=== PATIENT | male | born 1965 | race Caucasian/White ===

== ENCOUNTER 2023-01-26 15:09 | Emergency (ER) | payer OTHER ==
[~2023-01-26] VITALS: Ht 185.4 cm; Wt 129.3 kg
[~2023-01-26 15:09] MED LIST: ADDERALL 20 MG20 MG PO; AMPHETAMINE SAL20 MG PO; ASCORBIC ACID500 M3 PO; ASPIR-LOW81 MG PO; B COMPLEX1 EACH PO; CARAFATE1 GM PO; CARAFATE1 GM/10 ML PO; CHILDREN'S160 MG/56 PO; DILAUDID4 MG PO; DULOXETINE HCL20 MG PO; FAMOTIDINE40 MG PO; FERGON240 MG PO; FLUVIRIN 245 MCG/010 IM; FUROSEMIDE20 MG PO; FUROSEMIDE40 MG PO; GABAPENTIN300 MG PO; GOLYTELY SOLU4000 ML PO; GUANFACINE HCL2 MG PO; HYDROCODONE-ACE15 M2 PO; IRON325 M1 PO; LASIX20 MG PO; LIDOCAINE HCL100 ML MT; LISINOPRIL10 MG PO; LORTAB 7.5-5001 EACH PO; MAPAP325 MG PO; METOPROLOL TART25 MG PO; MIRAPEX0.5 MG PO; MULTIVITAMINS1 EAC7 PO; NORCO 5-325 TA1 EACH PO; NORCO 7.5-3251 EACH PO; ONDANSETRON ODT4 MG SL; OXYCODONE HCL10 MG PO; OXYCODONE-ACET1 EAC1 PO; PANTOPRAZOLE SO40 MG PO; PEPCID20 MG PO; PERCOCET 5-3251 EACH PO; POTASSIUM CHLO20 ME1 PO; PRAMIPEXOLE DI0.5 MG PO; PRILOSEC20 MG PO; PROMETHAZINE HC25 M1 PO; PROTONIX40 MG PO; SUCRALFATE1 GM PO; VITAMIN D-40010 MCG PO; ZOFRAN ODT4 MG SL
--- OUTSIDE RECORDS SUMMARY | 2023-01-26 15:12 | XMS ---
PreManage Notification: SARABJIT ESPITIA Security Resident Manager Events No recent Security Events currently on file CRITERIA MET - 6 ED Visits in 6 Months - [facility] - [facility] - 2 Visits in 30 Days CARE PROVIDERS -[place]- Dentist: Consulting Database Administrator [facility] PHONE: [phone] MANUELA SOMMERS [facility] Medicine 06/04/2016-Current PHONE: Unknown Katlyn Reddy Nurse Practitioner: [facility] PHONE: Unknown Deyanira Gudino Community Health Worker 09/20/2022-Current PHONE: [phone] Erica has no Care Guidelines for this patient. Arlene VISIT COUNT (12 MO.) [address] [address] SALLY Montiel TOTAL 18 NOTE: Visits indicate total known visits. ED/UCC VISIT TRACKING (12 MO.) 01/26/2023 15:10 [facility] [place] TYPE: Emergency COMPLAINT: - HEART PALPATATIONS 01/05/2023 13:35 [facility] TYPE: Emergency DIAGNOSES: - Heart failure, unspecified - VOMITING 01/02/2023 08:38 [facility] TYPE: Emergency DIAGNOSES: - Acute cystitis without hematuria - Heart failure, unspecified - HEART PROBLEM 12/30/2022 14:25 [facility] [place] TYPE: Emergency DIAGNOSES: - Cardiomyopathy due to drug and external agent - Localized edema - Other stimulant abuse, uncomplicated - Patient's noncompliance with other medical treatment and regimen due to unspecified reason - RIGHT EAR PROBLEM BILATERAL LEG BLISTERS 12/15/2022 11:11 [facility] [place] TYPE: Emergency DIAGNOSES: - Fluid overload, unspecified - Patient's other noncompliance with medication regimen - CHF SWELLING 11/08/2022 09:45 [facility] [place] TYPE: Emergency DIAGNOSES: - Heart failure, unspecified - Syncope and collapse - LEG PAIN/SWELLING 11/06/2022 08:48 [facility] [place] TYPE: Emergency DIAGNOSES: - Localized edema - Leg swelling 10/10/2022 22:35 [facility] [place] TYPE: Emergency DIAGNOSES: - Acute on chronic systolic (congestive) heart failure - Cardiogenic shock - Hypomagnesemia - Other stimulant abuse, uncomplicated - CP 09/27/2022 12:10 [facility] TYPE: Emergency DIAGNOSES: - Shortness of breath - Unspecified atrial fibrillation - Palpitations 09/11/2022 12:53 [facility] [place] TYPE: Emergency DIAGNOSES: - Other psychoactive substance abuse, uncomplicated - Unspecified atrial fibrillation - SOB 09/05/2022 17:48 [facility] [place] TYPE: Emergency DIAGNOSES: - Unspecified atrial fibrillation - CHEST PAIN 08/09/2022 18:12 [facility] [place] TYPE: Emergency DIAGNOSES: - AFIB 08/06/2022 18:30 [facility] [place] TYPE: Emergency DIAGNOSES: - Nausea with vomiting, unspecified - VOMITING SOB 07/31/2022 07:50 [facility] [place] TYPE: Emergency DIAGNOSES: - Unspecified atrial fibrillation - arm pain difficulty breathing 06/04/2022 08:45 [facility] [place] TYPE: Emergency DIAGNOSES: - Adverse effect of unspecified drugs, medicaments and biological substances, initial encounter - POST OP PROBLEM VOMITING 05/05/2022 15:43 [facility] [place] TYPE: Emergency DIAGNOSES: - Shortness of breath - Syncope and collapse - SHORTNESS OF BREATH 05/04/2022 01:43 [facility] [place] TYPE: Emergency DIAGNOSES: - Epigastric pain - ABD PAIN VOMITING 03/13/2022 17:48 [facility] [place] TYPE: Emergency DIAGNOSES: - Dyspnea, unspecified - Suicidal ideations - DIZZY GI ISSUES INPATIENT VISIT TRACKING (12 MO.) 10/11/2022 09:12 [facility] TYPE: Cardiology DIAGNOSES: - Acute kidney failure with tubular necrosis - Acute kidney failure, unspecified - Acute on chronic systolic (congestive) heart failure - Cardiogenic shock - COVID-19 - Longstanding persistent atrial fibrillation - Other stimulant abuse, uncomplicated - Pneumonia due to coronavirus disease 2018 - Unspecified systolic (congestive) heart failure - Cardiogenic shock 09/11/2022 12:53 [facility] [place] TYPE: Medical Surgical DIAGNOSES: - Hypoxemia - Other psychoactive substance abuse, uncomplicated - Unspecified atrial fibrillation 08/09/2022 18:12 [facility] [place] TYPE: Medical Surgical DIAGNOSES: - Unspecified atrial fibrillation 07/31/2022 07:50 [facility] DIAGNOSES: - Unspecified atrial fibrillation [email or web address]
[2023-01-26] MEDS ORDERED: BUDESONIDE-FO10.2 G1 IH (17:24)
[2023-01-26] MEDS ORDERED: WELLBUTRIN XL150 MG PO (17:25)
[2023-01-26] MEDS ORDERED: DILTIAZEM HCL120 MG PO (17:25)
[2023-01-26] MEDS ORDERED: ELIQUIS5 MG PO (17:26)
[2023-01-26] MEDS ORDERED: JARDIANCE10 MG PO (17:26)
[2023-01-26] MEDS ORDERED: FUROSEMIDE20 MG PO (17:27)
[2023-01-26] MEDS ORDERED: HYDROCODON-ACE1 EA11 PO (17:28)
[2023-01-26] MEDS ORDERED: LOSARTAN POTASS25 MG PO (17:28)
[2023-01-26] MEDS ORDERED: LISINOPRIL-HCT1 EACH PO (17:28)
[2023-01-26] MEDS ORDERED: SPIRONOLACTONE25 MG PO (17:29)
[2023-01-26] MEDS ORDERED: OMEPRAZOLE40 MG PO (17:29)
[2023-01-26] MEDS ORDERED: METOPROLOL SUC100 MG PO (17:29)
[2023-01-26] MEDS ORDERED: TORSEMIDE10 MG PO (17:30)
[2023-01-26] MEDS ORDERED: SENNA8.6 MG PO (17:30)
[2023-01-26] MEDS ORDERED: MAGNESIUM OXID400 M1 PO (18:45)
[2023-01-26 19:11] VITALS: BP 125/99
--- NOTE | 2023-01-26 21:35 | EKG ---
[facility] [address] [place] [address] Signed Atrial fibrillation with slow ventricular response Rightward axis Incomplete right bundle branch block Prolonged QT Abnormal ECG No previous ECGs available Confirmed by LIZ ORTEGA MD ([id number]) on 01/26/2023 9:35:33 PM Electronically Signed By: LIZ ORTEGA MD 01/26/23 2135 PATIENT NAME: NUPURSARABJIT BAUDILIO Electrocardiogram DATE OF : 61 PHYSICIAN: LIZ ORTEGA MD REPORT #: [id number] REPORT IS CONFIDENTIAL AND NOT TO BE RELEASED WITHOUT AUTHORIZATION
== END 2023-01-26 19:11 | disposition home or self-care (01) ==
LOC: ED 15:09
DX: I50.9 Heart failure, unspecified (principal); J44.9 Chronic obstructive pulmonary disease, unspecified; I48.91 Unspecified atrial fibrillation; E11.9 Type 2 diabetes mellitus without complications; Z88.8 Allergy status to other drugs, medicaments and biological substances; Z79.899 Other long term (current) drug therapy
CPT/HCPCS: 36415; 71045; 80053; 83735; 83880; 84484; 85025; 96374; 99285-25; J1940

== ENCOUNTER 2023-01-30 12:06 | Inpatient (IN) | payer OTHER ==
[2023-01-30] VITALS (13 sets, daily range): BP systolic 86–109; BP diastolic 61–94
[~2023-01-30] VITALS: Ht 185.4 cm; Wt 120.7 kg
[~2023-01-30 12:06] MED LIST changes: +BUDESONIDE-FO10.2 G1 IH; +DILTIAZEM HCL120 MG PO; +ELIQUIS5 MG PO; +HYDROCODON-ACE1 EA11 PO; +JARDIANCE10 MG PO; +LISINOPRIL-HCT1 EACH PO; +LOSARTAN POTASS25 MG PO; +MAGNESIUM OXID400 M1 PO; +METOPROLOL SUC100 MG PO; +OMEPRAZOLE40 MG PO; +SENNA8.6 MG PO; +SPIRONOLACTONE25 MG PO; +TORSEMIDE10 MG PO; +WELLBUTRIN XL150 MG PO
--- OUTSIDE RECORDS SUMMARY | 2023-01-30 12:11 | XMS ---
PreManage Notification: SARABJIT ESPITIA Security Budget Assistant Events No recent Security Events currently on file CRITERIA MET - 6 ED Visits in 6 Months - [facility] - [facility] - 2 Visits in 30 Days CARE PROVIDERS -[place]- Dentist: Windows Application Packager [facility] PHONE: [phone] MANUELA SOMMERS [facility] Medicine 06/04/2016-Current PHONE: Unknown Katlyn Reddy Nurse Practitioner: [facility] PHONE: Unknown Deyanira Gudino Community Health Worker 09/20/2022-Current PHONE: [phone] Erica has no Care Guidelines for this patient. Arlene VISIT COUNT (12 MO.) [address] [address] SALLY Montiel TOTAL 19 NOTE: Visits indicate total known visits. ED/UCC VISIT TRACKING (12 MO.) 01/30/2023 12:08 [facility] [place] TYPE: Emergency COMPLAINT: - SYNCOPE EPISODES, DIZZY, NAUSEA, LOW B/P 01/26/2023 15:10 [facility] TYPE: Emergency COMPLAINT: - HEART PALPATATIONS 01/05/2023 13:35 [facility] [place] TYPE: Emergency DIAGNOSES: - Heart failure, unspecified - VOMITING 01/02/2023 08:38 [facility] [place] TYPE: Emergency DIAGNOSES: - Acute cystitis without hematuria - Heart failure, unspecified - HEART PROBLEM 12/30/2022 14:25 [facility] [place] TYPE: Emergency DIAGNOSES: - Cardiomyopathy due to drug and external agent - Localized edema - Other stimulant abuse, uncomplicated - Patient's noncompliance with other medical treatment and regimen due to unspecified reason - RIGHT EAR PROBLEM BILATERAL LEG BLISTERS 12/15/2022 11:11 [facility] [place] TYPE: Emergency DIAGNOSES: - Fluid overload, unspecified - Patient's other noncompliance with medication regimen - CHF SWELLING 11/08/2022 09:45 [facility] [place] TYPE: Emergency DIAGNOSES: - Heart failure, unspecified - Syncope and collapse - LEG PAIN/SWELLING 11/06/2022 08:48 [facility] [place] TYPE: Emergency DIAGNOSES: - Localized edema - Leg swelling 10/10/2022 22:35 [facility] [place] TYPE: Emergency DIAGNOSES: - Acute on chronic systolic (congestive) heart failure - Cardiogenic shock - Hypomagnesemia - Other stimulant abuse, uncomplicated - CP 09/27/2022 12:[address] [facility] TYPE: Emergency DIAGNOSES: - Shortness of breath - Unspecified atrial fibrillation - Palpitations 09/11/2022 12:53 [facility] [place] TYPE: Emergency DIAGNOSES: - Other psychoactive substance abuse, uncomplicated - Unspecified atrial fibrillation - SOB 09/05/2022 17:48 [facility] [place] TYPE: Emergency DIAGNOSES: - Unspecified atrial fibrillation - CHEST PAIN 08/09/2022 18:12 [facility] [place] TYPE: Emergency DIAGNOSES: - AFIB 08/06/2022 18:30 [facility]: [facility] DIAGNOSES: - Nausea with vomiting, unspecified - VOMITING SOB 07/31/2022 07:50 [facility] [place] TYPE: Emergency DIAGNOSES: - Unspecified atrial fibrillation - arm pain difficulty breathing 06/04/2022 08:45 [facility] [place] TYPE: Emergency DIAGNOSES: - Adverse effect of unspecified drugs, medicaments and biological substances, initial encounter - POST OP PROBLEM VOMITING 05/05/2022 15:43 [facility] TYPE: Emergency DIAGNOSES: - Shortness of breath - Syncope and collapse - SHORTNESS OF BREATH 05/04/2022 01:43 [facility] [employer] [place] TYPE: Emergency DIAGNOSES: - Epigastric pain - ABD PAIN VOMITING 03/13/2022 17:48 [facility] [employer] [place] TYPE: Emergency DIAGNOSES: - Dyspnea, unspecified - Suicidal ideations - DIZZY GI ISSUES INPATIENT VISIT TRACKING (12 MO.) 10/11/2022 09:12 [facility] TYPE: Cardiology DIAGNOSES: - Acute kidney failure with tubular necrosis - Acute kidney failure, unspecified - Acute on chronic systolic (congestive) heart failure - Cardiogenic shock - COVID-19 - Longstanding persistent atrial fibrillation - Other stimulant abuse, uncomplicated - Pneumonia due to coronavirus disease 2018 - Unspecified systolic (congestive) heart failure - Cardiogenic shock 09/11/2022 12:53 [facility] [employer] [place] TYPE: Medical Surgical DIAGNOSES: - Hypoxemia - Other psychoactive substance abuse, uncomplicated - Unspecified atrial fibrillation 08/09/2022 18:12 [facility] OR TYPE: Medical Surgical DIAGNOSES: - Unspecified atrial fibrillation 07/31/2022 07:50 [facility] [place] TYPE: Medical Surgical DIAGNOSES: - Unspecified atrial fibrillation [email or web address]
[2023-01-30] MEDS ORDERED: FERROUS SULFAT325 M2 PO (17:07)
[2023-01-30] MEDS ORDERED: VENTOLIN HFA18 GM INH (17:12)
[2023-01-30] MEDS ORDERED: PREGABALIN75 MG PO (17:13)
--- NOTE | 2023-01-30 17:54 | NUR ---
PATIENT ADMITTED TO CCU FOR HYPOTENSION, ADMITTED ON A DOBUTAMINE GTT AT 14 MCG/KG/MIN. PT IS IN A SLOW AFIB, HR 50-60s. INITIAL BPs SYSTOLIC 85-90s. TITRATE OFF DOBUTAMINE TO KEEP MAP >65, AND START PT ON NOREPI. PT'S SWAPNA IN ROOM UPON ADMISSION WHO IS VERY HARD OF HEARING. PT STATES THEY ARE LIVING AT THE [facility], AND THEIR CASHIER AND SALESPERSON IS SWAPNA. IVF STARTED AT 500 ML/HR FOR A TOTAL OF 1500 ML, THEN WILL BE 75 ML/HR. PT GIVEN DINNER AND CAREGIVER TRAY BROUGHT INTO HIS , WHO IS NOW LEAVING FOR THE NIGHT. PT C/O NAUSEA WELL HUNGER. LUNG SOUNDS ARE CLEAR. PT IS ON ROOM AIR. EDEMA PRESENT IN LOWER EXT BUT IS 1+. PT REPORTS HE WAS HOSPITALIZED AT [place] RECENTLY AFTER BEING LIFE FLIGHTED FROM [facility]. WILL OBTAIN RECORDS FROM THEM IF POSSIBLE. CALL LIGHT IN REACH AND PT ORIENTED TO ROOM.
--- NOTE | 2023-01-30 18:57 | NUR ---
LEVOPHED TURNED OFF AT THIS TIME. LAST BP 103/75 (85). CONTINUE TO MONITOR.
--- NOTE | 2023-01-30 20:45 | NUR ---
PT ASSESSED AND FOUND TO BE LAYING IN HOSPITAL BED WATCHING TV. PT IS ALERT AND ORIENTED X 4 WITH A GSC OF 15. PT DOES NOT APPEAR TO BE IN ANY DISTRESS. RESPIRATIONS ARE NON-LABORED, LS CLEAR THROUGHOUT AND PT IS ON RA. ALAM PERAMETERS SET. PT DENIES CP/ DISOCMOFRT OR ANY DIZZINESS. PT STATES HE IS EXPERIENCING SOB, HOWEVER, THIS BEEN AN ONGOING ISSUE AND HIS SYMPTOMS ARE NO WORSE THAN USUAL. PT ABLE TO MOVE ALL FOUR EXTREMITIES, CMS INTACT IN UPPERS, AND LOWER EXTREMITIES WITH NOTED NUMBNESS AND TINGLING SENSATION. THIS IS OF A NORMAL FINDING PT REPORTS. PT WITH C/O BILATERAL LOWER EXTREMITY PAIN. PRN PAIN MED ADMINISTERED AND PT RE-ADJUSTED TO POSITION OF COMFORT IN BED. PT WITH NO FURTHER COMPLAINTS OR CONCERNS AT THIS TIME.
[2023-01-31] VITALS (12 sets, daily range): BP systolic 96–132; BP diastolic 69–101
--- NOTE | 2023-01-31 07:01 | NUR ---
PT REMAINS AWAKE, ALERT AND ORIENTED X 4 WITH A GCS OF 15. PT CONTINUES TO FOLLOW COMMANDS, AND MOVES ALL FOUR EXTREMITIES WITH PURPOSE. PT HAS BEEIN IN A-FIB, NORMOTENSIVE AND A-FEBFRILE THROUGHOUT THE SHIFT. PT'S LS ARE CLEAR, RESPIRATIONS ARE NON-LABORED AND PT CONTINUES TO SPEAK IN FULL SENTANCES. PT WITH ADEQUATE UO. LAST BM NOTED ON 01/30. LABS NA OF 142, K OF 4.1, CREATNINE IMPROVED FROM 3.17 TO 2.54.
--- NOTE | 2023-01-31 07:57 | NUR ---
INTO PATIENT'S ROOM FOR ASSESSMENT, VITALS AND BREAKFSAT. PT RESTING, WATCHING SOMETHIGN ON HIS CELL PHONE AND APPEARS COMFORTABLE, BREATHING EASY. PT REMAINS ON ROOM AIR AND SP02 IS 95%. HR IN THE 60-70s, AFIB. PT HAS REMAINED OFF NOREPI SINCE 1900 LAST EVENING AND BLOOD PRESSURES HAVE BEEN STABLE, AVERAGING 110-120s SYSTOLIC. URINE OUTPUT HAS BEEN GOOD OVERNIGHT. PT ENDORSES THAT HE DOES HAVE SOME SOB, BUT STATES "IT'S ABOUT AVERAGE TO NORMAL AMOUNTS OF SHORTNESS OF BREATH FOR ME." STANDING WEIGHT TO BE OBTAINED. SWELLING IN LEGS REMAINS. FINE CRACKLES AUSCULTATED IN RIGHT LOWER BASE, OTHERWISE CLEAR LUNGS. PLAN OF CARE DISCUSSED. AM MEDS GIVEN. CALL LIGHT WITHIN REACH.
--- NOTE | 2023-01-31 10:22 | NUR ---
PATIENT UP TO BATHROOM. PT STATES, "BREAKFAST WAS TERRIBLE." PT ASKING WHEN MD WILL BE IN TO SEE HIM. NO FURTHER NEEDS.
--- NOTE | 2023-01-31 10:33 | NUR ---
DR. DO IN TO SEE PATIENT AND PLAN OF CARE BEING DISCUSSED. PT BROUGHT IN HIS HOME MEDICATIONS AND WILL LET PHARMACY KNOW FOR MED RECONCILLIATION. CONTINUE TO MONITOR.
--- NOTE | 2023-01-31 13:43 | NUR ---
PATIENT RETURNS FROM MRI AND PUT BACK ON CLINIC OFFICE MANAGER. PT STATES HE IS SHORT OF BREATH AFTER LAYING FLAT FROM MRI. SP02 IS 97% ON ROOM AIR. PT'S IN ROOM AND ASLEEP ON THE COUCH. WILL CONTINUE TO MONITOR.
--- NOTE | 2023-01-31 14:23 | NUR ---
PATIENT UP TO BR WITH URINAL. SLEEPING ON COUCH.
[2023-01-31] MEDS ORDERED: WELLBUTRIN XL300 MG PO (16:58)
[2023-01-31] MEDS ORDERED: METOPROLOL SUCC50 MG PO (16:59)
[2023-01-31] MEDS ORDERED: HYDROCODON-ACE1 EA10 PO (17:00)
--- NOTE | 2023-01-31 17:01 | NUR ---
MED REC COMPLETE
--- NOTE | 2023-01-31 17:24 | NUR ---
Spoke with Dilip. He has returned. He recently was moving from [place] to [place] with his . [facility] are [facility] at the [facility]. He states this is difficult at they have to be out [id number] until 6 pm. He is working with [employer] in their [employer] program. He drives and has a car. He does not use any DME. He states his is disabled and he provides care for her. He has a pcp in [facility]. He would like to switch to a pcp here in [place]. I scheduled him with [facility] last stay, he states he did not make the visit. He has free transport from [facility]. I gave him PPCphone number to call and schedule an appt to establish care. Pt denies needs and is working with different agencies. No needs at this time.
[2023-02-01] VITALS (8 sets, daily range): BP systolic 97–138; BP diastolic 63–138
--- NOTE | 2023-02-01 06:41 | NUR ---
PT REMAINS ALERT AND ORIENTED X 4 WITH A GCS OF 15. PT FOLLOWS COMMANDS APPROPIRATELY AND MOVES ALL FOUR EXTREMITIES WITH PURPOSE. PT HAS BEEN IN A-FIB, NORMOTENSIVE AND A-FEBRILE. PT IS CURRENTLY ON PO ANTI-COAG.. PT WITH ADQUATE UO. LAST BM NOTED ON 01/30. PT CONTINUES TO EXPERIENCE PAIN IN BILATERAL LOWER EXTREMITIES. PT STATES HE HAS RESLTESS LEG SYNDROME AND THINKS THIS MAY BE THE CAUSE OF HIS PAIN. LABS: BMP REVEALS NA OF 142, K 3.9, AND IMPROVED CREAT 1.79. HEMOGLOBIN A1C OF 6.2
--- NOTE | 2023-02-01 07:30 | NUR ---
REPORT RECIEVED FROM SOLVENT PROCESS EXTRACTOR OPERATOR RN. PATIENT RESTING IN BED ON RA AT THIS TIME. HEART MONITOR IN PLACE. PATIENT DENIES ANY NEEDS AT THIS TIME. CALL LIGHT IN REACH. BED IN LOWEST POSITION.
--- NOTE | 2023-02-01 09:30 | NUR ---
THIS RN AND STUDENT ESCOBEDO IN TO CARE FOR PATIENT. PATIENTS ASSESSMENT DONE. PATIENTS BREATH SOUNDS CLEAR IN UPPERS AND COARSE IN LOWER LOBES. PATIENT ON RA. PATIENT PREPORTS MINIMAL SOB AT THIS TIME AND STATES "I FEEL LIKE MY NORMAL SELF, I ALWAYS HAVE SOME SOB". PATIENT BOWEL TONES ACTIVE. PATIENT FINISHED HIS BREAKFAST WITH NO ISSUES. PATIENT HAS 1+ EDEMA IN BLE. PATIENT BOWEL TONES ACTIVE. PATIENT DENIES ANY OTHER NEEDS AT THIS TIME. MEDICATIONS GIVEN. CALL LIGHT IN REACH.
[2023-02-01] MEDS ORDERED: FERROUS SULFAT325 M2 PO (10:05)
[2023-02-01] MEDS ORDERED: ELIQUIS5 MG PO (10:06)
[2023-02-01] MEDS ORDERED: LOSARTAN POTASS25 MG PO (10:07)
[2023-02-01] MEDS ORDERED: METOPROLOL SUCC25 MG PO (10:07)
[2023-02-01] MEDS ORDERED: TORSEMIDE10 MG PO (10:08)
[2023-02-01] MEDS ORDERED: MAGNESIUM OXID400 M1 PO (10:08)
[2023-02-01] MEDS ORDERED: WELLBUTRIN XL300 MG PO (10:08)
[2023-02-01] MEDS ORDERED: SENNA8.6 MG PO (10:09)
[2023-02-01] MEDS ORDERED: OMEPRAZOLE40 MG PO (10:09)
[2023-02-01] MEDS ORDERED: ASCORBIC ACID500 M3 PO (10:10)
[2023-02-01] MEDS ORDERED: VITAMIN D-40010 MCG PO (10:10)
--- NOTE | 2023-02-01 11:00 | NUR ---
DO IN TO SEE PATIENT AND REVIEWED PLAN OF CARE. PLAN FOR PATIENT TO DISCHARGE PATIENT AND PATIENT IS AGREEABLE TO THIS PLAN.
--- NOTE | 2023-02-01 11:45 | NUR ---
PHARMACY IN TO REVIEW DISCHARGE INSTRUCTIONS FOR HIS MEDICATIONS. LUNCH AT THE BEDSIDE AND STUDENT RN ESCOBEDO IN TO FOLLOW WITH CARE.
--- NOTE | 2023-02-01 12:30 | NUR ---
THIS RN AND STUDENT RN ESCOBEDO IN TO REVIEW DISCHARGE WITH PATIENT AND HIS SIGNIFICANT OTHER. PHARMACY IN ALREADY TO REVIEW DISCHARGE MEDICATIONS AND PHARMACIST WROTE ALL PATIENTS MEDICATIONS ON A FORUM TO HELP PATIENT COMPLIANCE. IV'S DCD BY STUDENT RN. VITALS DONE. PATIENT DRESSED WITH NO ISSUES. THIS RN AND STUDENT RN WHEELED PATIENT TO THE FRONT WITH HIS SIGNIFICANT OTHER AND ASSISTED PATIENT TO HIS CAR. APT WAS MADE PRIOR TO PATIENTS DISCHARGE FOR 10AM MondayJanuary. APT CARD GIVEN TO PATIENT.
== END 2023-02-01 12:45 | disposition home or self-care (01) | DRG 683 ==
LOC: ED 12:06 → CCU 16:44
PROVIDERS: ADMIT Internal Medicine; ATTEND Internal Medicine
DX: N17.9 Acute kidney failure, unspecified (principal); E87.20 Acidosis, unspecified; I50.22 Chronic systolic (congestive) heart failure; I13.0 Hypertensive heart and chronic kidney disease with heart failure and stage 1 through stage 4 chronic kidney disease, or unspecified chronic kidney disease; I48.20 Chronic atrial fibrillation, unspecified; N18.31 Chronic kidney disease, stage 3a; J44.9 Chronic obstructive pulmonary disease, unspecified; I95.9 Hypotension, unspecified; G62.9 Polyneuropathy, unspecified; R73.03 Prediabetes; G89.4 Chronic pain syndrome; F15.10 Other stimulant abuse, uncomplicated; K27.9 Peptic ulcer, site unspecified, unspecified as acute or chronic, without hemorrhage or perforation; Z86.711 Personal history of pulmonary embolism; Z98.84 Bariatric surgery status; Z88.8 Allergy status to other drugs, medicaments and biological substances
CPT/HCPCS: 36415; 70450; 70551; 71045; 80048; 80053; 82570; 83036; 83880; 84300; 84550; 85025; 96361; 96374; 96375; 96376; 99285-25; A9270; J1250; J7040; J7121

== ENCOUNTER 2023-03-28 12:33 | Emergency (ER) | payer OTHER ==
[~2023-03-28] VITALS: Ht 185.4 cm; Wt 115.2 kg
--- OUTSIDE RECORDS SUMMARY | ~2023-03-28 | XMS | Continuity of Care Document ---
Demographics + + + | Address | [address] [facility] [address] | | | [place] [address] | + + + | Preferred Language | Unknown | + + + | Marital Status | | + + + | Mormon Affiliation | Unknown | + + + | Race | White | + + + | Ethnic Group | Not or | + + + Author + + + | Author | [facility] | + + + | Organization | [facility] | + + + | Address | [address] | | | [place] [address] | + + + | Phone | | + + + Care Team Providers + + + + | Care Water Tanker Driver Name | Role | Phone | + + + + Unavailable | Unavailable | + + + + Unavailable | Unavailable | + + + + Unavailable | Unavailable | + + + + Unavailable | Unavailable | + + + + Allergies and Intolerances + + + + + | date | description | facility | type | + + + + + | (no date) | Valium | [facility] | (unknown) | | | | [facility] | | + + + + + | (no date) | Valium 2 MG Oral | [facility] | (unknown) | | | Tablet | [facility] | | + + + + + | (no date) | Diazepam | [facility] | | + + + + + | (no date) | diazepam | [facility] | | + + + + + | (no date) | Diazepam | [facility] ([facility] | | + + + + + | (no date) | diazepam | [facility] | (unknown) | + + + + + | (no date) | Diazepam | [facility] ([facility] | | [facility] | | + + + + + Encounters No information. Functional Status No information. Immunizations + + + + | date | description | facility | + + + + | 2023-01-26 00:00 | No vaccine administered | [facility] | + + + + Medications + + + + | date | description | facility | + + + + | 2023-01-26 00:00 | LIDOCAINE 2% VISCOUS | [facility] | + + + + | 2023-02-01 00:00 | LIDOCAINE 2% VISCOUS | [facility] | + + + + | 2023-02-17 00:00 | LIDOCAINE 2% VISCOUS | [facility] | + + + + | 2023-03-12 00:00 | LIDOCAINE 2% VISCOUS | [facility] | + + + + | 2023-01-26 00:00 | lidocaine hydrochloride 20 | [facility] | | | MG/ML Mucous Membrane | | | | Topical Rody | | + + + + | 2016-02-09 00:00 | FAMOTIDINE | [facility] | + + + + | 2016-02-09 00:00 | FAMOTIDINE | [facility] | + + + + | 2016-08-11 00:00 | FAMOTIDINE | [facility] | + + + + | 2016-08-11 00:00 | FAMOTIDINE | [facility] | + + + + | 2016-02-09 00:00 | famotidine 20 MG Oral | [facility] | | | Tablet [Pepcid] | | + + + + | 2016-08-11 00:00 | famotidine 20 MG Oral | [facility] | | | Tablet [Pepcid] | | + + + + | 2014-10-10 00:00 | OXYCODONE | [facility] | | | HCL/ACETAMINOPHEN | | + + + + | 2014-10-10 00:00 | OXYCODONE | [facility] | | | HCL/ACETAMINOPHEN | | + + + + | 2014-11-02 00:00 | OXYCODONE | [facility] | | | HCL/ACETAMINOPHEN | | + + + + | 2014-11-02 00:00 | OXYCODONE | [facility] | | | HCL/ACETAMINOPHEN | | + + + + | 2016-04-22 00:00 | OXYCODONE | [facility] | | | HCL/ACETAMINOPHEN | | + + + + | 2016-04-22 00:00 | OXYCODONE | [facility] | | | HCL/ACETAMINOPHEN | | + + + + | 2023-01-26 00:00 | OXYCODONE | [facility] | | | HCL/ACETAMINOPHEN | | + + + + | 2023-02-01 00:00 | OXYCODONE | [facility] | | | HCL/ACETAMINOPHEN | | + + + + | 2023-02-17 00:00 | OXYCODONE | [facility] | | | HCL/ACETAMINOPHEN | | + + + + | 2023-03-12 00:00 | OXYCODONE | [facility] | | | HCL/ACETAMINOPHEN | | + + + + | 2014-10-10 00:00 | acetaminophen 325 MG / | [facility] | | | oxycodone hydrochloride 5 | | | | MG Oral Tab | | + + + + | 2014-11-02 00:00 | acetaminophen 325 MG / | [facility] | | | oxycodone hydrochloride 5 | | | | MG Oral Tab | | + + + + | 2016-04-22 00:00 | acetaminophen 325 MG / | [facility] | | | oxycodone hydrochloride 5 | | | | MG Oral Tab | | + + + + | 2023-01-26 00:00 | acetaminophen 325 MG / | [facility] | | | oxycodone hydrochloride 5 | | | | MG Oral Tab | | + + + + | 2023-01-18 00:00 | Iron 325 (65 Fe) MG Oral | [facility] | | | Tablet | | + + + + | 2019-05-21 00:00 | Iron 325 (65 Fe)MG Oral | [facility] | | | Tablet | | + + + + | 2019-11-25 00:00 | ProAir HFA 108 (90 Base) | [facility] | | | MCG/ACT Inhalation Aerosol | | | | Solution | | + + + + | 2020-03-09 00:00 | ProAir HFA 108 (90 Base) | [facility] | | | MCG/ACT Inhalation Aerosol | | | | Solution | | + + + + | 2023-01-05 00:00 | Budesonide-Formoterol | [facility] | | | Fumarate 160-4.5 MCG/ACT | | | | Inhalation Aerosol | | + + + + | 2014-09-05 00:00 | Lisinopril 20 MG OR TABS | [facility] | | | | | + + + + | 2023-01-05 00:00 | 60 ACTUAT budesonide 0.16 | [facility] | | | MG/ACTUAT / formoterol | | | | fumarate 0.0045 MG/ACTUAT | | | | Metered Dose Inhaler | | + + + + | 2022-06-15 00:00 | 60 ACTUAT budesonide 0.16 | [facility] | | | MG/ACTUAT / formoterol | | | | fumarate 0.0045 MG/ACTUAT | | | | Metered Dose Inhaler | | | | [Symbicort] | | + + + + | 2022-08-17 00:00 | 60 ACTUAT budesonide 0.16 | [facility] | | | MG/ACTUAT / formoterol | | | | fumarate 0.0045 MG/ACTUAT | | | | Metered Dose Inhaler | | | | [Symbicort] | | + + + + | 2022-06-15 00:00 | Symbicort 160-4.5 MCG/ACT | [facility] | | | Inhalation Aerosol | | + + + + | 2022-08-17 00:00 | Symbicort 160-4.5 MCG/ACT | [facility] | | | Inhalation Aerosol | | + + + + | 2014-06-09 00:00 | ASPIRIN | [facility] | + + + + | 2014-06-09 00:00 | ASPIRIN | [facility] | + + + + | 2014-06-09 00:00 | aspirin 81 MG Delayed | [facility] | | | Release Oral Tablet | | | | [Aspir-Low] | | + + + + | 2014-09-05 00:00 | acetaminophen 300 MG / | [facility] | | | hydrocodone bitartrate 5 MG | | | | Oral Tablet [Vicodin] | | + + + + | 2023-01-26 00:00 | Budesonide/Formoterol | [facility] | | | Fumarate | | + + + + | 2023-02-01 00:00 | Budesonide/Formoterol | [facility] | | | Fumarate | | + + + + | 2023-02-17 00:00 | Budesonide/Formoterol | [facility] | | | Fumarate | | + + + + | 2023-03-12 00:00 | Budesonide/Formoterol | [facility] | | | Fumarate | | + + + + | 2023-01-26 00:00 | budesonide 0.16 MG/ACTUAT | [facility] | | | / formoterol fumarate | | | | 0.0045 MG/AC | | + + + + | 2023-01-26 00:00 | APIXABAN | [facility] | + + + + | 2023-02-01 00:00 | APIXABAN | [facility] | + + + + | 2023-02-17 00:00 | APIXABAN | [facility] | + + + + | 2023-03-12 00:00 | APIXABAN | [facility] | + + + + | 2023-01-18 00:00 | apixaban 5 MG Oral Tablet | [facility] | | | [Eliquis] | | + + + + | 2023-01-24 00:00 | apixaban 5 MG Oral Tablet | [facility] | | | [Eliquis] | | + + + + | 2023-01-26 00:00 | apixaban 5 MG Oral Tablet | [facility] | | | [Eliquis] | | + + + + | 2014-09-05 00:00 | Multiple Vitamins OR TABS | [facility] | | | | | + + + + | 2019-05-21 00:00 | Centrum Silver Ultra Mens | [facility] | | | Oral Tablet | | + + + + | 2023-01-26 00:00 | EMPAGLIFLOZIN | [facility] | + + + + | 2023-02-01 00:00 | EMPAGLIFLOZIN | [facility] | + + + + | 2023-02-17 00:00 | EMPAGLIFLOZIN | [facility] | + + + + | 2023-03-12 00:00 | EMPAGLIFLOZIN | [facility] | + + + + | 2023-01-18 00:00 | empagliflozin 10 MG Oral | [facility] | | | Tablet [Jardiance] | | + + + + | 2023-01-26 00:00 | empagliflozin 10 MG Oral | [facility] | | | Tablet [Jardiance] | | + + + + | 2023-02-27 00:00 | Vitamin D | [facility] | | | (Cholecalciferol) 10 MCG | | | | (400 UNIT) Oral Capsule | | + + + + | 2019-05-21 00:00 | Vitamin B12 1000MCG Oral | [facility] | | | Tablet Extended Release | | + + + + | 2014-09-05 00:00 | Vicodin 5-300 MG OR TABS | [facility] | | | | | + + + + | 2019-11-25 00:00 | Potassium Chloride ER 20 | [facility] | | | MEQ Oral Tablet Extended | | | | Release | | + + + + | 2019-05-21 00:00 | Potassium Chloride ER | [facility] | | | 20MEQ Oral Tablet Extended | | | | Release | | + + + + | 2023-01-18 00:00 | Eliquis 5 MG Oral Tablet | [facility] | | | | | + + + + | 2023-01-24 00:00 | Eliquis 5 MG Oral Tablet | [facility] | | | | | + + + + | 2023-01-18 00:00 | Jardiance 10 MG Oral | [facility] | | | Tablet | | + + + + | 2023-02-27 00:00 | Ascorbic Acid 500 MG Oral | [facility] | | | Tablet | | + + + + | 2022-06-15 00:00 | benzonatate 100 MG Oral | [facility] | | | Capsule | | + + + + | 2023-01-26 00:00 | GUANFACINE HCL | [facility] | + + + + | 2023-02-01 00:00 | GUANFACINE HCL | [facility] | + + + + | 2023-02-17 00:00 | GUANFACINE HCL | [facility] | + + + + | 2023-03-12 00:00 | GUANFACINE HCL | [facility] | + + + + | 2023-01-26 00:00 | guanfacine 2 MG Oral | [facility] | | | Tablet | | + + + + | 2023-01-26 00:00 | | [facility] | | | LISINOPRIL/HYDROCHLOROTHIAZ | | | | RACHEL | | + + + + | 2023-02-01 00:00 | | [facility] | | | LISINOPRIL/HYDROCHLOROTHIAZ | | | | RACHEL | | + + + + | 2023-02-17 00:00 | | [facility] | | | LISINOPRIL/HYDROCHLOROTHIAZ | | | | RACHEL | | + + + + | 2023-03-12 00:00 | | [facility] | | | LISINOPRIL/HYDROCHLOROTHIAZ | | | | RACHEL | | + + + + | 2019-05-21 00:00 | hydrochlorothiazide 12.5 | [facility] | | | MG / lisinopril 20 MG Oral | | | | Tablet | | + + + + | 2019-11-25 00:00 | hydrochlorothiazide 12.5 | [facility] | | | MG / lisinopril 20 MG Oral | | | | Tablet | | + + + + | 2020-03-09 00:00 | hydrochlorothiazide 12.5 | [facility] | | | MG / lisinopril 20 MG Oral | | | | Tablet | | + + + + | 2022-06-15 00:00 | hydrochlorothiazide 12.5 | [facility] | | | MG / lisinopril 20 MG Oral | | | | Tablet | | + + + + | 2022-06-29 00:00 | hydrochlorothiazide 12.5 | [facility] | | | MG / lisinopril 20 MG Oral | | | | Tablet | | + + + + | 2023-01-26 00:00 | hydrochlorothiazide 12.5 | [facility] | | | MG / lisinopril 20 MG Oral | | | | Tablet | | + + + + | 2020-03-09 00:00 | ondansetron 4 MG Oral | [facility] | | | Tablet | | + + + + | 2020-06-16 00:00 | ondansetron 4 MG Oral | [facility] | | | Tablet | | + + + + | 2023-01-26 00:00 | POTASSIUM CHLORIDE | [facility] | + + + + | 2023-02-01 00:00 | POTASSIUM CHLORIDE | [facility] | + + + + | 2023-02-17 00:00 | POTASSIUM CHLORIDE | [facility] | + + + + | 2023-03-12 00:00 | POTASSIUM CHLORIDE | [facility] | + + + + | 2019-05-21 00:00 | potassium chloride 20 MEQ | [facility] | | | Extended Release Oral | | | | Tablet | | + + + + | 2019-11-25 00:00 | potassium chloride 20 MEQ | [facility] | | | Extended Release Oral | | | | Tablet | | + + + + | 2023-01-26 00:00 | potassium chloride 20 MEQ | [facility] | | | Extended Release Oral | | | | Tablet | | + + + + | 2019-05-21 00:00 | ranitidine 150 MG Oral | [facility] | | | Tablet | | + + + + | 2023-01-26 00:00 | TORSEMIDE | [facility] | + + + + | 2023-02-01 00:00 | TORSEMIDE | [facility] | + + + + | 2023-02-17 00:00 | TORSEMIDE | [facility] | + + + + | 2023-03-12 00:00 | TORSEMIDE | [facility] | + + + + | 2022-12-26 00:00 | torsemide 10 MG Oral | [facility] | | | Tablet | | + + + + | 2023-01-26 00:00 | torsemide 10 MG Oral | [facility] | | | Tablet | | + + + + | 2023-01-26 00:00 | Magnesium Oxide | [facility] | + + + + | 2023-01-26 00:00 | Magnesium Oxide | [facility] | + + + + | 2023-02-01 00:00 | Magnesium Oxide | [facility] | + + + + | 2023-01-26 00:00 | magnesium oxide 400 MG | [facility] | | | Oral Tablet | | + + + + | 2022-06-15 00:00 | ascorbic acid 500 MG Oral | [facility] | | | Capsule | | + + + + | 2023-02-16 00:00 | ascorbic acid 500 MG Oral | [facility] | | | Capsule | | + + + + | 2023-01-26 00:00 | OMEPRAZOLE | [facility] | + + + + | 2023-02-01 00:00 | OMEPRAZOLE | [facility] | + + + + | 2023-02-17 00:00 | OMEPRAZOLE | [facility] | + + + + | 2023-03-12 00:00 | OMEPRAZOLE | [facility] | + + + + | 2023-01-26 00:00 | omeprazole 40 MG Delayed | [facility] | | | Release Oral Capsule | | + + + + | 2023-02-17 00:00 | SPIRONOLACTONE | [facility] | + + + + | 2023-03-12 00:00 | SPIRONOLACTONE | [facility] | + + + + | 2022-12-26 00:00 | Spironolactone 25 MG Oral | [facility] | | | Tablet | | + + + + | 2023-01-23 00:00 | FeroSul 325 (65 Fe) MG | [facility] | | | Oral Tablet | | + + + + | 2019-05-21 00:00 | sucralfate 100 MG/ML Oral | [facility] | | | Suspension [Carafate] | | + + + + | 2022-06-15 00:00 | sucralfate 100 MG/ML Oral | [facility] | | | Suspension [Carafate] | | + + + + | 2014-09-05 00:00 | sucralfate 1000 MG Oral | [facility] | | | Tablet [Carafate] | | + + + + | 2023-01-26 00:00 | ACETAMINOPHEN | [facility] | + + + + | 2023-02-01 00:00 | ACETAMINOPHEN | [facility] | + + + + | 2023-02-17 00:00 | ACETAMINOPHEN | [facility] | + + + + | 2023-03-12 00:00 | ACETAMINOPHEN | [facility] | + + + + | 2023-01-26 00:00 | acetaminophen 325 MG Oral | [facility] | | | Tablet [Mapap] | | + + + + | 2022-06-15 00:00 | Vitamin C 500 MG Oral | [facility] | | | Capsule | | + + + + | 2023-02-16 00:00 | Vitamin C 500 MG Oral | [facility] | | | Capsule | | + + + + | 2019-05-21 00:00 | vitamin B12 1 MG Extended | [facility] | | | Release Oral Tablet | | + + + + | 2019-11-25 00:00 | Bactrim DS 800-160 MG Oral | [facility] | | | Tablet | | + + + + | 2014-09-05 00:00 | pantoprazole 20 MG Delayed | [facility] | | | Release Oral Tablet | | + + + + | 2022-06-15 00:00 | Benzonatate 100 MG Oral | [facility] | | | Capsule | | + + + + | 2023-01-26 00:00 | ASCORBIC ACID | [facility] | + + + + | 2023-02-01 00:00 | ASCORBIC ACID | [facility] | + + + + | 2023-02-17 00:00 | ASCORBIC ACID | [facility] | + + + + | 2023-03-12 00:00 | ASCORBIC ACID | [facility] | + + + + | 2023-01-26 00:00 | ascorbic acid 500 MG Oral | [facility] | | | Tablet | | + + + + | 2019-11-25 00:00 | | [facility] | | | Lisinopril-hydroCHLOROthiaz | | | | rachel 20-12.5 MG Oral Tablet | | + + + + | 2020-03-09 00:00 | | [facility] | | | Lisinopril-hydroCHLOROthiaz | | | | rachel 20-12.5 MG Oral Tablet | | + + + + | 2022-06-15 00:00 | | [facility] | | | Lisinopril-hydroCHLOROthiaz | | | | rachel 20-12.5 MG Oral Tablet | | + + + + | 2022-06-29 00:00 | | [facility] | | | Lisinopril-hydroCHLOROthiaz | | | | rachel 20-12.5 MG Oral Tablet | | + + + + | 2019-05-21 00:00 | | [facility] | | | Lisinopril-hydroCHLOROthiaz | | | | rachel 20-12.5MG Oral Tablet | | + + + + | 2023-01-26 00:00 | PANTOPRAZOLE SODIUM | [facility] | + + + + | 2023-02-01 00:00 | PANTOPRAZOLE SODIUM | [facility] | + + + + | 2023-02-17 00:00 | PANTOPRAZOLE SODIUM | [facility] | + + + + | 2023-03-12 00:00 | PANTOPRAZOLE SODIUM | [facility] | + + + + | 2023-01-26 00:00 | pantoprazole 40 MG Delayed | [facility] | | | Release Oral Tablet | | | | [Protonix] | | + + + + | 2023-01-27 00:00 | Magnesium Oxide 400 MG | [facility] | | | Oral Tablet | | + + + + | 2020-03-09 00:00 | Ondansetron HCl 4 MG Oral | [facility] | | | Tablet | | + + + + | 2020-06-16 00:00 | Ondansetron HCl 4 MG Oral | [facility] | | | Tablet | | + + + + | 2019-05-21 00:00 | raNITIdine HCl 150MG Oral | [facility] | | | Tablet | | + + + + | 2023-01-26 00:00 | CHOLECALCIFEROL (VITAMIN | [facility] | | | D3) | | + + + + | 2023-02-01 00:00 | Cholecalciferol (Vitamin | [facility] | | | D3) | | + + + + | 2023-02-17 00:00 | Cholecalciferol (Vitamin | [facility] | | | D3) | | + + + + | 2023-03-12 00:00 | Cholecalciferol (Vitamin | [facility] | | | D3) | | + + + + | 2023-01-26 00:00 | cholecalciferol 0.01 MG | [facility] | | | Oral Tablet | | + + + + | 2023-01-26 00:00 | FERROUS SULFATE | [facility] | + + + + | 2023-02-01 00:00 | FERROUS SULFATE | [facility] | + + + + | 2023-02-17 00:00 | FERROUS SULFATE | [facility] | + + + + | 2023-03-12 00:00 | FERROUS SULFATE | [facility] | + + + + | 2023-02-01 00:00 | Ferrous Sulfate | [facility] | + + + + | 2023-02-17 00:00 | Ferrous Sulfate | [facility] | + + + + | 2023-03-12 00:00 | Ferrous Sulfate | [facility] | + + + + | 2023-01-26 00:00 | ferrous sulfate 325 MG | [facility] | | | Oral Tablet | | + + + + | 2023-01-26 00:00 | FUROSEMIDE | [facility] | + + + + | 2023-02-01 00:00 | FUROSEMIDE | [facility] | + + + + | 2023-02-17 00:00 | FUROSEMIDE | [facility] | + + + + | 2023-03-12 00:00 | FUROSEMIDE | [facility] | + + + + | 2019-05-21 00:00 | furosemide 20 MG Oral | [facility] | | | Tablet | | + + + + | 2019-11-25 00:00 | furosemide 20 MG Oral | [facility] | | | Tablet | | + + + + | 2020-03-09 00:00 | furosemide 20 MG Oral | [facility] | | | Tablet | | + + + + | 2023-01-26 00:00 | furosemide 20 MG Oral | [facility] | | | Tablet | | + + + + | 2023-01-26 00:00 | GABAPENTIN | [facility] | + + + + | 2019-05-14 00:00 | gabapentin 300 MG Oral | [facility] | | | Capsule | | + + + + | 2020-03-09 00:00 | gabapentin 300 MG Oral | [facility] | | | Capsule | | + + + + | 2020-06-15 00:00 | gabapentin 300 MG Oral | [facility] | | | Capsule | | + + + + | 2020-08-25 00:00 | gabapentin 300 MG Oral | [facility] | | | Capsule | | + + + + | 2023-01-26 00:00 | gabapentin 300 MG Oral | [facility] | | | Capsule | | + + + + | 2023-01-26 00:00 | SENNOSIDES | [facility] | + + + + | 2023-02-01 00:00 | SENNOSIDES | [facility] | + + + + | 2023-02-17 00:00 | SENNOSIDES | [facility] | + + + + | 2023-03-12 00:00 | SENNOSIDES | [facility] | + + + + | 2023-01-26 00:00 | sennosides, [facility] 8.6 MG | [facility] | | | Oral Tablet | | + + + + | 2023-01-26 00:00 | SPIRONOLACTONE | [facility] | + + + + | 2023-02-01 00:00 | SPIRONOLACTONE | [facility] | + + + + | 2023-02-17 00:00 | SPIRONOLACTONE | [facility] | + + + + | 2023-03-12 00:00 | SPIRONOLACTONE | [facility] | + + + + | 2022-12-26 00:00 | spironolactone 25 MG Oral | [facility] | | | Tablet | | + + + + | 2023-01-26 00:00 | spironolactone 25 MG Oral | [facility] | | | Tablet | | + + + + | 2023-02-27 00:00 | ascorbic acid 500 MG | [facility] | | | Chewable Tablet | | + + + + | 2023-01-26 00:00 | LISINOPRIL | [facility] | + + + + | 2023-02-01 00:00 | LISINOPRIL | [facility] | + + + + | 2023-02-17 00:00 | LISINOPRIL | [facility] | + + + + | 2023-03-12 00:00 | LISINOPRIL | [facility] | + + + + | 2023-01-26 00:00 | lisinopril 10 MG Oral | [facility] | | | Tablet | | + + + + | 2014-09-05 00:00 | lisinopril 20 MG Oral | [facility] | | | Tablet | | + + + + | 2023-01-26 00:00 | PANTOPRAZOLE SODIUM | [facility] | + + + + | 2023-02-01 00:00 | PANTOPRAZOLE SODIUM | [facility] | + + + + | 2023-02-17 00:00 | PANTOPRAZOLE SODIUM | [facility] | + + + + | 2023-03-12 00:00 | PANTOPRAZOLE SODIUM | [facility] | + + + + | 2019-05-21 00:00 | pantoprazole 40 MG Delayed | [facility] | | | Release Oral Tablet | | + + + + | 2023-01-26 00:00 | pantoprazole 40 MG Delayed | [facility] | | | Release Oral Tablet | | + + + + | 2023-01-26 00:00 | SUCRALFATE | [facility] | + + + + | 2023-02-01 00:00 | SUCRALFATE | [facility] | + + + + | 2023-02-17 00:00 | SUCRALFATE | [facility] | + + + + | 2023-03-12 00:00 | SUCRALFATE | [facility] | + + + + | 2023-01-26 00:00 | sucralfate 1000 MG Oral | [facility] | | | Tablet | | + + + + | 2022-06-15 00:00 | Carafate 1 GM/10ML Oral | [facility] | | | Suspension | | + + + + | 2019-05-21 00:00 | Carafate 1GM/10ML Oral | [facility] | | | Suspension | | + + + + | 2014-09-05 00:00 | Carafate 1 GM OR TABS | [facility] | | | | | + + + + | 2023-01-18 00:00 | Losartan Potassium 25 MG | [facility] | | | Oral Tablet | | + + + + | 2023-02-27 00:00 | cholecalciferol 0.01 MG | [facility] | | | Oral Capsule | | + + + + | 2023-01-18 00:00 | Albuterol Sulfate HFA 108 | [facility] | | | (90 Base) MCG/ACT | | | | Inhalation Aerosol Solution | | | | | | + + + + | 2023-02-15 00:00 | Albuterol Sulfate HFA 108 | [facility] | | | (90 Base) MCG/ACT | | | | Inhalation Aerosol Solution | | | | | | + + + + | 2023-01-18 00:00 | Senna 8.6 MG Oral Tablet | [facility] | | | | | + + + + | 2022-12-26 00:00 | Torsemide 10 MG Oral | [facility] | | | Tablet | | + + + + | 2020-03-09 00:00 | Gabapentin 300 MG Oral | [facility] | | | Capsule | | + + + + | 2020-06-15 00:00 | Gabapentin 300 MG Oral | [facility] | | | Capsule | | + + + + | 2020-08-25 00:00 | Gabapentin 300 MG Oral | [facility] | | | Capsule | | + + + + | 2019-05-14 00:00 | Gabapentin 300MG Oral | [facility] | | | Capsule | | + + + + | 2023-02-01 00:00 | Pregabalin | [facility] | + + + + | 2023-02-17 00:00 | Pregabalin | [facility] | + + + + | 2023-03-12 00:00 | Pregabalin | [facility] | + + + + | 2014-09-05 00:00 | Pramipexole | [facility] | | | Dihydrochloride 0.125 MG OR | | | | TABS | | + + + + | 2022-06-15 00:00 | Pramipexole | [facility] | | | Dihydrochloride 0.25 MG | | | | Oral Tablet | | + + + + | 2022-09-21 00:00 | amoxicillin 875 MG / | [facility] | | | clavulanate 125 MG Oral | | | | Tablet | | + + + + | 2023-01-26 00:00 | AMPHET ASP/AMPHET/D-AMPHET | [facility] | | | | | + + + + | 2023-02-01 00:00 | AMPHET ASP/AMPHET/D-AMPHET | [facility] | | | | | + + + + | 2023-02-17 00:00 | AMPHET ASP/AMPHET/D-AMPHET | [facility] | | | | | + + + + | 2023-03-12 00:00 | AMPHET ASP/AMPHET/D-AMPHET | [facility] | | | | | + + + + | 2023-01-26 00:00 | amphetamine aspartate 5 MG | [facility] | | | / amphetamine sulfate 5 MG | | | | / dext | | + + + + | 2023-01-26 00:00 | AMPHET ASP/AMPHET/D-AMPHET | [facility] | | | | | + + + + | 2023-02-01 00:00 | AMPHET ASP/AMPHET/D-AMPHET | [facility] | | | | | + + + + | 2023-02-17 00:00 | AMPHET ASP/AMPHET/D-AMPHET | [facility] | | | | | + + + + | 2023-03-12 00:00 | AMPHET ASP/AMPHET/D-AMPHET | [facility] | | | | | + + + + | 2023-01-26 00:00 | amphetamine aspartate 5 MG | [facility] | | | / amphetamine sulfate 5 MG | | | | / dext | | + + + + | 2014-09-05 00:00 | Pantoprazole Sodium 20 MG | [facility] | | | OR [facility] | | + + + + | 2019-05-21 00:00 | Pantoprazole Sodium 40MG | [facility] | | | Oral Tablet Delayed Release | | | | | | + + + + | 2019-05-14 00:00 | nystatin 100 UNT/MG | [facility] | | | Topical Powder | | + + + + | 2022-09-21 00:00 | dilTIAZem HCl 120 MG Oral | [facility] | | | Tablet | | + + + + | 2023-01-18 00:00 | dilTIAZem HCl 120 MG Oral | [facility] | | | Tablet | | + + + + | 2014-09-05 00:00 | Adderall 12.5 MG OR TABS | [facility] | | | | | + + + + | 2014-09-05 00:00 | amphetamine aspartate 3.125 | [facility] | | | MG / amphetamine sulfate | | | | 3.125 MG / | | | | dextroamphetamine | | | | saccharate 3.125 MG / | | | | dextroamphetamine sulfate | | | | 3.125 MG Oral Tablet | | | | [Adderall] | | + + + + | 2023-02-01 00:00 | Metoprolol Succinate ER 25 | [facility] | | | MG Oral Tablet Extended | | | | Release 24 Hour | | + + + + | 2023-03-01 00:00 | Metoprolol Succinate ER 25 | [facility] | | | MG Oral Tablet Extended | | | | Release 24 Hour | | + + + + | 2023-01-18 00:00 | Metoprolol Succinate ER 50 | [facility] | | | MG Oral Tablet Extended | | | | Release 24 Hour | | + + + + | 2023-01-18 00:00 | Metoprolol Succinate ER | [facility] | | | 100 MG Oral Tablet Extended | | | | Release 24 Hour | | + + + + | 2019-11-25 00:00 | [id number] 200 ACTUAT | [facility] | | | albuterol 0.09 MG/ACTUAT | | | | Metered Dose Inhaler | | | | [ProAir] | | + + + + | 2020-03-09 00:00 | [id number] 200 ACTUAT | [facility] | | | albuterol 0.09 MG/ACTUAT | | | | Metered Dose Inhaler | | | | [ProAir] | | + + + + | 2022-09-21 00:00 | Amoxicillin-Pot | [facility] | | | Clavulanate 875-125 MG Oral | | | | Tablet | | + + + + | 2019-11-25 00:00 | HYDROcodone-Acetaminophen | [facility] | | | 5-325 MG Oral Tablet | | + + + + | 2023-01-18 00:00 | [id number] 60 ACTUAT | [facility] | | | albuterol 0.09 MG/ACTUAT | | | | Metered Dose Inhaler | | + + + + | 2023-02-15 00:00 | [id number] 60 ACTUAT | [facility] | | | albuterol 0.09 MG/ACTUAT | | | | Metered Dose Inhaler | | + + + + | 2023-02-17 00:00 | CYCLOBENZAPRINE HCL | [facility] | + + + + | 2023-01-26 00:00 | DILTIAZEM HCL | [facility] | + + + + | 2023-02-01 00:00 | DILTIAZEM HCL | [facility] | + + + + | 2023-02-17 00:00 | DILTIAZEM HCL | [facility] | + + + + | 2023-03-12 00:00 | DILTIAZEM HCL | [facility] | + + + + | 2022-09-21 00:00 | diltiazem hydrochloride | [facility] | | | 120 MG Oral Tablet | | + + + + | 2023-01-18 00:00 | diltiazem hydrochloride | [facility] | | | 120 MG Oral Tablet | | + + + + | 2023-01-26 00:00 | diltiazem hydrochloride | [facility] | | | 120 MG Oral Tablet | | + + + + | 2023-02-27 00:00 | buPROPion HCl ER (XL) 300 | [facility] | | | MG Oral Tablet Extended | | | | Release 24 Hour | | + + + + | 2019-11-25 00:00 | sulfamethoxazole 800 MG / | [facility] | | | trimethoprim 160 MG Oral | | | | Tablet [Bactrim] | | + + + + | 2016-04-09 00:00 | HYDROCODONE | [facility] | | | BIT/ACETAMINOPHEN | | + + + + | 2016-04-09 00:00 | HYDROCODONE | [facility] | | | BIT/ACETAMINOPHEN | | + + + + | 2022-06-15 00:00 | acetaminophen 21.7 MG/ML / | [facility] | | | hydrocodone bitartrate 0.5 | | | | MG/ML Oral Solution | | + + + + | 2016-04-09 00:00 | acetaminophen 21.7 MG/ML / | [facility] | | | hydrocodone bitartrate 0.5 | | | | MG/ML | | + + + + | 2023-02-01 00:00 | HYDROCODONE | [facility] | | | BIT/ACETAMINOPHEN | | + + + + | 2023-02-17 00:00 | HYDROCODONE | [facility] | | | BIT/ACETAMINOPHEN | | + + + + | 2023-03-12 00:00 | HYDROCODONE | [facility] | | | BIT/ACETAMINOPHEN | | + + + + | 2019-11-25 00:00 | acetaminophen 325 MG / | [facility] | | | hydrocodone bitartrate 5 MG | | | | Oral Tablet | | + + + + | 2013-06-12 00:00 | HYDROCODONE | [facility] | | | BIT/ACETAMINOPHEN | | + + + + | 2013-06-12 00:00 | HYDROCODONE | [facility] | | | BIT/ACETAMINOPHEN | | + + + + | 2014-06-20 00:00 | HYDROCODONE | [facility] | | | BIT/ACETAMINOPHEN | | + + + + | 2014-06-20 00:00 | HYDROCODONE | [facility] | | | BIT/ACETAMINOPHEN | | + + + + | 2016-02-09 00:00 | HYDROCODONE | [facility] | | | BIT/ACETAMINOPHEN | | + + + + | 2016-02-09 00:00 | HYDROCODONE | [facility] | | | BIT/ACETAMINOPHEN | | + + + + | 2016-06-23 00:00 | HYDROCODONE | [facility] | | | BIT/ACETAMINOPHEN | | + + + + | 2016-06-23 00:00 | HYDROCODONE | [facility] | | | BIT/ACETAMINOPHEN | | + + + + | 2013-06-12 00:00 | acetaminophen 325 MG / | [facility] | | | hydrocodone bitartrate 5 MG | | | | Oral Tabl | | + + + + | 2014-06-20 00:00 | acetaminophen 325 MG / | [facility] | | | hydrocodone bitartrate 5 MG | | | | Oral Tabl | | + + + + | 2016-02-09 00:00 | acetaminophen 325 MG / | [facility] | | | hydrocodone bitartrate 5 MG | | | | Oral Tabl | | + + + + | 2016-06-23 00:00 | acetaminophen 325 MG / | [facility] | | | hydrocodone bitartrate 5 MG | | | | Oral Tabl | | + + + + | 2023-01-26 00:00 | HYDROCODONE | [facility] | | | BIT/ACETAMINOPHEN | | + + + + | 2023-01-26 00:00 | acetaminophen 325 MG / | [facility] | | | hydrocodone bitartrate 7.5 | | | | MG Oral Ta | | + + + + | 2023-01-26 00:00 | HYDROCODONE | [facility] | | | BIT/ACETAMINOPHEN | | + + + + | 2023-02-01 00:00 | HYDROCODONE | [facility] | | | BIT/ACETAMINOPHEN | | + + + + | 2023-02-17 00:00 | HYDROCODONE | [facility] | | | BIT/ACETAMINOPHEN | | + + + + | 2023-03-12 00:00 | HYDROCODONE | [facility] | | | BIT/ACETAMINOPHEN | | + + + + | 2023-01-26 00:00 | acetaminophen 325 MG / | [facility] | | | hydrocodone bitartrate 7.5 | | | | MG Oral Ta | | + + + + | 2014-09-05 00:00 | pramipexole | [facility] | | | dihydrochloride 0.125 MG | | | | Oral Tablet | | + + + + | 2022-06-15 00:00 | pramipexole | [facility] | | | dihydrochloride 0.25 MG | | | | Oral Tablet | | + + + + | 2023-01-26 00:00 | PRAMIPEXOLE DI-HCL | [facility] | + + + + | 2023-02-01 00:00 | PRAMIPEXOLE DI-HCL | [facility] | + + + + | 2023-02-17 00:00 | PRAMIPEXOLE DI-HCL | [facility] | + + + + | 2023-03-12 00:00 | PRAMIPEXOLE DI-HCL | [facility] | + + + + | 2023-01-26 00:00 | pramipexole | [facility] | | | dihydrochloride 0.5 MG Oral | | | | Tablet [Mirapex] | | + + + + | 2023-02-01 00:00 | ALBUTEROL SULFATE | [facility] | + + + + | 2023-02-17 00:00 | ALBUTEROL SULFATE | [facility] | + + + + | 2023-03-12 00:00 | ALBUTEROL SULFATE | [facility] | + + + + | 2022-06-15 00:00 | HYDROcodone-Acetaminophen | [facility] | | | 7.5-325 MG/15ML Oral | | | | Solution | | + + + + | 2023-01-26 00:00 | 24 HR metoprolol succinate | [facility] | | | 100 MG Extended Release | | | | Oral Tabl | | + + + + | 2023-01-18 00:00 | 24 HR metoprolol succinate | [facility] | | | 100 MG Extended Release | | | | Oral Tablet | | + + + + | 2023-01-26 00:00 | METOPROLOL SUCCINATE | [facility] | + + + + | 2023-02-01 00:00 | METOPROLOL SUCCINATE | [facility] | + + + + | 2023-02-17 00:00 | METOPROLOL SUCCINATE | [facility] | + + + + | 2023-03-12 00:00 | METOPROLOL SUCCINATE | [facility] | + + + + | 2023-02-01 00:00 | 24 HR metoprolol succinate | [facility] | | | 25 MG Extended Release | | | | Oral Tablet | | + + + + | 2023-03-01 00:00 | 24 HR metoprolol succinate | [facility] | | | 25 MG Extended Release | | | | Oral Tablet | | + + + + | 2023-02-01 00:00 | METOPROLOL SUCCINATE | [facility] | + + + + | 2023-01-18 00:00 | 24 HR metoprolol succinate | [facility] | | | 50 MG Extended Release | | | | Oral Tablet | | + + + + | 2023-02-01 00:00 | METOPROLOL SUCCINATE | [facility] | + + + + | 2023-02-17 00:00 | METOPROLOL SUCCINATE | [facility] | + + + + | 2023-03-12 00:00 | METOPROLOL SUCCINATE | [facility] | + + + + | 2023-01-26 00:00 | METOPROLOL TARTRATE | [facility] | + + + + | 2023-02-01 00:00 | METOPROLOL TARTRATE | [facility] | + + + + | 2023-02-17 00:00 | METOPROLOL TARTRATE | [facility] | + + + + | 2023-03-12 00:00 | METOPROLOL TARTRATE | [facility] | + + + + | 2023-01-26 00:00 | metoprolol tartrate 25 MG | [facility] | | | Oral Tablet | | + + + + | 2016-08-11 00:00 | ONDANSETRON | [facility] | + + + + | 2016-08-11 00:00 | ONDANSETRON | [facility] | + + + + | 2016-08-11 00:00 | ondansetron 4 MG | [facility] | | | Disintegrating Oral Tablet | | | | [Zofran] | | + + + + | 2019-05-14 00:00 | Nystatin [id number]/GM | [facility] | | | External Powder | | + + + + | 2019-11-25 00:00 | Furosemide 20 MG Oral | [facility] | | | Tablet | | + + + + | 2020-03-09 00:00 | Furosemide 20 MG Oral | [facility] | | | Tablet | | + + + + | 2019-05-21 00:00 | Furosemide 20MG Oral | [facility] | | | Tablet | | + + + + | 2023-01-26 00:00 | HYDROMORPHONE HCL | [facility] | + + + + | 2023-02-01 00:00 | HYDROMORPHONE HCL | [facility] | + + + + | 2023-02-17 00:00 | HYDROMORPHONE HCL | [facility] | + + + + | 2023-03-12 00:00 | HYDROMORPHONE HCL | [facility] | + + + + | 2023-01-26 00:00 | hydromorphone | [facility] | | | hydrochloride 4 MG Oral | | | | Tablet [Dilaudid] | | + + + + | 2023-01-26 00:00 | LOSARTAN POTASSIUM | [facility] | + + + + | 2023-02-01 00:00 | LOSARTAN POTASSIUM | [facility] | + + + + | 2023-02-17 00:00 | LOSARTAN POTASSIUM | [facility] | + + + + | 2023-03-12 00:00 | LOSARTAN POTASSIUM | [facility] | + + + + | 2023-01-18 00:00 | losartan potassium 25 MG | [facility] | | | Oral Tablet | | + + + + | 2023-01-26 00:00 | losartan potassium 25 MG | [facility] | | | Oral Tablet | | + + + + | 2023-01-26 00:00 | 24 HR bupropion | [facility] | | | hydrochloride 150 MG | | | | Extended Release Oral T | | + + + + | 2023-01-26 00:00 | BUPROPION HCL | [facility] | + + + + | 2023-02-27 00:00 | 24 HR bupropion | [facility] | | | hydrochloride 300 MG | | | | Extended Release Oral | | | | Tablet | | + + + + | 2023-02-01 00:00 | buPROPion HCL | [facility] | + + + + | 2023-02-17 00:00 | buPROPion HCL | [facility] | + + + + | 2023-03-12 00:00 | buPROPion HCL | [facility] | + + + + | 2023-01-23 00:00 | Pregabalin 75MG Oral | [facility] | | | Capsule Extended Release | | + + + + | 2019-11-25 00:00 | | [facility] | | | Sulfamethoxazole-Trimethopr | | | | im 800-160 Oral Tablet | | + + + + | 2022-06-15 00:00 | Vitamin D2 50,000 IU | [facility] | | | Mouth/Throat Capsule | | + + + + | 2022-06-15 00:00 | Omeprazole 40mg Oral | [facility] | | | Capsule | | + + + + | 2023-01-23 00:00 | Omeprazole 40mg Oral | [facility] | | | Capsule | | + + + + | 2022-06-15 00:00 | Flonase Nasal Suspension | [facility] | | | | | + + + + | 2020-06-15 00:00 | Albuterol Sulfate HFA 108 | [facility] | | | (90)mcg/act Inhalation | | | | Inhaler | | + + + + | 2022-06-15 00:00 | buPROPion 150 mg Oral | [facility] | | | Tablet Extended Release 24 | | | | Hour | | + + + + | 2023-01-23 00:00 | buPROPion 150 mg Oral | [facility] | | | Tablet Extended Release 24 | | | | Hour | | + + + + | 2023-02-27 00:00 | buPROPion 150 mg Oral | [facility] | | | Tablet Extended Release 24 | | | | Hour | | + + + + Problems + + + + | date | description | facility | + + + + | 2014-06-08 00:00 | Transient cerebral | [facility] | | | ischemia | | + + + + | 2014-06-08 00:00 | Transient cerebral | [facility] | | | ischemia | | + + + + | 2014-06-08 00:00 | Transient cerebral | [facility] | | | ischemia | | + + + + | 2014-06-20 00:00 | Abdominal pain | [facility] | + + + + | 2014-06-20 00:00 | Ulcerative lesion | [facility] | + + + + | 2014-06-20 00:00 | Ulcerative lesion | [facility] | + + + + | 2014-06-20 00:00 | Ulcerative lesion | [facility] | + + + + | 2014-06-20 00:00 | Abdominal pain | [facility] | + + + + | 2014-06-20 00:00 | Abdominal pain | [facility] | + + + + | 2014-07-26 00:00 | Gastrointestinal | [facility] | | | hemorrhage | | + + + + | 2014-07-26 00:00 | Gastrointestinal | [facility] | | | hemorrhage | | + + + + | 2014-07-26 00:00 | Gastrointestinal | [facility] | | | hemorrhage | | + + + + | 2014-09-16 00:00 | Pain | [facility] | + + + + | 2014-09-16 00:00 | Pain | [facility] | + + + + | 2014-09-16 00:00 | Pain | [facility] | + + + + | 2014-09-19 00:00 | Chronic abdominal pain | [facility] | + + + + | 2014-09-19 00:00 | Chronic abdominal pain | [facility] | + + + + | 2014-09-19 00:00 | Chronic abdominal pain | [facility] | + + + + | 2014-10-09 00:00 | Peptic ulcer | [facility] | + + + + | 2014-10-09 00:00 | Peptic ulcer | [facility] | + + + + | 2014-10-09 00:00 | Peptic ulcer | [facility] | + + + + | 2014-11-02 00:00 | Acute low back pain | [facility] | + + + + | 2014-11-02 00:00 | Acute low back pain | [facility] | + + + + | 2014-11-02 00:00 | Acute low back pain | [facility] | + + + + | 2014-11-03 00:00 | Injury of back | [facility] | + + + + | 2014-11-03 00:00 | Injury of back | [facility] | + + + + | 2014-11-03 00:00 | Injury of back | [facility] | + + + + | 2014-11-04 00:00 | Back pain | [facility] | + + + + | 2014-11-04 00:00 | Back pain | [facility] | + + + + | 2014-11-04 00:00 | Back pain | [facility] | + + + + | 2016-02-09 00:00 | Chest pain of uncertain | [facility] | | | etiology | | + + + + | 2016-02-09 00:00 | Epigastric pain | [facility] | + + + + | 2016-02-09 00:00 | Chest pain of uncertain | [facility] | | | etiology | | + + + + | 2016-02-09 00:00 | Chest pain of uncertain | [facility] | | | etiology | | + + + + | 2016-02-09 00:00 | Epigastric pain | [facility] | + + + + | 2016-02-09 00:00 | Epigastric pain | [facility] | + + + + | 2016-04-01 00:00 | Status post gastric bypass | [facility] | | | for obesity | | + + + + | 2016-04-01 00:00 | Chronic anemia | [facility] | + + + + | 2016-04-01 00:00 | Restless leg syndrome | [facility] | + + + + | 2016-04-01 00:00 | Type 2 diabetes mellitus | [facility] | + + + + | 2016-04-01 00:00 | Essential hypertension | [facility] | + + + + | 2016-04-01 00:00 | Cerebrovascular disease | [facility] | + + + + | 2016-04-01 00:00 | Amphetamine abuse | [facility] | + + + + | 2016-04-01 00:00 | Chronic anemia | [facility] | + + + + | 2016-04-01 00:00 | Chronic anemia | [facility] | + + + + | 2016-04-01 00:00 | Type 2 diabetes mellitus | [facility] | + + + + | 2016-04-01 00:00 | Type 2 diabetes mellitus | [facility] | + + + + | 2016-04-01 00:00 | Amphetamine abuse | [facility] | + + + + | 2016-04-01 00:00 | Amphetamine abuse | [facility] | + + + + | 2016-04-01 00:00 | Restless legs syndrome | [facility] | + + + + | 2016-04-01 00:00 | Restless legs syndrome | [facility] | + + + + | 2016-04-01 00:00 | Essential hypertension | [facility] | + + + + | 2016-04-01 00:00 | Essential hypertension | [facility] | + + + + | 2016-04-01 00:00 | Cerebrovascular disease | [facility] | + + + + | 2016-04-01 00:00 | Cerebrovascular disease | [facility] | + + + + | 2016-04-01 00:00 | Status post gastric bypass | [facility] | | | for obesity | | + + + + | 2016-04-01 00:00 | Status post gastric bypass | [facility] | | | for obesity | | + + + + | 2016 00:00 | Acute peptic ulcer with | [facility] | | | hemorrhage | | + + + + | 2016 00:00 | Acute peptic ulcer with | [facility] | | | hemorrhage | | + + + + | 2016 00:00 | Acute peptic ulcer with | [facility] | | | hemorrhage | | + + + + | 2016-04-22 00:00 | Chest pain | [facility] | + + + + | 2016-04-22 00:00 | Chest pain | [facility] | + + + + | 2016-04-22 00:00 | Chest pain | [facility] | + + + + | 2016-05-17 00:00 | Gastritis | [facility] | + + + + | 2016-05-17 00:00 | Gastritis | [facility] | + + + + | 2016-05-17 00:00 | Gastritis | [facility] | + + + + | 2016-08-11 00:00 | Abdominal pain | [facility] | + + + + | 2016-08-11 00:00 | Gastric ulcer | [facility] | + + + + | 2016-08-11 00:00 | Gastric ulcer | [facility] | + + + + | 2016-08-11 00:00 | Gastric ulcer | [facility] | + + + + | 2016-08-11 00:00 | Abdominal pain | [facility] | + + + + | 2016-08-11 00:00 | Abdominal pain | [facility] | + + + + | 2017-01-04 00:00 | Esophageal obstruction due | [facility] | | | to food impaction | | + + + + | 2017-01-04 00:00 | Obstruction of esophagus | [facility] | | | due to food impaction | | + + + + | 2017-01-04 00:00 | Obstruction of esophagus | [facility] | | | due to food impaction | | + + + + | 2019-05-15 00:00 | Urinary incontinence | [facility] | | | (finding) | | + + + + | 2019-05-15 00:00 | Lupus anticoagulant | [facility] | | | disorder (disorder) | | + + + + | 2019-05-15 00:00 | HYPERCOAGULABLE STATE | [facility] | | | | | + + + + | 2019-05-15 00:00 | Neuropathy | Kevni [facility]. | | | | | + + + + | 2019-05-15 00:00 | Neuropathy (disorder) | Kevin [facility]. | | | | | + + + + | 2019-05-15 00:00 | DISEASE, CEREBROVASCULAR, | Kevin BRITO. | | | UNSPECIFIED | | + + + + | 2019-05-15 00:00 | CHRONIC KIDNEY DISEASE, | [facility]. | | | UNSPECIFIED | | + + + + | 2019-05-15 00:00 | Hypercoagulability state | Kevin BRITO. | | | (finding) | | + + + + | 2019-05-15 00:00 | INCONTINENCE W/O SENSORY | Kevin BRITO. | | | AWARENESS | | + + + + | 2019-05-15 00:00 | Kidney disease (disorder) | [facility]. | | | | | + + + + | 2019-05-15 00:00 | Lupus Inhibitor with | Kevin BRITO. | | | Hypercoagulable State | | + + + + | 2019-05-15 00:00 | Stroke/cerebrovascular | [facility] | | | Accident | | + + + + | 2019-05-15 00:00 | Renal Disorders | [facility] | | | | | + + + + | 2019-05-15 00:00 | Urinary Incontinence | [facility] | | | | | + + + + | 2022-06-15 00:00 | Hypertensive disorder, | [facility] | | | systemic arterial | | | | (disorder) | | + + + + | 2022-06-15 00:00 | HTN BENIGN | [facility] | | | | | + + + + | 2022-06-15 00:00 | Hypertension Systemic | Z[facility] | | | | | + + + + | 2022-09-21 00:00 | ABUSE,AMPHETAMINE | Kevin BRITO. | | | UNSPECIFIED | | + + + + | 2022-09-21 00:00 | FIBRILLATION ATRIAL | Zachery [facility] | | | | | + + + + | 2022-09-21 00:00 | Atrial fibrillation | Kevin BRITO. | | | (disorder) | | + + + + | 2022-09-21 00:00 | Methamphetamine abuse | Kevin BRITO. | | | (disorder) | | + + + + | 2022-09-21 00:00 | Methamphetamine Abuse | Kevin BRITO. | | | | | + + + + | 2022-09-21 00:00 | Atrial Fibrillation | Kevin [facility]O. | | | | | + + + + | 2023-01-23 00:00 | DEPRESSION | [facility] | | | | | + + + + | 2023-01-23 00:00 | Depressive disorder | [facility] | | | (disorder) | | + + + + | 2023-01-23 00:00 | Depression | [facility] | | | | | + + + + | 2023-01-26 00:00 | CHF (congestive heart | [facility] | | | failure) | | + + + + | 2023-01-26 00:00 | Congestive heart failure | [facility] | + + + + | 2023-01-26 00:00 | Congestive heart failure | 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 | + + + + | 2023-01-30 00:00 | Bradycardia | [facility] | + + + + | 2023-01-30 00:00 | Side effect of medication | [facility] | + + + + | 2023-01-30 16:44 | ACIDOSIS, UNSPECIFIED | [facility] | + + + + | 2023-01-30 16:44 | OTHER STIMULANT ABUSE, | [facility] | | | UNCOMPLICATED | | + + + + | 2023-01-30 16:44 | POLYNEUROPATHY, | [facility] | | | UNSPECIFIED | | + + + + | 2023-01-30 16:44 | CHRONIC PAIN SYNDROME | [facility] | + + + + | 2023-01-30 16:44 | HYP HRT CHR KDNY DIS W HRT | [facility] | | | FAIL AND STG 1-4/UNSP | | + + + + | 2023-01-30 16:44 | CHRONIC ATRIAL | [facility] | | | FIBRILLATION, UNSPECIFIED | | + + + + | 2023-01-30 16:44 | CHRONIC SYSTOLIC | [facility] | | | (CONGESTIVE) HEART FAILURE | | + + + + | 2023-01-30 16:44 | HYPOTENSION, UNSPECIFIED | [facility] | + + + + | 2023-01-30 16:44 | CHRONIC OBSTRUCTIVE | [facility] | | | PULMONARY DISEASE, | | | | UNSPECIFIED | | + + + + | 2023-01-30 16:44 | PEPTIC ULC, SITE UNSP, | [facility] | | | UNSP AC OR CHR, W/O HEMO | | | | | | + + + + | 2023-01-30 16:44 | ACUTE KIDNEY FAILURE, | [facility] | | | UNSPECIFIED | | + + + + | 2023-01-30 16:44 | PREDIABETES | [facility] | + + + + | 2023-01-30 16:44 | PERSONAL HISTORY OF | [facility] | | | PULMONARY EMBOLISM | | + + + + | 2023-01-30 16:44 | ALLERGY STATUS TO OTH | [facility] | | | DRUG/MEDS/BIOL SUBST STATUS | | | | | | + + + + | 2023-01-30 16:44 | BARIATRIC SURGERY STATUS | [facility] | + + + + | 2023-02-15 00:00 | Medication overdose | [facility] | + + + + | 2023-02-15 11:26 | TYPE 2 DIABETES MELLITUS W | [facility] | | | DIABETIC CHRONIC KIDNEY | | + + + + | 2023-02-15 11:26 | 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 | | + + + + | 2023-02-15 11:26 | HYPERKALEMIA | [facility] | + + + + | 2023-02-15 11:26 | MAJOR DEPRESSIVE DISORDER, | [facility] | | | RECURRENT, IN REMISSION | | + + + + | 2023-02-15 11:26 | CHRONIC PAIN SYNDROME | [facility] | + + + + | 2023-02-15 11:26 | OTHER SPECIFIED DISORDERS | [facility] | | | OF BRAIN | | + + + + | 2023-02-15 11:26 | HYP HRT CHR KDNY DIS W HRT | [facility] | | | FAIL AND STG 1-4/UNSP | | + + + + | 2023-02-15 11:26 | OTHER PERSISTENT ATRIAL | [facility] | | | FIBRILLATION | | + + + + | 2023-02-15 11:26 | CHRONIC SYSTOLIC | [facility] | | | (CONGESTIVE) HEART FAILURE | | + + + + | 2023-02-15 11:26 | HYPOTENSION, UNSPECIFIED | [facility] | + + + + | 2023-02-15 11:26 | CHRONIC OBSTRUCTIVE | [facility] | | | PULMONARY DISEASE, | | | | UNSPECIFIED | | + + + + | 2023-02-15 11:26 | ACUTE KIDNEY FAILURE, | [facility] | | | UNSPECIFIED | | + + + + | 2023-02-15 11:26 | UNSPECIFIED ABDOMINAL PAIN | [facility] | | | | | + + + + | 2023-02-15 11:26 | OTHER ABNORMALITIES OF | [facility] | | | GAIT AND MOBILITY | | + + + + | 2023-02-15 11:26 | Dizziness and giddiness | [facility] | + + + + | 2023-02-15 11:26 | POISONING BY | [facility] | | | BETA-ADRENOCPT ANTAGONISTS, | | | | ACCIDENTAL, INIT | | + + + + | 2023-02-15 11:26 | RESIDENTIAL (CURRENT) USE OF | [facility] | | | ANTICOAGULANTS | | + + + + | 2023-02-15 11:26 | 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 | + + + + | 2023-03-12 00:00 | Acute kidney injury | [facility] | + + + + | 2023-03-12 09:16 | TYPE 2 DIABETES MELLITUS | [facility] | | | WITHOUT COMPLICATIONS | | + + + + | 2023-03-12 09:16 | DEHYDRATION | [facility] | + + + + | 2023-03-12 09:16 | HEART FAILURE, UNSPECIFIED | [facility] | | | | | + + + + | 2023-03-12 09:16 | CHRONIC OBSTRUCTIVE | [facility] | | | PULMONARY DISEASE, | | | | UNSPECIFIED | | + + + + | 2023-03-12 09:16 | ACUTE KIDNEY FAILURE, | [facility] | | | UNSPECIFIED | | + + + + | 2023-03-12 09:16 | Dizziness and giddiness | [facility] | + + + + | 2023-03-12 09:16 | OTHER RESIDENTIAL (CURRENT) | [facility] | | | DRUG THERAPY | | + + + + | 2023-03-12 09:16 | ALLERGY STATUS TO NARCOTIC | [facility] | | | AGENT STATUS | | + + + + | 2023-03-27 00:00 | Congestive heart failure | [facility] | | | (disorder) | | + + + + | 2023-03-27 00:00 | HEART FAILURE CONGESTIVE | [facility] | | | | | + + + + | 2023-03-27 00:00 | Congestive Heart Failure | [facility] | | | | | + + + + Procedures + + + + | date | description | facility | + + + + | 2023-01-05 00:00 | Controlling Blood | [facility] | | | Pressure; Most recent | | | | Systolic <130mm Hg | | + + + + | 2023-01-05 00:00 | Controlling BP; Most | [facility] | | | recent Diastolic BP < 80mm | | | | Hg | | + + + + | 2023-01-05 00:00 | Cerumen Impaction; | [facility] | | | Requiring Instrumentation; | | | | Unil/Bilateral | | + + + + | 2023-01-05 00:00 | Cerumen Impaction; | [facility] | | | Requiring Instrumentation; | | | | unilateral | | + + + + | 2022-09-21 00:00 | ECG; Routine at Least 12 | [facility] | | | Leads; Interpretation & | | | | Report | | + + + + Results/Labs +--------+--------+ + +---------+--------+ + | test | date | author | facility | value | unit | | | | | | | | | interpreta | | | | | | | | tion | +--------+--------+ + +---------+--------+ + + + | Result panel 1 | + + + + + + +---------+ + + | (unknown) | (no date) | (unknown) | [facility] | (no | (units | (unknown) | | | | | [facility] | value) | unknown) | | | | | | [facility] | | | | | | | | [facility] | | | | + + + + +---------+ + + + + | Result panel 2 | + + + + + + +---------+ + + | (unknown) | (no date) | (unknown) | [facility] | (no | (units | (unknown) | | | | | MEDICAL | value) | unknown) | | | | | | [facility] | | | | | | | | [facility] | | | | + + + + +---------+ + + + + | Result panel 3 | + + + + + + +---------+ + + | (unknown) | (no date) | (unknown) | [facility] | (no | (units | (unknown) | | | | | MEDICAL | value) | unknown) | | | | | | [facility], | | | | | | | | [facility] | | | | + + + + +---------+ + + + + | Result panel 4 | + + + + + + +---------+ + + | (unknown) | (no date) | (unknown) | [facility] | (no | (units | (unknown) | | | | | MEDICAL | value) | unknown) | | | | | | [facility], | | | | | | | | [facility] | | | | + + + + +---------+ + + + + | Result panel 5 | + + + + + + +---------+ + + | (unknown) | (no date) | (unknown) | [facility] | (no | (units | (unknown) | | | | | MEDICAL | value) | unknown) | | | | | | [facility], | | | | | | | | [facility] | | | | + + + + +---------+ + + + + | Result panel 6 | + + + + + + +---------+ + + | (unknown) | (no date) | (unknown) | [facility] | (no | (units | (unknown) | | | | | MEDICAL | value) | unknown) | | | | | | [facility], | | | | | | | | [facility] | | | | + + + + +---------+ + + + + | Result panel 7 | + + + + + + +---------+ + + | (unknown) | (no date) | (unknown) | [facility] | (no | (units | (unknown) | | | | | MEDICAL | value) | unknown) | | | | | | [facility], | | | | | | | | [facility] | | | | + + + + +---------+ + + + + | Result panel 8 | + + + + + + +---------+ + + | (unknown) | (no date) | (unknown) | [facility] | (no | (units | (unknown) | | | | | MEDICAL | value) | unknown) | | | | | | [facility], | | | | | | | | [facility] | | | | + + + + +---------+ + + + + | Result panel 9 | + + + + + + +---------+ + + | (unknown) | (no date) | (unknown) | [facility] | (no | (units | (unknown) | | | | | MEDICAL | value) | unknown) | | | | | | [facility], | | | | | | | | [facility] | | | | + + + + +---------+ + + + + | Result panel 10 | + + + + + + +---------+ + + | (unknown) | (no date) | (unknown) | [facility] | (no | (units | (unknown) | | | | | MEDICAL | value) | unknown) | | | | | | [facility], | | | | | | | | [facility] | | | | + + + + +---------+ + + + + | Result panel 11 | + + + + + + +---------+ + + | (unknown) | (no date) | (unknown) | [facility] | (no | (units | (unknown) | | | | | MEDICAL | value) | unknown) | | | | | | GROUP, | | | | | | | | [facility] | | | | + + + + +---------+ + + + + | Result panel 12 | + + + + + + +---------+ + + | (unknown) | (no date) | (unknown) | [facility] | (no | (units | (unknown) | | | | | MEDICAL | value) | unknown) | | | | | | [facility], | | | | | | | | [facility] | | | | + + + + +---------+ + + + + | Result panel 13 | + + + + + + +---------+ + + | (unknown) | (no date) | (unknown) | [facility] | (no | (units | (unknown) | | | | | MEDICAL | value) | unknown) | | | | | | GROUP, | | | | | | | | [facility] | | | | + + + + +---------+ + + + + | Result panel 14 | + + + + + + +---------+ + + | (unknown) | (no date) | (unknown) | [facility] | (no | (units | (unknown) | | | | | MEDICAL | value) | unknown) | | | | | | [facility], | | | | | | | | [facility] | | | | + + + + +---------+ + + + + | Result panel 15 | + + + + + + +---------+ + + | (unknown) | (no date) | (unknown) | [facility] | (no | (units | (unknown) | | | | | MEDICAL | value) | unknown) | | | | | | GROUP, | | | | | | | | [facility] | | | | + + + + +---------+ + + + + | Result panel 16 | + + + + + + +---------+ + + | (unknown) | (no date) | (unknown) | [facility] | (no | (units | (unknown) | | | | | MEDICAL | value) | unknown) | | | | | | [facility], | | | | | | | | [facility] | | | | + + + + +---------+ + + + + | Result panel 17 | + + + + + + +---------+ + + | (unknown) | (no date) | (unknown) | [facility] | (no | (units | (unknown) | | | | | MEDICAL | value) | unknown) | | | | | | [facility], | | | | | | | | [facility] | | | | + + + + +---------+ + + + + | Result panel 18 | + + + + + + +---------+ + + | (unknown) | (no date) | (unknown) | [facility] | (no | (units | (unknown) | | | | | MEDICAL | value) | unknown) | | | | | | GROUP, | | | | | | | | [facility] | | | | + + + + +---------+ + + + + | Result panel 19 | + + + + + + +---------+ + + | (unknown) | (no date) | (unknown) | [facility] | (no | (units | (unknown) | | | | | MEDICAL | value) | unknown) | | | | | | GROUP, | | | | | | | | [facility] | | | | + + + + +---------+ + + + + | Result panel 20 | + + + + + + +---------+ + + | (unknown) | (no date) | (unknown) | [facility] | (no | (units | (unknown) | | | | | MEDICAL | value) | unknown) | | | | | | GROUP, | | | | | | | | [facility] | | | | + + + + +---------+ + + + + | Result panel 21 | + + + + + + +---------+ + + | (unknown) | (no date) | (unknown) | [facility] | (no | (units | (unknown) | | | | | MEDICAL | value) | unknown) | | | | | | GROUP, | | | | | | | | [facility] | | | | + + + + +---------+ + + + + | Result panel 22 | + + + + + + +---------+ + + | (unknown) | (no date) | (unknown) | [facility] | (no | (units | (unknown) | | | | | MEDICAL | value) | unknown) | | | | | | [facility], | | | | | | | | [facility] | | | | + + + + +---------+ + + + + | Result panel 23 | + + + + + + +---------+ + + | (unknown) | (no date) | (unknown) | [facility] | (no | (units | (unknown) | | | | | MEDICAL | value) | unknown) | | | | | | GROUP, | | | | | | | | [facility] | | | | + + + + +---------+ + + + + | Result panel 24 | + + + + + + +---------+ + + | (unknown) | (no date) | (unknown) | [facility] | (no | (units | (unknown) | | | | | MEDICAL | value) | unknown) | | | | | | [facility], | | | | | | | | [facility] | | | | + + + + +---------+ + + + + | Result panel 25 | + + + + + + +---------+ + + | (unknown) | (no date) | (unknown) | [facility] | (no | (units | (unknown) | | | | | MEDICAL | value) | unknown) | | | | | | [facility], | | | | | | | | [facility] | | | | + + + + +---------+ + + + + | Result panel 26 | + + + + + + +---------+ + + | (unknown) | (no date) | (unknown) | [facility] | (no | (units | (unknown) | | | | | MEDICAL | value) | unknown) | | | | | | [facility], | | | | | | | | [facility] | | | | + + + + +---------+ + + + + | Result panel 27 | + + + + + + +---------+ + + | (unknown) | (no date) | (unknown) | [facility] | (no | (units | (unknown) | | | | | MEDICAL | value) | unknown) | | | | | | [facility], | | | | | | | | [facility] | | | | + + + + +---------+ + + + + | Result panel 28 | + + + + + + +---------+ + + | (unknown) | (no date) | (unknown) | [facility] | (no | (units | (unknown) | | | | | MEDICAL | value) | unknown) | | | | | | [facility], | | | | | | | | [facility] | | | | + + + + +---------+ + + + + | Result panel 29 | + + + + + + +---------+ + + | (unknown) | (no date) | (unknown) | [facility] | (no | (units | (unknown) | | | | | [facility]ICAL | value) | unknown) | | | | | | [facility], | | | | | | | | [facility] | | | | + + + + +---------+ + + + + | Result panel 30 | + + + + + + +---------+ + + | (unknown) | (no date) | (unknown) | [facility] | (no | (units | (unknown) | | | | | MEDICAL | value) | unknown) | | | | | | GROUP, | | | | | | | | [facility] | | | | + + + + +---------+ + + + + | Result panel 31 | + + + + + + +---------+ + + | (unknown) | (no date) | (unknown) | [facility] | (no | (units | (unknown) | | | | | MEDICAL | value) | unknown) | | | | | | GROUP, | | | | | | | | [facility] | | | | + + + + +---------+ + + + + | Result panel 32 | + + + + + + +---------+ + + | (unknown) | (no date) | (unknown) | [facility] | (no | (units | (unknown) | | | | | MEDICAL | value) | unknown) | | | | | | [facility], | | | | | | | | [facility] | | | | + + + + +---------+ + + + + | Result panel 33 | + + + + + + +---------+ + + | (unknown) | (no date) | (unknown) | [facility] | (no | (units | (unknown) | | | | | [facility] | value) | unknown) | | | | | | [facility], | | | | | | | | [facility] | | | | + + + + +---------+ + + + + | Result panel 34 | + + + + + + +---------+ + + | (unknown) | (no date) | (unknown) | [facility] | (no | (units | (unknown) | | | | | [facility] | value) | unknown) | | | | | | [facility], | | | | | | | | [facility] | | | | + + + + +---------+ + + + + | Result panel 35 | + + + + + + +---------+ + + | (unknown) | (no date) | (unknown) | [facility] | (no | (units | (unknown) | | | | | [facility]ICAL | value) | unknown) | | | | | | [facility], | | | | | | | | [facility] | | | | + + + + +---------+ + + + + | Result panel 36 | + + + + + + +---------+ + + | (unknown) | (no date) | (unknown) | [facility] | (no | (units | (unknown) | | | | | [facility]ICAL | value) | unknown) | | | | | | [facility], | | | | | | | | [facility] | | | | + + + + +---------+ + + + + | Result panel 37 | + + + + + + +---------+ + + | (unknown) | (no date) | (unknown) | [facility] | (no | (units | (unknown) | | | | | [facility]ICAL | value) | unknown) | | | | | | [facility], | | | | | | | | [facility] | | | | + + + + +---------+ + + + + | Result panel 38 | + + + + + + +---------+ + + | (unknown) | (no date) | (unknown) | [facility] | (no | (units | (unknown) | | | | | [facility]ICAL | value) | unknown) | | | | | | [facility], | | | | | | | | [facility] | | | | + + + + +---------+ + + + + | Result panel 39 | + + + + + + +---------+ + + | (unknown) | (no date) | (unknown) | [facility] | (no | (units | (unknown) | | | | | [facility] | value) | unknown) | | | | | | [facility], | | | | | | | | [facility] | | | | + + + + +---------+ + + + + | Result panel 40 | + + + + + + +---------+ + + | (unknown) | (no date) | (unknown) | [facility] | (no | (units | (unknown) | | | | | [facility] | value) | unknown) | | | | | | [facility], | | | | | | | | [facility] | | | | + + + + +---------+ + + + + | Result panel 41 | + + + + + + +---------+ + + | (unknown) | (no date) | (unknown) | [facility] | (no | (units | (unknown) | | | | | [facility] | value) | unknown) | | | | | | [facility], | | | | | | | | [facility] | | | | + + + + +---------+ + + + + | Result panel 42 | + + + + + + +---------+ + + | (unknown) | (no date) | (unknown) | [facility] | (no | (units | (unknown) | | | | | [facility] | value) | unknown) | | | | | | [facility], | | | | | | | | [facility] | | | | + + + + +---------+ + + + + | Result panel 43 | + + + + + + +---------+ + + | (unknown) | (no date) | (unknown) | [facility] | (no | (units | (unknown) | | | | | [facility] | value) | unknown) | | | | | | [facility], | | | | | | | | [facility] | | | | + + + + +---------+ + + + + | Result panel 44 | + + + + + + +---------+ + + | (unknown) | (no date) | (unknown) | [facility] | (no | (units | (unknown) | | | | | [facility] | value) | unknown) | | | | | | [facility], | | | | | | | | [facility] | | | | + + + + +---------+ + + + + | Result panel 45 | + + + + + + +---------+ + + | (unknown) | (no date) | (unknown) | [facility] | (no | (units | (unknown) | | | | | [facility] | value) | unknown) | | | | | | [facility], | | | | | | | | [facility] | | | | + + + + +---------+ + + + + | Result panel 46 | + + + + + + +---------+ + + | (unknown) | (no date) | (unknown) | [facility] | (no | (units | (unknown) | | | | | [facility] | value) | unknown) | | | | | | [facility], | | | | | | | | [facility] | | | | + + + + +---------+ + + + + | Result panel 47 | + + + + + + +---------+ + + | (unknown) | (no date) | (unknown) | [facility] | (no | (units | (unknown) | | | | | [facility] | value) | unknown) | | | | | | [facility], | | | | | | | | [facility] | | | | + + + + +---------+ + + + + | Result panel 48 | + + + + + + +---------+ + + | (unknown) | (no date) | (unknown) | [facility] | (no | (units | (unknown) | | | | | [facility] | value) | unknown) | | | | | | [facility], | | | | | | | | [facility] | | | | + + + + +---------+ + + + + | Result panel 49 | + + + + + + +---------+ + + | (unknown) | (no date) | (unknown) | [facility] | (no | (units | (unknown) | | | | | [facility] | value) | unknown) | | | | | | [facility], | | | | | | | | [facility] | | | | + + + + +---------+ + + + + | Result panel 50 | + + + + + + +---------+ + + | (unknown) | (no date) | (unknown) | [facility] | (no | (units | (unknown) | | [facility] | [facility] | | | | + + + + +---------+ + + + + | Result panel 51 | + + + + + + +---------+ + + | (unknown) | (no date) | (unknown) | [facility] | (no | (units | (unknown) | | | [facility] value[facility] | [facility] | | [facility] | | | | + + + + +---------+ + + + + | Result panel 52 | + + + + + + +---------+ + + | (unknown) | (no date) | (unknown) | [facility] | (no | (units | (unknown) | | | | [facility] value[facility] | [facility] | | [facility] | | | | + + + + +---------+ + + + + | Result panel 53 | + + + + + + +---------+ + + | (unknown) | (no date) | (unknown) | [facility] | (no | (units | (unknown) | | | [facility] | [facility] | | | | + + + + +---------+ + + + + | Result panel 54 | + + + + + + +---------+ + + | (unknown) | (no date) | (unknown) | [facility] | (no | (units | (unknown) | | | | [facility] value[facility] | [facility] | | [facility] | | | | + + + + +---------+ + + + + | Result panel 55 | + + + + + + +---------+ + + | (unknown) | (no date) | (unknown) | [facility] | (no | (units | (unknown) | | | | [facility] value[facility] | [facility] | | [facility] | | | | + + + + +---------+ + + + + | Result panel 56 | + + + + + + +---------+ + + | (unknown) | (no date) | (unknown) | [facility] | (no | (units | (unknown) | | | [facility] value[facility] | [facility] | | | | + + + + +---------+ + + + + | Result panel 57 | + + + + + + +---------+ + + | (unknown) | (no date) | (unknown) | [facility] | (no | (units | (unknown) | | | | | [facility] | value) | unknown) | | | | | | [facility] | | | | | | | | [facility] | | | | + + + + +---------+ + + + + | Result panel 58 | + + + + + + +---------+ + + | (unknown) | (no date) | (unknown) | [facility] | (no | (units | (unknown) | | | [facility] | [facility] | | | | + + + + +---------+ + + + + | Result panel 59 | + + + + + + +---------+ + + | (unknown) | (no date) | (unknown) | [facility] | (no | (units | (unknown) | | | [facility] | [facility] | | | | + + + + +---------+ + + + + | Result panel 60 | + + + + + + +---------+ + + | (unknown) | (no date) | (unknown) | [facility] | (no | (units | (unknown) | | | [facility] | [facility] | | | | + + + + +---------+ + + + + | Result panel 61 | + + + + + + +---------+ + + | (unknown) | (no date) | (unknown) | [facility] | (no | (units | (unknown) | | | [facility] | [facility] | | [facility] | | | | + + + + +---------+ + + + + | Result panel 62 | + + + + + + +---------+ + + | (unknown) | (no date) | (unknown) | [facility] | (no | (units | (unknown) | | | [facility] | [facility] | | [facility] | | | | + + + + +---------+ + + + + | Result panel 63 | + + + + + + +---------+ + + | (unknown) | (no date) | (unknown) | [facility] | (no | (units | (unknown) | | | [facility] | [facility] | | [facility] | | | | + + + + +---------+ + + + + | Result panel 64 | + + + + + + +---------+ + + | (unknown) | (no date) | (unknown) | [facility] | (no | (units | (unknown) | | | [facility] | [facility] | | [facility] | | | | + + + + +---------+ + + + + | Result panel 65 | + + + + + + +---------+ + + | (unknown) | (no date) | (unknown) | [facility] | (no | (units | (unknown) | | | [facility] | [facility] | | [facility] | | | | + + + + +---------+ + + + + | Result panel 66 | + + + + + + +---------+ + + | (unknown) | (no date) | (unknown) | [facility] | (no | (units | (unknown) | | | | | [facility] | value) | unknown) | | | | | [facility] | | | | + + + + +---------+ + + + + | Result panel 67 | + + + + + + +---------+ + + | (unknown) | (no date) | (unknown) | [facility] | (no | (units | (unknown) | | | | | [facility] | value) | unknown) | | | | | [facility] | | | | + + + + +---------+ + + + + | Result panel 68 | + + + + + + +---------+ + + | (unknown) | (no date) | (unknown) | [facility] | (no | (units | (unknown) | | | | | [facility] | value) | unknown) | | | | | | [facility] | | | | | | | [facility] | | | | + + + + +---------+ + + + + | Result panel 69 | + + + + + + +---------+ + + | (unknown) | (no date) | (unknown) | [facility] | (no | (units | (unknown) | | | | | [facility] | value) | unknown) | | | | | [facility] | | | | + + + + +---------+ + + + + | Result panel 70 | + + + + + + +---------+ + + | (unknown) | (no date) | (unknown) | [facility] | (no | (units | (unknown) | | | | | [facility] | value) | unknown) | | | | | [facility] | | | | + + + + +---------+ + + + + | Result panel 71 | + + + + + + +---------+ + + | (unknown) | (no date) | (unknown) | [facility] | (no | (units | (unknown) | | | | | [facility] | value) | unknown) | | | | | | [facility] | | | | + + + + +---------+ + + + + | Result panel 72 | + + + + + + +---------+ + + | (unknown) | (no date) | (unknown) | [facility] | (no | (units | (unknown) | | | | | [facility] | value) | unknown) | | | | | [facility] | | | | + + + + +---------+ + + + + | Result panel 73 | + + + + + + +---------+ + + | (unknown) | (no date) | (unknown) | [facility] | (no | (units | (unknown) | | | | | [facility] | value) | unknown) | | | | | | [facility] | | | | + + + + +---------+ + + + + | Result panel 74 | + + + + + + +---------+ + + | (unknown) | (no date) | (unknown) | [facility] | (no | (units | (unknown) | | | | | [facility] | value) | unknown) | | | | | | [facility] | | | | + + + + +---------+ + + + + | Result panel 75 | + + + + + + +---------+ + + | (unknown) | (no date) | (unknown) | [facility] | (no | (units | (unknown) | | | | | [facility] | value) | unknown) | | | | | [facility] | | | | + + + + +---------+ + + + + | Result panel 76 | + + + + + + +---------+ + + | (unknown) | (no date) | (unknown) | [facility] | (no | (units | (unknown) | | | | | [facility] | value) | unknown) | | | | | | [facility] | | | | + + + + +---------+ + + + + | Result panel 77 | + + + + + + +---------+ + + | (unknown) | (no date) | (unknown) | [facility] | (no | (units | (unknown) | | | | | [facility] | value) | unknown) | | | | | | [facility] | | | | + + + + +---------+ + + + + | Result panel 78 | + + + + + + +---------+ + + | (unknown) | (no date) | (unknown) | [facility] | (no | (units | (unknown) | | | | | [facility] | value) | unknown) | | | | | | [facility] | | | | + + + + +---------+ + + + + | Result panel 79 | + + + + + + +---------+ + + | (unknown) | (no date) | (unknown) | [facility] | (no | (units | (unknown) | | | | | [facility] | value) | unknown) | | | | | | [facility] | | | | | [facility] | | | | + + + + +---------+ + + + + | Result panel 80 | + + + + + + +---------+ + + | (unknown) | (no date) | (unknown) | [facility] | (no | (units | (unknown) | | | | | [facility] | value) | unknown) | | | | | | [facility] | | | | + + + + +---------+ + + + + | Result panel 81 | + + + + + + +---------+ + + | (unknown) | (no date) | (unknown) | [facility] | (no | (units | (unknown) | | | | | [facility] | value) | unknown) | | | | | | [facility] | | | | + + + + +---------+ + + + + | Result panel 82 | + + + + + + +---------+ + + | (unknown) | (no date) | (unknown) | [facility] | (no | (units | (unknown) | | | [facility] | [facility] | | | | + + + + +---------+ + + + + | Result panel 83 | + + + + + + +---------+ + + | (unknown) | (no date) | (unknown) | [facility] | (no | (units | (unknown) | | | | [facility] | value[facility] | unknown) | | [facility] | | | | + + + + +---------+ + + + + | Result panel 84 | + + + + + + +---------+ + + | (unknown) | (no date) | (unknown) | [facility] | (no | (units | (unknown) | | | | [facility] | value[facility] | [facility] | | [facility] | | | | + + + + +---------+ + + + + | Result panel 85 | + + + + + + +---------+ + + | (unknown) | (no date) | (unknown) | [facility] | (no | (units | (unknown) | | | | [facility] | value[facility] | [facility] | | [facility] | | | | + + + + +---------+ + + + + | Result panel 86 | + + + + + + +---------+ + + | (unknown) | (no date) | (unknown) | [facility] | (no | (units | (unknown) | | | | [facility] | value) | [facility]) | | [facility] | | | | + + + + +---------+ + + + + | Result panel 87 | + + + + + + +---------+ + + | (unknown) | (no date) | (unknown) | [facility] | (no | (units | (unknown) | | | | [facility] value[facility] | [facility] | | [facility] | | | | + + + + +---------+ + + + + | Result panel 88 | + + + + + + +---------+ + + | (unknown) | (no date) | (unknown) | [facility] | (no | (units | (unknown) | | | | [facility] | value[facility] | [facility]) | | | [facility] | | | | + + + + +---------+ + + + + | Result panel 89 | + + + + + + +---------+ + + | (unknown) | (no date) | (unknown) | [facility] | (no | (units | (unknown) | | | | [facility] | value[facility] | [facility]) | | [facility] | | | | + + + + +---------+ + + + + | Result panel 90 | + + + + + + +---------+ + + | (unknown) | (no date) | (unknown) | [facility] | (no | (units | (unknown) | | | | | [facility] | value) | unknown) | | | | | | [facility] | | | | | | | | [facility] | | | | + + + + +---------+ + + + + | Result panel 91 | + + + + + + +---------+ + + | (unknown) | (no date) | (unknown) | [facility] | (no | (units | (unknown) | | | | [facility] | [facility] | [facility] | | | | + + + + +---------+ + + + + | Result panel 92 | + + + + + + +---------+ + + | (unknown) | (no date) | (unknown) | [facility] | (no | (units | (unknown) | | | | [facility] | [facility] | | [facility] | | | | + + + + +---------+ + + + + | Result panel 93 | + + + + + + +---------+ + + | (unknown) | (no date) | (unknown) | [facility] | (no | (units | (unknown) | | | | [facility] | value[facility] | [facility]) | | [facility] | | | | + + + + +---------+ + + + + | Result panel 94 | + + + + + + +---------+ + + | (unknown) | (no date) | (unknown) | [facility] | (no | (units | (unknown) | | | | [facility] | value) | [facility]) | | | [facility] | | | | + + + + +---------+ + + + + | Result panel 95 | + + + + + + +---------+ + + | (unknown) | (no date) | (unknown) | [facility] | (no | (units | (unknown) | | [facility] | [facility] | value) | [facility]) | | | [facility] | | | | + + + + +---------+ + + + + | Result panel 96 | + + + + + + +---------+ + + | (unknown) | (no date) | (unknown) | [facility] | (no | (units | (unknown) | | | | | [facility] | value) | [facility]) | | | [facility] | | | | + + + + +---------+ + + + + | Result panel 97 | + + + + + + +---------+ + + | (unknown) | (no date) | (unknown) | [facility] | (no | (units | (unknown) | | | | | [facility] | value) | [facility]) | | | [facility] | | | | + + + + +---------+ + + + + | Result panel 98 | + + + + + + +---------+ + + | (unknown) | (no date) | (unknown) | [facility] | (no | (units | (unknown) | | | | | [facility] | value) | unknown) | | | | | | [facility] | | | | | | [facility] | | | | + + + + +---------+ + + + + | Result panel 99 | + + + + + + +---------+ + + | (unknown) | (no date) | (unknown) | [facility] | (no | (units | (unknown) | | | | | [facility] | value) | unknown) | | | | | | [facility] | | | | | | | | [facility] | | | | + + + + +---------+ + + + + | Result panel 100 | + + + + + + +---------+ + + | (unknown) | (no date) | (unknown) | [facility] | (no | (units | (unknown) | | | | | [facility] | value) | unknown) | | | | | | [facility] | | | | | | | | [facility] | | | | + + + + +---------+ + + + + | Result panel 101 | + + + + + + +---------+ + + | (unknown) | (no date) | (unknown) | [facility] | (no | (units | (unknown) | | | | | [facility] | value) | unknown) | | | | | | [facility] | | | | | | | | [facility] | | | | + + + + +---------+ + + + + | Result panel 102 | + + + + + + +---------+ + + | (unknown) | (no date) | (unknown) | [facility] | (no | (units | (unknown) | | | | | [facility] | value) | unknown) | | | | | | [facility] | | | | | | | | [facility] | | | | + + + + +---------+ + + + + | Result panel 103 | + + + + + + +---------+ + + | (unknown) | (no date) | (unknown) | [facility] | (no | (units | (unknown) | | | | | [facility] | value) | unknown) | | | | | | [facility] | | | | | | | | [facility] | | | | + + + + +---------+ + + + + | Result panel 104 | + + + + + + +---------+ + + | (unknown) | (no date) | (unknown) | [facility] | (no | (units | (unknown) | | | | | [facility] | value) | unknown) | | | | | | [facility] | | | | | | | | [facility] | | | | + + + + +---------+ + + + + | Result panel 105 | + + + + + + +---------+ + + | (unknown) | (no date) | (unknown) | [facility] | (no | (units | (unknown) | | | | | [facility] | value) | unknown) | | | | | | [facility] | | | | | | | | [facility] | | | | + + + + +---------+ + + + + | Result panel 106 | + + + + + + +---------+ + + | (unknown) | (no date) | (unknown) | [facility] | (no | (units | (unknown) | | | | | [facility] | value) | unknown) | | | | | | [facility] | | | | | | | | [facility] | | | | + + + + +---------+ + + + + | Result panel 107 | + + + + + + +---------+ + + | (unknown) | (no date) | (unknown) | [facility] | (no | (units | (unknown) | | | | | [facility] | value) | unknown) | | | | | | [facility] | | | | | | | | [facility] | | | | + + + + +---------+ + + + + | Result panel 108 | + + + + + + +---------+ + + | (unknown) | (no date) | (unknown) | [facility] | (no | (units | (unknown) | | | | | [facility] | value) | unknown) | | | | | | [facility], | | | | | | | | [facility] | | | | + + + + +---------+ + + + + | Result panel 109 | + + + + + + +---------+ + + | (unknown) | (no date) | (unknown) | [facility] | (no | (units | (unknown) | | | | | [facility] | value) | unknown) | | | | | | [facility] | | | | | | | | [facility] | | | | + + + + +---------+ + + + + | Result panel 110 | + + + + + + +---------+ + + | (unknown) | (no date) | (unknown) | [facility] | (no | (units | (unknown) | | | | | [facility] | value) | unknown) | | | | | | [facility] | | | | | | | | [facility] | | | | + + + + +---------+ + + + + | Result panel 111 | + + + + + + +---------+ + + | (unknown) | (no date) | (unknown) | [facility] | (no | (units | (unknown) | | | | | [facility] | value) | unknown) | | | | | | [facility] | | | | | | | | [facility] | | | | + + + + +---------+ + + + + | Result panel 112 | + + + + + + +---------+ + + | (unknown) | (no date) | (unknown) | [facility] | (no | (units | (unknown) | | | | | [facility] | value) | unknown) | | | | | | [facility], | | | | | | | | [facility] | | | | + + + + +---------+ + + + + | Result panel 113 | + + + + + + +---------+ + + | (unknown) | (no date) | (unknown) | [facility] | (no | (units | (unknown) | | | | | [facility] | value) | unknown) | | | | | | [facility] | | | | | | | | [facility] | | | | + + + + +---------+ + + + + | Result panel 114 | + + + + + + +---------+ + + | (unknown) | (no date) | (unknown) | [facility] | (no | (units | (unknown) | | | | | [facility] | value) | unknown) | | | | | | [facility], | | | | | | | | [facility] | | | | + + + + +---------+ + + + + | Result panel 115 | + + + + + + +---------+ + + | (unknown) | (no date) | (unknown) | [facility] | (no | (units | (unknown) | | | | | [facility] | value) | unknown) | | | | | | [facility], | | | | | | | | [facility] | | | | + + + + +---------+ + + + + | Result panel 116 | + + + + + + +---------+ + + | (unknown) | (no date) | (unknown) | [facility] | (no | (units | (unknown) | | | | | [facility] | value) | unknown) | | | | | | [facility] | | | | | | | | [facility] | | | | + + + + +---------+ + + + + | Result panel 117 | + + + + + + +---------+ + + | (unknown) | (no date) | (unknown) | [facility] | (no | (units | (unknown) | | | | | [facility] | value) | unknown) | | | | | | [facility], | | | | | | | | [facility] | | | | + + + + +---------+ + + + + | Result panel 118 | + + + + + + +---------+ + + | (unknown) | (no date) | (unknown) | [facility] | (no | (units | (unknown) | | | | | [facility] | value) | unknown) | | | | | | [facility], | | | | | | | | [facility] | | | | + + + + +---------+ + + + + | Result panel 119 | + + + + + + +---------+ + + | (unknown) | (no date) | (unknown) | [facility] | (no | (units | (unknown) | | | | | [facility] | value) | unknown) | | | | | | [facility] | | | | | | | | [facility] | | | | + + + + +---------+ + + + + | Result panel 120 | + + + + + + +---------+ + + | (unknown) | (no date) | (unknown) | [facility] | (no | (units | (unknown) | | | | | [facility] | value) | unknown) | | | | | | [facility], | | | | | | | | [facility] | | | | + + + + +---------+ + + + + | Result panel 121 | + + + + + + +---------+ + + | (unknown) | (no date) | (unknown) | [facility] | (no | (units | (unknown) | | | | | [facility] | value) | unknown) | | | | | | [facility] | | | | | | | | [facility] | | | | + + + + +---------+ + + + + | Result panel 122 | + + + + + + +---------+ + + | (unknown) | (no date) | (unknown) | [facility] | (no | (units | (unknown) | | | | | [facility] | value) | unknown) | | | | | | [facility], | | | | | | | | [facility] | | | | + + + + +---------+ + + + + | Result panel 123 | + + + + + + +---------+ + + | (unknown) | (no date) | (unknown) | [facility] | (no | (units | (unknown) | | | | | [facility] | value) | unknown) | | | | | | [facility] | | | | | | | | [facility] | | | | + + + + +---------+ + + + + | Result panel 124 | + + + + + + +---------+ + + | (unknown) | (no date) | (unknown) | [facility] | (no | (units | (unknown) | | | | | [facility] | value) | unknown) | | | | | | [facility], | | | | | | | | [facility] | | | | + + + + +---------+ + + + + | Result panel 125 | + + + + + + +---------+ + + | (unknown) | (no date) | (unknown) | [facility] | (no | (units | (unknown) | | | | | [facility] | value) | unknown) | | | | | | [facility], | | | | | | | | [facility] | | | | + + + + +---------+ + + + + | Result panel 126 | + + + + + + +---------+ + + | (unknown) | (no date) | (unknown) | [facility] | (no | (units | (unknown) | | | | | [facility] | value) | unknown) | | | | | | [facility], | | | | | | | | [facility] | | | | + + + + +---------+ + + + + | Result panel 127 | + + + + + + +---------+ + + | (unknown) | (no date) | (unknown) | [facility] | (no | (units | (unknown) | | | | | [facility] | value) | unknown) | | | | | | [facility], | | | | | | | | [facility] | | | | + + + + +---------+ + + + + | Result panel 128 | + + + + + + +---------+ + + | (unknown) | (no date) | (unknown) | [facility] | (no | (units | (unknown) | | | | | [facility] | value) | unknown) | | | | | | [facility], | | | | | | | | [facility] | | | | + + + + +---------+ + + + + | Result panel 129 | + + + + + + +---------+ + + | (unknown) | (no date) | (unknown) | [facility] | (no | (units | (unknown) | | | | | [facility] | value) | unknown) | | | | | | [facility], | | | | | | | | [facility] | | | | + + + + +---------+ + + + + | Result panel 130 | + + + + + + +---------+ + + | (unknown) | (no date) | (unknown) | [facility] | (no | (units | (unknown) | | | | | [facility] | value) | unknown) | | | | | | [facility], | | | | | | | | [facility] | | | | + + + + +---------+ + + + + | Result panel 131 | + + + + + + +---------+ + + | (unknown) | (no date) | (unknown) | [facility] | (no | (units | (unknown) | | | | | [facility] | value) | unknown) | | | | | | [facility], | | | | | | | | [facility] | | | | + + + + +---------+ + + + + | Result panel 132 | + + + + + + +---------+ + + | (unknown) | (no date) | (unknown) | [facility] | (no | (units | (unknown) | | | | | [facility] | value) | unknown) | | | | | | [facility], | | | | | | | | [facility] | | | | + + + + +---------+ + + + + | Result panel 133 | + + + + + + +---------+ + + | (unknown) | (no date) | (unknown) | [facility] | (no | (units | (unknown) | | | | | [facility] | value) | unknown) | | | | | | [facility], | | | | | | | | [facility] | | | | + + + + +---------+ + + + + | Result panel 134 | + + + + + + +---------+ + + | (unknown) | (no date) | (unknown) | [facility] | (no | (units | (unknown) | | | | | [facility] | value) | unknown) | | | | | | [facility], | | | | | | | | [facility] | | | | + + + + +---------+ + + + + | Result panel 135 | + + + + + + +---------+ + + | (unknown) | (no date) | (unknown) | [facility] | (no | (units | (unknown) | | | | | [facility] | value) | unknown) | | | | | | [facility], | | | | | | | | [facility] | | | | + + + + +---------+ + + + + | Result panel 136 | + + + + + + +---------+ + + | (unknown) | (no date) | (unknown) | [facility] | (no | (units | (unknown) | | | | | [facility] | value) | unknown) | | | | | | [facility], | | | | | | | | [facility] | | | | + + + + +---------+ + + + + | Result panel 137 | + + + + + + +---------+ + + | (unknown) | (no date) | (unknown) | [facility] | (no | (units | (unknown) | | | | | [facility] | value) | unknown) | | | | | | [facility], | | | | | | | | [facility] | | | | + + + + +---------+ + + + + | Result panel 138 | + + + + + + +---------+ + + | (unknown) | (no date) | (unknown) | [facility] | (no | (units | (unknown) | | | | | [facility] | value) | unknown) | | | | | | [facility], | | | | | | | | [facility] | | | | + + + + +---------+ + + + + | Result panel 139 | + + + + + + +---------+ + + | (unknown) | (no date) | (unknown) | [facility] | (no | (units | (unknown) | | | | | [facility] | value) | unknown) | | | | | | [facility], | | | | | | | | [facility] | | | | + + + + +---------+ + + + + | Result panel 140 | + + + + + + +---------+ + + | (unknown) | (no date) | (unknown) | [facility] | (no | (units | (unknown) | | | | | [facility] | value) | unknown) | | | | | | [facility], | | | | | | | | [facility] | | | | + + + + +---------+ + + + + | Result panel 141 | + + + + + + +---------+ + + | (unknown) | (no date) | (unknown) | [facility] | (no | (units | (unknown) | | | | | [facility] | value) | unknown) | | | | | | [facility], | | | | | | | | [facility] | | | | + + + + +---------+ + + + + | Result panel 142 | + + + + + + +---------+ + + | (unknown) | (no date) | (unknown) | [facility] | (no | (units | (unknown) | | | | | [facility] | value) | unknown) | | | | | | [facility], | | | | | | | | [facility] | | | | + + + + +---------+ + + + + | Result panel 143 | + + + + + + +---------+ + + | (unknown) | (no date) | (unknown) | [facility] | (no | (units | (unknown) | | | | | [facility] | value) | unknown) | | | | | | [facility], | | | | | | | | [facility] | | | | + + + + +---------+ + + + + | Result panel 144 | + + + + + + +---------+ + + | (unknown) | (no date) | (unknown) | [facility] | (no | (units | (unknown) | | | | | [facility] | value) | unknown) | | | | | | [facility], | | | | | | | | [facility] | | | | + + + + +---------+ + + + + | Result panel 145 | + + + + + + +---------+ + + | (unknown) | (no date) | (unknown) | [facility] | (no | (units | (unknown) | | | | | [facility] | value) | unknown) | | | | | | [facility], | | | | | | | | [facility] | | | | + + + + +---------+ + + + + | Result panel 146 | + + + + + + +---------+ + + | (unknown) | (no date) | (unknown) | [facility] | (no | (units | (unknown) | | | | | [facility] | value) | unknown) | | | | | | [facility], | | | | | | | | [facility] | | | | + + + + +---------+ + + + + | Result panel 147 | + + + + + + +---------+ + + | (unknown) | (no date) | (unknown) | [facility] | (no | (units | (unknown) | | | | | [facility] | value) | unknown) | | | | | | [facility], | | | | | | | | [facility] | | | | + + + + +---------+ + + + + | Result panel 148 | + + + + + + +---------+ + + | (unknown) | (no date) | (unknown) | [facility] | (no | (units | (unknown) | | | | | [facility] | value) | unknown) | | | | | | [facility], | | | | | | | | [facility] | | | | + + + + +---------+ + + + + | Result panel 149 | + + + + + + +---------+ + + | (unknown) | (no date) | (unknown) | [facility] | (no | (units | (unknown) | | | | | [facility] | value) | unknown) | | | | | | [facility], | | | | | | | | [facility] | | | | + + + + +---------+ + + + + | Result panel 150 | + + + + + + +---------+ + + | (unknown) | (no date) | (unknown) | [facility] | (no | (units | (unknown) | | | | | [facility] | value) | unknown) | | | | | | [facility], | | | | | | | | [facility] | | | | + + + + +---------+ + + + + | Result panel 151 | + + + + + + +---------+ + + | (unknown) | (no date) | (unknown) | [facility] | (no | (units | (unknown) | | | | | [facility] | value) | unknown) | | | | | | [facility], | | | | | | | | [facility] | | | | + + + + +---------+ + + + + | Result panel 152 | + + + + + + +---------+ + + | (unknown) | (no date) | (unknown) | [facility] | (no | (units | (unknown) | | | [facility] | [facility] | [facility] | | | [facility] | | | | + + + + +---------+ + + + + | Result panel 153 | + + + + + + +---------+ + + | (unknown) | (no date) | (unknown) | [facility] | (no | (units | (unknown) | | | | | [facility] | value) | unknown) | | | | | [facility] | | | | + + + + +---------+ + + + + | Result panel 154 | + + + + + + +---------+ + + | (unknown) | (no date) | (unknown) | [facility] | (no | (units | (unknown) | | | | | [facility] | value) | unknown) | | | | | [facility] | | | | + + + + +---------+ + + + + | Result panel 155 | + + + + + + +---------+ + + | (unknown) | (no date) | (unknown) | [facility] | (no | (units | (unknown) | | | | | [facility] | value) | unknown) | | | | | [facility] | | | | + + + + +---------+ + + + + | Result panel 156 | + + + + + + +---------+ + + | (unknown) | (no date) | (unknown) | [facility] | (no | (units | (unknown) | | | | | [facility] | value) | unknown) | | | | | [facility] | | | | + + + + +---------+ + + + + | Result panel 157 | + + + + + + +---------+ + + | (unknown) | (no date) | (unknown) | [facility] | (no | (units | (unknown) | | | | | [facility] | value) | unknown) | | | | | | [facility], | | | | | | | | [facility] | | | | + + + + +---------+ + + + + | Result panel 158 | + + + + + + +---------+ + + | (unknown) | (no date) | (unknown) | [facility] | (no | (units | (unknown) | | | | | [facility] | value) | unknown) | | | | | [facility] | | | | + + + + +---------+ + + + + | Result panel 159 | + + + + + + +---------+ + + | (unknown) | (no date) | (unknown) | [facility] | (no | (units | (unknown) | | | | | [facility] | value) | unknown) | | | | | [facility] | | | | + + + + +---------+ + + + + | Result panel 160 | + + + + + + +---------+ + + | (unknown) | (no date) | (unknown) | [facility] | (no | (units | (unknown) | | | | | [facility] | value) | unknown) | | | | | [facility] | | | | + + + + +---------+ + + + + | Result panel 161 | + + + + + + +---------+ + + | (unknown) | (no date) | (unknown) | [facility] | (no | (units | (unknown) | | | | | [facility] | value) | unknown) | | | | | [facility] | | | | + + + + +---------+ + + + + | Result panel 162 | + + + + + + +---------+ + + | (unknown) | (no date) | (unknown) | [facility] | (no | (units | (unknown) | | | | | [facility] | value) | unknown) | | | | | [facility] | | | | + + + + +---------+ + + + + | Result panel 163 | + + + + + + +---------+ + + | (unknown) | (no date) | (unknown) | [facility] | (no | (units | (unknown) | | | | | [facility] | value) | unknown) | | | | | [facility] | | | | + + + + +---------+ + + + + | Result panel 164 | + + + + + + +---------+ + + | (unknown) | (no date) | (unknown) | [facility] | (no | (units | (unknown) | | | | | [facility] | value) | unknown) | | | | | [facility] | | | | + + + + +---------+ + + + + | Result panel 165 | + + + + + + +---------+ + + | (unknown) | (no date) | (unknown) | [facility] | (no | (units | (unknown) | | | | | [facility] | value) | unknown) | | | | | [facility] | | | | + + + + +---------+ + + + + | Result panel 166 | + + + + + + +---------+ + + | (unknown) | (no date) | (unknown) | [facility] | (no | (units | (unknown) | | | | | [facility] | value) | unknown) | | | | | [facility] | | | | + + + + +---------+ + + + + | Result panel 167 | + + + + + + +---------+ + + | (unknown) | (no date) | (unknown) | [facility] | (no | (units | (unknown) | | | | | [facility] | value) | unknown) | | | | | [facility] | | | | + + + + +---------+ + + + + | Result panel 168 | + + + + + + +---------+ + + | (unknown) | (no date) | (unknown) | [facility] | (no | (units | (unknown) | | | | | [facility] | value) | unknown) | | | | | | [facility], | | | | | | | | [facility] | | | | + + + + +---------+ + + + + | Result panel 169 | + + + + + + +---------+ + + | (unknown) | (no date) | (unknown) | [facility] | (no | (units | (unknown) | | | | | [facility] | value) | unknown) | | | | [facility] | | | | + + + + +---------+ + + + + | Result panel 170 | + + + + + + +---------+ + + | (unknown) | (no date) | (unknown) | [facility] | (no | (units | (unknown) | | | | | [facility] | value) | unknown) | | | | | [facility] | | | | + + + + +---------+ + + + + | Result panel 171 | + + + + + + +---------+ + + | (unknown) | (no date) | (unknown) | [facility] | (no | (units | (unknown) | | | | | [facility] | value) | unknown) | | | | | [facility] | | | | + + + + +---------+ + + + + | Result panel 172 | + + + + + + +---------+ + + | (unknown) | (no date) | (unknown) | [facility] | (no | (units | (unknown) | | | | | [facility] | value) | unknown) | | | | | [facility] | | | | + + + + +---------+ + + + + | Result panel 173 | + + + + + + +---------+ + + | (unknown) | (no date) | (unknown) | [facility] | (no | (units | (unknown) | | | | | [facility] | value) | unknown) | | | | | [facility] | | | | + + + + +---------+ + + + + | Result panel 174 | + + + + + + +---------+ + + | (unknown) | (no date) | (unknown) | [facility] | (no | (units | (unknown) | | | | | [facility] | value) | unknown) | | | | | [facility] | | | | + + + + +---------+ + + + + | Result panel 175 | + + + + + + +---------+ + + | (unknown) | (no date) | (unknown) | [facility] | (no | (units | (unknown) | | | | | [facility] | value) | unknown) | | | | | [facility] | | | | + + + + +---------+ + + + + | Result panel 176 | + + + + + + +---------+ + + | (unknown) | (no date) | (unknown) | [facility] | (no | (units | (unknown) | | | | | [facility] | value) | unknown) | | | | | [facility] | | | | + + + + +---------+ + + + + | Result panel 177 | + + + + + + +---------+ + + | (unknown) | (no date) | (unknown) | [facility] | (no | (units | (unknown) | | | | | [facility] | value) | unknown) | | | | | [facility] | | | | + + + + +---------+ + + + + | Result panel 178 | + + + + + + +---------+ + + | (unknown) | (no date) | (unknown) | [facility] | (no | (units | (unknown) | | | | | [facility] | value) | unknown) | | | | | [facility] | | | | + + + + +---------+ + + + + | Result panel 179 | + + + + + + +---------+ + + | (unknown) | (no date) | (unknown) | [facility] | (no | (units | (unknown) | | | | | [facility] | value) | unknown) | | | | | | [facility] | | | | | | [facility] | | | | + + + + +---------+ + + + + | Result panel 180 | + + + + + + +---------+ + + | (unknown) | (no date) | (unknown) | [facility] | (no | (units | (unknown) | | | | | [facility] | value) | unknown) | | | | | | [facility] | | | | + + + + +---------+ + + + + | Result panel 181 | + + + + + + +---------+ + + | (unknown) | (no date) | (unknown) | [facility] | (no | (units | (unknown) | | | | | [facility] | value) | unknown) | | | | | [facility] | | | | + + + + +---------+ + + + + | Result panel 182 | + + + + + + +---------+ + + | (unknown) | (no date) | (unknown) | [facility] | (no | (units | (unknown) | | | | | [facility] | value) | unknown) | | | | | [facility] | | | | + + + + +---------+ + + + + | Result panel 183 | + + + + + + +---------+ + + | (unknown) | (no date) | (unknown) | [facility] | (no | (units | (unknown) | | | | | [facility] | value) | unknown) | | | | | [facility] | | | | + + + + +---------+ + + + + | Result panel 184 | + + + + + + +---------+ + + | (unknown) | (no date) | (unknown) | [facility] | (no | (units | (unknown) | | | | | [facility] | value) | unknown) | | | | | [facility] | | | | + + + + +---------+ + + + + | Result panel 185 | + + + + + + +---------+ + + | (unknown) | (no date) | (unknown) | [facility] | (no | (units | (unknown) | | | | | [facility] | value) | unknown) | | | | | [facility] | | | | + + + + +---------+ + + + + | Result panel 186 | + + + + + + +---------+ + + | (unknown) | (no date) | (unknown) | [facility] | (no | (units | (unknown) | | | | | [facility] | value) | unknown) | | | | | [facility] | | | | + + + + +---------+ + + + + | Result panel 187 | + + + + + + +---------+ + + | (unknown) | (no date) | (unknown) | [facility] (no | (units | (unknown) | | | | [facility] value[facility] | unknown[facility] | | | [facility] | | | | + + + + +---------+ + + + + | Result panel 188 | + + + + + + +---------+ + + | (unknown) | (no date) | (unknown) | [facility] | (no | (units | (unknown) | | | | | [facility] | value) | unknown) | | | | [facility] | | | | + + + + +---------+ + + + + | Result panel 189 | + + + + + + +---------+ + + | (unknown) | (no date) | (unknown) | [facility] | (no | (units | (unknown) | | | | | [facility] | value) | unknown) | | | | [facility] | | | | + + + + +---------+ + + + + | Result panel 190 | + + + + + + +---------+ + + | (unknown) | (no date) | (unknown) | [facility] | (no | (units | (unknown) | | | | | [facility] | value) | unknown) | | | | | | [facility] | | | | | | | | [facility] | | | | + + + + +---------+ + + + + | Result panel 191 | + + + + + + +---------+ + + | (unknown) | (no date) | (unknown) | [facility] | (no | (units | (unknown) | | | | | [facility] | value[facility] | unknown) | | | [facility] | | | | + + + + +---------+ + + + + | Result panel 192 | + + + + + + +---------+ + + | (unknown) | (no date) | (unknown) | [facility] | (no | (units | (unknown) | | | | | [facility] | value) | unknown) | | | | [facility] | | | | + + + + +---------+ + + + + | Result panel 193 | + + + + + + +---------+ + + | (unknown) | (no date) | (unknown) | [facility] | (no | (units | (unknown) | | | | | [facility] | value) | unknown) | | | [facility] | | | | + + + + +---------+ + + + + | Result panel 194 | + + + + + + +---------+ + + | (unknown) | (no date) | (unknown) | [facility] | (no | (units | (unknown) | | | | | [facility] | value) | unknown) | | | [facility] | | | | + + + + +---------+ + + + + | Result panel 195 | + + + + + + +---------+ + + | (unknown) | (no date) | (unknown) | [facility] | (no | (units | (unknown) | | | | | [facility] | value) | unknown) | | | [facility] | | | | + + + + +---------+ + + + + | Result panel 196 | + + + + + + +---------+ + + | (unknown) | (no date) | (unknown) | [facility] | (no | (units | (unknown) | | | | | [facility] | value) | unknown) | | | | [facility] | | | | + + + + +---------+ + + + + | Result panel 197 | + + + + + + +---------+ + + | (unknown) | (no date) | (unknown) | [facility] | (no | (units | (unknown) | | | | | [facility] | value) | unknown) | | | [facility] | | | | + + + + +---------+ + + + + | Result panel 198 | + + + + + + +---------+ + + | (unknown) | (no date) | (unknown) | [facility] | (no | (units | (unknown) | | | | | [facility] | value) | unknown) | | | | [facility] | | | | + + + + +---------+ + + + + | Result panel 199 | + + + + + + +---------+ + + | (unknown) | (no date) | (unknown) | [facility] | (no | (units | (unknown) | | | | | [facility] | value) | unknown) | | | | [facility] | | | | + + + + +---------+ + + + + | Result panel 200 | + + + + + + +---------+ + + | (unknown) | (no date) | (unknown) | [facility] | (no | (units | (unknown) | | | | | [facility] | value) | unknown) | | | | [facility] | | | | + + + + +---------+ + + + + | Result panel 201 | + + + + + + +---------+ + + | (unknown) | (no date) | (unknown) | [facility] | (no | (units | (unknown) | | | | | [facility] | value) | unknown) | | | | | | [facility] | | | | | | [facility] | | | | + + + + +---------+ + + + + | Result panel 202 | + + + + + + +---------+ + + | (unknown) | (no date) | (unknown) | [facility] | (no | (units | (unknown) | | [facility] | | [facility] | value[facility] | unknown) | | | | [facility] | | | | + + + + +---------+ + + + + | Result panel 203 | + + + + + + +---------+ + + | (unknown) | (no date) | (unknown) | [facility] | (no | (units | (unknown) | | | | | [facility] | value) | unknown) | | | | [facility] | | | | + + + + +---------+ + + + + | Result panel 204 | + + + + + + +---------+ + + | (unknown) | (no date) | (unknown) | [facility] | (no | (units | (unknown) | | | | | [facility] | value) | unknown) | | | | [facility] | | | | + + + + +---------+ + + + + | Result panel 205 | + + + + + + +---------+ + + | (unknown) | (no date) | (unknown) | [facility] | (no | (units | (unknown) | | | | | [facility] | value) | unknown) | | | | [facility] | | | | + + + + +---------+ + + + + | Result panel 206 | + + + + + + +---------+ + + | (unknown) | (no date) | (unknown) | [facility] | (no | (units | (unknown) | | | | | [facility] | value) | unknown) | | | | [facility] | | | | + + + + +---------+ + + + + | Result panel 207 | + + + + + + +---------+ + + | (unknown) | (no date) | (unknown) | [facility] | (no | (units | (unknown) | | | | | [facility] | value) | unknown) | | | | | [facility] | | | | + + + + +---------+ + + + + | Result panel 208 | + + + + + + +---------+ + + | (unknown) | (no date) | (unknown) | [facility] | (no | (units | (unknown) | | | | | [facility] | value) | unknown) | | | | [facility] | | | | + + + + +---------+ + + + + | Result panel 209 | + + + + + + +---------+ + + | (unknown) | (no date) | (unknown) | [facility] | (no | (units | (unknown) | | [facility] | | [facility] | value) | unknown) | | | | [facility] | | | | + + + + +---------+ + + + + | Result panel 210 | + + + + + + +---------+ + + | (unknown) | (no date) | (unknown) | [facility] | (no | (units | (unknown) | | | | | [facility] | value) | unknown) | | | | | [facility] | | | | + + + + +---------+ + + + + | Result panel 211 | + + + + + + +---------+ + + | (unknown) | (no date) | (unknown) | [facility] | (no | (units | (unknown) | | | | | [facility] | value) | unknown) | | | | [facility] | | | | + + + + +---------+ + + + + | Result panel 212 | + + + + + + +---------+ + + | (unknown) | (no date) | (unknown) | [facility] | (no | (units | (unknown) | | | | | [facility] | value) | unknown) | | | | | | [facility] | | | | | | [facility] | | | | + + + + +---------+ + + + + | Result panel 213 | + + + + + + +---------+ + + | (unknown) | (no date) | (unknown) | [facility] | (no | (units | (unknown) | | | | | [facility] | value) | unknown) | | | | | [facility] | | | | + + + + +---------+ + + + + | Result panel 214 | + + + + + + +---------+ + + | (unknown) | (no date) | (unknown) | [facility] | (no | (units | (unknown) | | | | | [facility] | value) | unknown) | | | | | [facility] | | | | + + + + +---------+ + + + + | Result panel 215 | + + + + + + +---------+ + + | (unknown) | (no date) | (unknown) | [facility] | (no | (units | (unknown) | | | | | [facility] | value) | unknown) | | | | | [facility] | | | | + + + + +---------+ + + + + | Result panel 216 | + + + + + + +---------+ + + | (unknown) | (no date) | (unknown) | [facility] | (no | (units | (unknown) | | [facility] | | [facility] | value) | unknown) | | | | | [facility] | | | | + + + + +---------+ + + + + | Result panel 217 | + + + + + + +---------+ + + | (unknown) | (no date) | (unknown) | [facility] | (no | (units | (unknown) | | | | | [facility] | value) | unknown) | | | | | [facility] | | | | + + + + +---------+ + + + + | Result panel 218 | + + + + + + +---------+ + + | (unknown) | (no date) | (unknown) | [facility] | (no | (units | (unknown) | | | | | [facility] | value) | unknown) | | | | | [facility] | | | | + + + + +---------+ + + + + | Result panel 219 | + + + + + + +---------+ + + | (unknown) | (no date) | (unknown) | [facility] | (no | (units | (unknown) | | | | | [facility] | value) | unknown) | | | | | [facility] | | | | + + + + +---------+ + + + + | Result panel 220 | + + + + + + +---------+ + + | (unknown) | (no date) | (unknown) | [facility] | (no | (units | (unknown) | | | | | [facility] | value) | unknown) | | | | | [facility] | | | | + + + + +---------+ + + + + | Result panel 221 | + + + + + + +---------+ + + | (unknown) | (no date) | (unknown) | [facility] | (no | (units | (unknown) | | | | | [facility] | value) | unknown) | | | | | [facility] | | | | + + + + +---------+ + + + + | Result panel 222 | + + + + + + +---------+ + + | (unknown) | (no date) | (unknown) | [facility] | (no | (units | (unknown) | | | | | [facility] | value) | unknown) | | | | | [facility] | | | | + + + + +---------+ + + + + | Result panel 223 | + + + + + + +---------+ + + | (unknown) | (no date) | (unknown) | [facility] | (no | (units | (unknown) | | | | | [facility] | value) | unknown) | | | | | | [facility] | [facility] | | | | | | [facility] | | | | + + + + +---------+ + + + + | Result panel 224 | + + + + + + +---------+ + + | (unknown) | (no date) | (unknown) | [facility] | (no | (units | (unknown) | | | | | [facility] | value) | unknown) | | | | | | [facility] | | | | | | [facility] | | | | + + + + +---------+ + + + + | Result panel 225 | + + + + + + +---------+ + + | (unknown) | (no date) | (unknown) | [facility] | (no | (units | (unknown) | | | | | [facility] | value) | unknown) | | | | [facility] | | | | + + + + +---------+ + + + + | Result panel 226 | + + + + + + +---------+ + + | (unknown) | (no date) | (unknown) | [facility] | (no | (units | (unknown) | | | | | [facility] | value) | unknown) | | | | | [facility] | | | | + + + + +---------+ + + + + | Result panel 227 | + + + + + + +---------+ + + | (unknown) | (no date) | (unknown) | [facility] | (no | (units | (unknown) | | | | | [facility] | value) | unknown) | | | | | [facility] | | | | + + + + +---------+ + + + + | Result panel 228 | + + + + + + +---------+ + + | (unknown) | (no date) | (unknown) | [facility] | (no | (units | (unknown) | | | | | [facility] | value) | unknown) | | | | | [facility] | | | | + + + + +---------+ + + + + | Result panel 229 | + + + + + + +---------+ + + | (unknown) | (no date) | (unknown) | [facility] | (no | (units | (unknown) | | | | | [facility] | value) | unknown) | | | | | [facility] | | | | + + + + +---------+ + + + + | Result panel 230 | + + + + + + +---------+ + + | (unknown) | (no date) | (unknown) | [facility] | (no | (units | (unknown) | | | | | [facility] | value) | unknown) | | | | | | [facility] | | | | + + + + +---------+ + + + + | Result panel 231 | + + + + + + +---------+ + + | (unknown) | (no date) | (unknown) | [facility] | (no | (units | (unknown) | | | | | [facility] | value) | unknown) | | | | | | [facility] | | | | + + + + +---------+ + + + + | Result panel 232 | + + + + + + +---------+ + + | (unknown) | (no date) | (unknown) | [facility] | (no | (units | (unknown) | | | | | [facility] | value) | unknown) | | | | | [facility] | | | | + + + + +---------+ + + + + | Result panel 233 | + + + + + + +---------+ + + | (unknown) | (no date) | (unknown) | [facility] | (no | (units | (unknown) | | | | | [facility] | value) | unknown) | | | | | | [facility] | | | | + + + + +---------+ + + + + | Result panel 234 | + + + + + + +---------+ + + | (unknown) | (no date) | (unknown) | [facility] | (no | (units | (unknown) | | | | | [facility] | value) | unknown) | | | | | [facility] | | | | + + + + +---------+ + + + + | Result panel 235 | + + + + + + +---------+ + + | (unknown) | (no date) | (unknown) | [facility] | (no | (units | (unknown) | | | | | [facility] | value) | unknown) | | | | | | [facility] | | | | | | | | [facility] | | | | + + + + +---------+ + + + + | Result panel 236 | + + + + + + +---------+ + + | (unknown) | (no date) | (unknown) | [facility] | (no | (units | (unknown) | | | | | [facility] | value) | unknown) | | | | | [facility] | | | | + + + + +---------+ + + + + | Result panel 237 | + + + + + + +---------+ + + | (unknown) | (no date) | (unknown) | [facility] | (no | (units | (unknown) | | | | | [facility] | value) | unknown) | | | | | | [facility] | | | | + + + + +---------+ + + + + | Result panel 238 | + + + + + + +---------+ + + | (unknown) | (no date) | (unknown) | [facility] | (no | (units | (unknown) | | | | | [facility] | value) | unknown) | | | | | [facility] | | | | + + + + +---------+ + + + + | Result panel 239 | + + + + + + +---------+ + + | (unknown) | (no date) | (unknown) | [facility] | (no | (units | (unknown) | | [facility] | | [facility] | value) | unknown) | | | | | [facility] | | | | + + + + +---------+ + + + + | Result panel 240 | + + + + + + +---------+ + + | (unknown) | (no date) | (unknown) | [facility] | (no | (units | (unknown) | | | | | [facility] | value) | unknown) | | | | | | [facility] | | | | + + + + +---------+ + + + + | Result panel 241 | + + + + + + +---------+ + + | (unknown) | (no date) | (unknown) | [facility] | (no | (units | (unknown) | | | | | [facility] | value) | unknown) | | | | | [facility] | | | | + + + + +---------+ + + + + | Result panel 242 | + + + + + + +---------+ + + | (unknown) | (no date) | (unknown) | [facility] | (no | (units | (unknown) | | | | | [facility] | value) | unknown) | | | | | [facility] | | | | + + + + +---------+ + + + + | Result panel 243 | + + + + + + +---------+ + + | (unknown) | (no date) | (unknown) | [facility] | (no | (units | (unknown) | | | | | [facility] | value) | unknown) | | | | | [facility] | | | | + + + + +---------+ + + + + | Result panel 244 | + + + + + + +---------+ + + | (unknown) | (no date) | (unknown) | [facility] | (no | (units | (unknown) | | | | | [facility] | value) | unknown) | | | | | | [facility] | | | | + + + + +---------+ + + + + | Result panel 245 | + + + + + + +---------+ + + | (unknown) | (no date) | (unknown) | [facility] | (no | (units | (unknown) | | | | | [facility] | value) | unknown) | | | | | [facility] | | | | + + + + +---------+ + + + + | Result panel 246 | + + + + + + +---------+ + + | (unknown) | (no date) | (unknown) | [facility] | (no | (units | (unknown) | | | | | [facility] | value) | unknown) | | | | | | [facility] | | | | | | | | [facility] | | | | + + + + +---------+ + + + + | Result panel 247 | + + + + + + +---------+ + + | (unknown) | (no date) | (unknown) | [facility] | (no | (units | (unknown) | | | | | [facility] | value) | unknown) | | | | | [facility] | | | | + + + + +---------+ + + + + | Result panel 248 | + + + + + + +---------+ + + | (unknown) | (no date) | (unknown) | [facility] | (no | (units | (unknown) | | | | | [facility] | value) | unknown) | | | | | [facility] | | | | + + + + +---------+ + + + + | Result panel 249 | + + + + + + +---------+ + + | (unknown) | (no date) | (unknown) | [facility] | (no | (units | (unknown) | | | | | [facility] | value) | unknown) | | | | | | [facility] | | | | + + + + +---------+ + + + + | Result panel 250 | + + + + + + +---------+ + + | (unknown) | (no date) | (unknown) | [facility] | (no | (units | (unknown) | | | | | [facility] | value) | unknown) | | | | | | [facility] | | | | + + + + +---------+ + + + + | Result panel 251 | + + + + + + +---------+ + + | (unknown) | (no date) | (unknown) | [facility] | (no | (units | (unknown) | | | | | [facility] | value) | unknown) | | | | | | [facility] | | | | + + + + +---------+ + + + + | Result panel 252 | + + + + + + +---------+ + + | (unknown) | (no date) | (unknown) | [facility] | (no | (units | (unknown) | | | | | [facility] | value) | unknown) | | | | | [facility] | | | | + + + + +---------+ + + + + | Result panel 253 | + + + + + + +---------+ + + | (unknown) | (no date) | (unknown) | [facility] | (no | (units | (unknown) | | | | | [facility] | value) | unknown) | | | | | [facility] | | | | + + + + +---------+ + + + + | Result panel 254 | + + + + + + +---------+ + + | (unknown) | (no date) | (unknown) | [facility] | (no | (units | (unknown) | | | | | [facility] | value) | unknown) | | | | | [facility] | | | | + + + + +---------+ + + + + | Result panel 255 | + + + + + + +---------+ + + | (unknown) | (no date) | (unknown) | [facility] | (no | (units | (unknown) | | | | | [facility] | value) | unknown) | | | | | [facility] | | | | + + + + +---------+ + + + + | Result panel 256 | + + + + + + +---------+ + + | (unknown) | (no date) | (unknown) | [facility] | (no | (units | (unknown) | | | | | [facility] | value) | unknown) | | | | | [facility] | | | | + + + + +---------+ + + + + | Result panel 257 | + + + + + + +---------+ + + | (unknown) | (no date) | (unknown) | [facility] | (no | (units | (unknown) | | | | | [facility] | value) | unknown) | | | | | | [facility] | | | | | | | | [facility] | | | | + + + + +---------+ + + + + | Result panel 258 | + + + + + + +---------+ + + | (unknown) | (no date) | (unknown) | [facility] | (no | (units | (unknown) | | | | | [facility] | value) | unknown) | | | | [facility] | | | | + + + + +---------+ + + + + | Result panel 259 | + + + + + + +---------+ + + | (unknown) | (no date) | (unknown) | [facility] | (no | (units | (unknown) | | | | | [facility] | value) | unknown) | | | | | [facility] | | | | + + + + +---------+ + + + + | Result panel 260 | + + + + + + +---------+ + + | (unknown) | (no date) | (unknown) | [facility] | (no | (units | (unknown) | | | | | [facility] | value) | unknown) | | | | | [facility] | | | | + + + + +---------+ + + + + | Result panel 261 | + + + + + + +---------+ + + | (unknown) | (no date) | (unknown) | [facility] | (no | (units | (unknown) | | | | | [facility] | value) | unknown) | | | | | | [facility] | | | | + + + + +---------+ + + + + | Result panel 262 | + + + + + + +---------+ + + | (unknown) | (no date) | (unknown) | [facility] | (no | (units | (unknown) | | | | | [facility] | value) | unknown) | | | | | [facility] | | | | + + + + +---------+ + + + + | Result panel 263 | + + + + + + +---------+ + + | (unknown) | (no date) | (unknown) | [facility] | (no | (units | (unknown) | | | | | [facility] | value) | unknown) | | | | | | [facility] | | | | + + + + +---------+ + + + + | Result panel 264 | + + + + + + +---------+ + + | (unknown) | (no date) | (unknown) | [facility] | (no | (units | (unknown) | | | | | [facility] | value) | unknown) | | | | | | [facility] | | | | + + + + +---------+ + + + + | Result panel 265 | + + + + + + +---------+ + + | (unknown) | (no date) | (unknown) | [facility] | (no | (units | (unknown) | | | | | [facility] | value) | unknown) | | | | | [facility] | | | | + + + + +---------+ + + + + | Result panel 266 | + + + + + + +---------+ + + | (unknown) | (no date) | (unknown) | [facility] | (no | (units | (unknown) | | | | | [facility] | value) | unknown) | | | | | | [facility] | | | | + + + + +---------+ + + + + | Result panel 267 | + + + + + + +---------+ + + | (unknown) | (no date) | (unknown) | [facility] | (no | (units | (unknown) | | | | | [facility] | value) | unknown) | | | | | | [facility] | | | | + + + + +---------+ + + + + | Result panel 268 | + + + + + + +---------+ + + | (unknown) | (no date) | (unknown) | [facility] | (no | (units | (unknown) | | | | | [facility] | value) | unknown) | | | | | | [facility], | | | | | | | | [facility] | | | | + + + + +---------+ + + + + | Result panel 269 | + + + + + + +---------+ + + | (unknown) | (no date) | (unknown) | [facility] | (no | (units | (unknown) | | | | | [facility] | value) | unknown) | | | | | [facility] | | | | + + + + +---------+ + + + + | Result panel 270 | + + + + + + +---------+ + + | (unknown) | (no date) | (unknown) | [facility] | (no | (units | (unknown) | | | | | [facility] | value) | unknown) | | | | | | [facility] | | | | + + + + +---------+ + + + + | Result panel 271 | + + + + + + +---------+ + + | (unknown) | (no date) | (unknown) | [facility] | (no | (units | (unknown) | | | | | [facility] | value) | unknown) | | | | | | [facility] | | | | + + + + +---------+ + + + + | Result panel 272 | + + + + + + +---------+ + + | (unknown) | (no date) | (unknown) | [facility] | (no | (units | (unknown) | | | | | [facility] | value) | unknown) | | | | | | [facility] | | | | + + + + +---------+ + + + + | Result panel 273 | + + + + + + +---------+ + + | (unknown) | (no date) | (unknown) | [facility] | (no | (units | (unknown) | | | | | [facility] | value) | unknown) | | | | | | [facility] | | | | + + + + +---------+ + + + + | Result panel 274 | + + + + + + +---------+ + + | (unknown) | (no date) | (unknown) | [facility] | (no | (units | (unknown) | | | | | [facility] | value) | unknown) | | | | | | [facility] | | | | + + + + +---------+ + + + + | Result panel 275 | + + + + + + +---------+ + + | (unknown) | (no date) | (unknown) | [facility] | (no | (units | (unknown) | | | | | [facility] | value) | unknown) | | | | | | [facility] | | | | + + + + +---------+ + + + + | Result panel 276 | + + + + + + +---------+ + + | (unknown) | (no date) | (unknown) | [facility] | (no | (units | (unknown) | | | | | [facility] | value) | unknown) | | | | | | [facility] | | | | + + + + +---------+ + + + + | Result panel 277 | + + + + + + +---------+ + + | (unknown) | (no date) | (unknown) | [facility] | (no | (units | (unknown) | | | | | [facility] | value) | unknown) | | | | | | [facility] | | | | + + + + +---------+ + + + + | Result panel 278 | + + + + + + +---------+ + + | (unknown) | (no date) | (unknown) | [facility] | (no | (units | (unknown) | | | | | [facility] | value) | unknown) | | | | | | [facility] | | | | + + + + +---------+ + + + + | Result panel 279 | + + + + + + +---------+ + + | (unknown) | (no date) | (unknown) | [facility] | (no | (units | (unknown) | | | | | [facility] | value) | unknown) | | | | | | [facility], | | | | | | | | [facility] | | | | + + + + +---------+ + + + + | Result panel 280 | + + + + + + +---------+ + + | (unknown) | (no date) | (unknown) | [facility] | (no | (units | (unknown) | | | | | [facility] | value) | unknown) | | | | | [facility] | | | | + + + + +---------+ + + + + | Result panel 281 | + + + + + + +---------+ + + | (unknown) | (no date) | (unknown) | [facility] | (no | (units | (unknown) | | | | | [facility] | value) | unknown) | | | | | | [facility] | | | | + + + + +---------+ + + + + | Result panel 282 | + + + + + + +---------+ + + | (unknown) | (no date) | (unknown) | [facility] | (no | (units | (unknown) | | | | | [facility] | value) | unknown) | | | | | | [facility] | | | | + + + + +---------+ + + + + | Result panel 283 | + + + + + + +---------+ + + | (unknown) | (no date) | (unknown) | [facility] | (no | (units | (unknown) | | | | | [facility] | value) | unknown) | | | | | | [facility] | | | | + + + + +---------+ + + + + | Result panel 284 | + + + + + + +---------+ + + | (unknown) | (no date) | (unknown) | [facility] | (no | (units | (unknown) | | | | | [facility] | value) | unknown) | | | | | | [facility] | | | | + + + + +---------+ + + + + | Result panel 285 | + + + + + + +---------+ + + | (unknown) | (no date) | (unknown) | [facility] | (no | (units | (unknown) | | | | | [facility] | value) | unknown) | | | | | | [facility] | | | | + + + + +---------+ + + + + | Result panel 286 | + + + + + + +---------+ + + | (unknown) | (no date) | (unknown) | [facility] | (no | (units | (unknown) | | | | | [facility] | value) | unknown) | | | | | | [facility] | | | | + + + + +---------+ + + + + | Result panel 287 | + + + + + + +---------+ + + | (unknown) | (no date) | (unknown) | [facility] | (no | (units | (unknown) | | | | | [facility] | value) | unknown) | | | | | | [facility] | | | | + + + + +---------+ + + + + | Result panel 288 | + + + + + + +---------+ + + | (unknown) | (no date) | (unknown) | [facility] | (no | (units | (unknown) | | | | | [facility] | value) | unknown) | | | | | | [facility] | | | | + + + + +---------+ + + + + | Result panel 289 | + + + + + + +---------+ + + | (unknown) | (no date) | (unknown) | [facility] | (no | (units | (unknown) | | | | [facility] | value) | unknown) | | | | | [facility] | | | | + + + + +---------+ + + + + | Result panel 290 | + + + + + + +---------+ + + | (unknown) | (no date) | (unknown) | [facility] | (no | (units | (unknown) | | | | | [facility] | value) | unknown) | | | | | | [facility] | | | | | | [facility] | | | | + + + + +---------+ + + + + | Result panel 291 | + + + + + + +---------+ + + | (unknown) | (no date) | (unknown) | [facility] | (no | (units | (unknown) | | | | | [facility] | value) | unknown) | | | | | [facility] | | | | + + + + +---------+ + + + + | Result panel 292 | + + + + + + +---------+ + + | (unknown) | (no date) | (unknown) | [facility] | (no | (units | (unknown) | | | | | [facility] | value) | unknown) | | | | | [facility] | | | | + + + + +---------+ + + + + | Result panel 293 | + + + + + + +---------+ + + | (unknown) | (no date) | (unknown) | [facility] | (no | (units | (unknown) | | | | | [facility] | value) | unknown) | | | | | [facility] | | | | + + + + +---------+ + + + + | Result panel 294 | + + + + + + +---------+ + + | (unknown) | (no date) | (unknown) | [facility] | (no | (units | (unknown) | | | | | [facility] | value) | unknown) | | | | | [facility] | | | | + + + + +---------+ + + + + | Result panel 295 | + + + + + + +---------+ + + | (unknown) | (no date) | (unknown) | [facility] | (no | (units | (unknown) | | | | | [facility] | value) | unknown) | | | | | [facility] | | | | + + + + +---------+ + + + + | Result panel 296 | + + + + + + +---------+ + + | (unknown) | (no date) | (unknown) | [facility] | (no | (units | (unknown) | | | [facility] | [facility] | | | [facility] | | | | + + + + +---------+ + + + + | Result panel 297 | + + + + + + +---------+ + + | (unknown) | (no date) | (unknown) | [facility] | (no | (units | (unknown) | | | | [facility] | value) | unknown) | | | | [facility] | | | | + + + + +---------+ + + + + | Result panel 298 | + + + + + + +---------+ + + | (unknown) | (no date) | (unknown) | [facility] | (no | (units | (unknown) | | | | | [facility] | value) | unknown) | | | [facility] | | | | + + + + +---------+ + + + + | Result panel 299 | + + + + + + +---------+ + + | (unknown) | (no date) | (unknown) | [facility] | (no | (units | (unknown) | | | | | [facility] | value) | unknown) | | | [facility] | | | | + + + + +---------+ + + + + | Result panel 300 | + + + + + + +---------+ + + | (unknown) | (no date) | (unknown) | [facility] | (no | (units | (unknown) | | | | | [facility] | value) | unknown) | | | [facility] | | | | + + + + +---------+ + + + + | Result panel 301 | + + + + + + +---------+ + + | (unknown) | (no date) | (unknown) | [facility] | (no | (units | (unknown) | | | | | [facility] | value) | unknown) | | | | | | [facility] | | | | | [facility] | | | | + + + + +---------+ + + + + | Result panel 302 | + + + + + + +---------+ + + | (unknown) | (no date) | (unknown) | [facility] | (no | (units | (unknown) | | | | [facility] | value[facility] | [facility]) | | | [facility] | | | | + + + + +---------+ + + + + | Result panel 303 | + + + + + + +---------+ + + | (unknown) | (no date) | (unknown) | [facility] | (no | (units | (unknown) | | | | | [facility] | value) | unknown) | | | [facility] | | | | + + + + +---------+ + + + + | Result panel 304 | + + + + + + +---------+ + + | (unknown) | (no date) | (unknown) | [facility] | (no | (units | (unknown) | | | | [facility] | value) | unknown) | | | [facility] | | | | + + + + +---------+ + + + + | Result panel 305 | + + + + + + +---------+ + + | (unknown) | (no date) | (unknown) | [facility] | (no | (units | (unknown) | | | | | [facility] | value) | unknown) | | | [facility] | | | | + + + + +---------+ + + + + | Result panel 306 | + + + + + + +---------+ + + | (unknown) | (no date) | (unknown) | [facility] | (no | (units | (unknown) | | | | | [facility] | value) | unknown) | | | [facility] | | | | + + + + +---------+ + + + + | Result panel 307 | + + + + + + +---------+ + + | (unknown) | (no date) | (unknown) | [facility] | (no | (units | (unknown) | | | | | [facility] | value) | unknown) | | | | [facility] | | | | + + + + +---------+ + + + + | Result panel 308 | + + + + + + +---------+ + + | (unknown) | (no date) | (unknown) | [facility] | (no | (units | (unknown) | | | | | [facility] | value) | unknown) | | | | [facility] | | | | + + + + +---------+ + + + + | Result panel 309 | + + + + + + +---------+ + + | (unknown) | (no date) | (unknown) | [facility] | (no | (units | (unknown) | | | | | [facility] | value) | unknown) | | | | [facility] | | | | + + + + +---------+ + + + + | Result panel 310 | + + + + + + +---------+ + + | (unknown) | (no date) | (unknown) | [facility] | (no | (units | (unknown) | | | | | [facility] | value) | unknown) | | | | | | [facility] | | | | | | [facility] | | | | + + + + +---------+ + + + + | Result panel 311 | + + + + + + +---------+ + + | (unknown) | (no date) | (unknown) | [facility] | (no | (units | (unknown) | | | | | [facility] | value) | unknown) | | | | | | [facility] | [facility] | | | | | | [facility] | | | | + + + + +---------+ + + + + | Result panel 312 | + + + + + + +---------+ + + | (unknown) | (no date) | (unknown) | [facility] | (no | (units | (unknown) | | | | | [facility] | value) | unknown) | | | | | | [facility] | [facility] | | | | | | [facility] | | | | + + + + +---------+ + + + + | Result panel 313 | + + + + + + +---------+ + + | (unknown) | (no date) | (unknown) | [facility] | (no | (units | (unknown) | | | | | [facility] | value) | unknown) | | | | | | [facility] | | | | | | | | [facility] | | | | + + + + +---------+ + + + + | Result panel 314 | + + + + + + +---------+ + + | (unknown) | (no date) | (unknown) | [facility] | (no | (units | (unknown) | | | | | [facility] | value) | unknown) | | | | | | [facility] | | | | | | | | [facility] | | | | + + + + +---------+ + + + + | Result panel 315 | + + + + + + +---------+ + + | (unknown) | (no date) | (unknown) | [facility] | (no | (units | (unknown) | | | | | [facility] | value) | unknown) | | | | | | [facility] | | | | | | | | [facility] | | | | + + + + +---------+ + + + + | Result panel 316 | + + + + + + +---------+ + + | (unknown) | (no date) | (unknown) | [facility] | (no | (units | (unknown) | | | | | [facility] | value) | unknown) | | | | | | [facility] | | | | | | | | [facility] | | | | + + + + +---------+ + + + + | Result panel 317 | + + + + + + +---------+ + + | (unknown) | (no date) | (unknown) | [facility] | (no | (units | (unknown) | | | | | [facility] | value) | unknown) | | | | | | [facility] | | | | | | | | [facility] | | | | + + + + +---------+ + + + + | Result panel 318 | + + + + + + +---------+ + + | (unknown) | (no date) | (unknown) | [facility] | (no | (units | (unknown) | | | | | [facility] | value) | unknown) | | | | | | [facility] | | | | | | | | [facility] | | | | + + + + +---------+ + + + + | Result panel 319 | + + + + + + +---------+ + + | (unknown) | (no date) | (unknown) | [facility] | (no | (units | (unknown) | | | | | [facility] | value) | unknown) | | | | | | [facility] | | | | | | | | [facility] | | | | + + + + +---------+ + + + + | Result panel 320 | + + + + + + +---------+ + + | (unknown) | (no date) | (unknown) | [facility] | (no | (units | (unknown) | | | | | [facility] | value) | unknown) | | | | | | [facility] | | | | | | | | [facility] | | | | + + + + +---------+ + + + + | Result panel 321 | + + + + + + +---------+ + + | (unknown) | (no date) | (unknown) | [facility] | (no | (units | (unknown) | | | | | [facility] | value) | unknown) | | | | | | [facility] | | | | | | | | [facility] | | | | + + + + +---------+ + + + + | Result panel 322 | + + + + + + +---------+ + + | (unknown) | (no date) | (unknown) | [facility] | (no | (units | (unknown) | | | | | [facility] | value) | unknown) | | | | | | [facility] | | | | | | | | [facility] | | | | + + + + +---------+ + + + + | Result panel 323 | + + + + + + +---------+ + + | (unknown) | (no date) | (unknown) | [facility] | (no | (units | (unknown) | | | | | [facility] | value) | unknown) | | | | | | [facility] | | | | | | | | [facility] | | | | + + + + +---------+ + + + + | Result panel 324 | + + + + + + +---------+ + + | (unknown) | (no date) | (unknown) | [facility] | (no | (units | (unknown) | | | | | [facility] | value) | unknown) | | | | | | [facility], | | | | | | | | [facility] | | | | + + + + +---------+ + + + + | Result panel 325 | + + + + + + +---------+ + + | (unknown) | (no date) | (unknown) | [facility] | (no | (units | (unknown) | | | | | [facility] | value) | unknown) | | | | | | [facility], | | | | | | | | [facility] | | | | + + + + +---------+ + + + + | Result panel 326 | + + + + + + +---------+ + + | (unknown) | (no date) | (unknown) | [facility] | (no | (units | (unknown) | | | | | [facility] | value) | unknown) | | | | | | [facility], | | | | | | | | [facility] | | | | + + + + +---------+ + + + + | Result panel 327 | + + + + + + +---------+ + + | (unknown) | (no date) | (unknown) | [facility] | (no | (units | (unknown) | | | | | [facility] | value) | unknown) | | | | | | [facility], | | | | | | | | [facility] | | | | + + + + +---------+ + + + + | Result panel 328 | + + + + + + +---------+ + + | (unknown) | (no date) | (unknown) | [facility] | (no | (units | (unknown) | | | | | [facility] | value) | unknown) | | | | | | [facility], | | | | | | | | [facility] | | | | + + + + +---------+ + + + + | Result panel 329 | + + + + + + +---------+ + + | (unknown) | (no date) | (unknown) | [facility] | (no | (units | (unknown) | | | | | [facility] | value) | unknown) | | | | | | [facility], | | | | | | | | [facility] | | | | + + + + +---------+ + + + + | Result panel 330 | + + + + + + +---------+ + + | (unknown) | (no date) | (unknown) | [facility] | (no | (units | (unknown) | | | | | [facility] | value) | unknown) | | | | | | [facility] | | | | | | | | [facility] | | | | + + + + +---------+ + + + + | Result panel 331 | + + + + + + +---------+ + + | (unknown) | (no date) | (unknown) | [facility] | (no | (units | (unknown) | | | | | [facility] | value) | unknown) | | | | | | [facility] | | | | | | | | [facility] | | | | + + + + +---------+ + + + + | Result panel 332 | + + + + + + +---------+ + + | (unknown) | (no date) | (unknown) | [facility] | (no | (units | (unknown) | | | | | [facility] | value) | unknown) | | | | | | [facility] | | | | | | | | [facility] | | | | + + + + +---------+ + + + + | Result panel 333 | + + + + + + +---------+ + + | (unknown) | (no date) | (unknown) | [facility] | (no | (units | (unknown) | | | | | [facility] | value) | unknown) | | | | | | [facility] | | | | | | | | [facility] | | | | + + + + +---------+ + + + + | Result panel 334 | + + + + + + +---------+ + + | (unknown) | (no date) | (unknown) | [facility] | (no | (units | (unknown) | | | | | [facility] | value) | unknown) | | | | | | [facility] | | | | | | | | [facility] | | | | + + + + +---------+ + + + + | Result panel 335 | + + + + + + +---------+ + + | (unknown) | (no date) | (unknown) | [facility] | (no | (units | (unknown) | | | | | [facility] | value) | unknown) | | | | | | [facility] | | | | | | | | [facility] | | | | + + + + +---------+ + + + + | Result panel 336 | + + + + + + +---------+ + + | (unknown) | (no date) | (unknown) | [facility] | (no | (units | (unknown) | | | | | [facility] | value) | unknown) | | | | | | [facility] | | | | | | | | [facility] | | | | + + + + +---------+ + + + + | Result panel 337 | + + + + + + +---------+ + + | (unknown) | (no date) | (unknown) | [facility] | (no | (units | (unknown) | | | | | [facility] | value) | unknown) | | | | | | [facility], | | | | | | | | [facility] | | | | + + + + +---------+ + + + + | Result panel 338 | + + + + + + +---------+ + + | (unknown) | (no date) | (unknown) | [facility] | (no | (units | (unknown) | | | | | [facility] | value) | unknown) | | | | | | [facility], | | | | | | | | [facility] | | | | + + + + +---------+ + + + + | Result panel 339 | + + + + + + +---------+ + + | (unknown) | (no date) | (unknown) | [facility] | (no | (units | (unknown) | | | | | [facility] | value) | unknown) | | | | | | [facility], | | | | | | | | [facility] | | | | + + + + +---------+ + + + + | Result panel 340 | + + + + + + +---------+ + + | (unknown) | (no date) | (unknown) | [facility] | (no | (units | (unknown) | | | | | [facility] | value) | unknown) | | | | | | [facility], | | | | | | | | [facility] | | | | + + + + +---------+ + + + + | Result panel 341 | + + + + + + +---------+ + + | (unknown) | (no date) | (unknown) | [facility] | (no | (units | (unknown) | | | | | [facility] | value) | unknown) | | | | | | [facility], | | | | | | | | [facility] | | | | + + + + +---------+ + + + + | Result panel 342 | + + + + + + +---------+ + + | (unknown) | (no date) | (unknown) | [facility] | (no | (units | (unknown) | | | | | [facility] | value) | unknown) | | | | | | [facility], | | | | | | | | [facility] | | | | + + + + +---------+ + + + + | Result panel 343 | + + + + + + +---------+ + + | (unknown) | (no date) | (unknown) | [facility] | (no | (units | (unknown) | | | | | [facility] | value) | unknown) | | | | | | [facility], | | | | | | | | [facility] | | | | + + + + +---------+ + + + + | Result panel 344 | + + + + + + +---------+ + + | (unknown) | (no date) | (unknown) | [facility] | (no | (units | (unknown) | | | | | [facility] | value) | unknown) | | | | | | [facility], | | | | | | | | [facility] | | | | + + + + +---------+ + + + + | Result panel 345 | + + + + + + +---------+ + + | (unknown) | (no date) | (unknown) | [facility] | (no | (units | (unknown) | | | | | [facility] | value) | unknown) | | | | | | [facility], | | | | | | | | [facility] | | | | + + + + +---------+ + + + + | Result panel 346 | + + + + + + +---------+ + + | (unknown) | (no date) | (unknown) | [facility] | (no | (units | (unknown) | | | | | [facility] | value) | unknown) | | | | | | [facility], | | | | | | | | [facility] | | | | + + + + +---------+ + + + + | Result panel 347 | + + + + + + +---------+ + + | (unknown) | (no date) | (unknown) | [facility] | (no | (units | (unknown) | | | | | [facility] | value) | unknown) | | | | | | [facility], | | | | | | | | [facility] | | | | + + + + +---------+ + + + + | Result panel 348 | + + + + + + +---------+ + + | (unknown) | (no date) | (unknown) | [facility] | (no | (units | (unknown) | | | | | [facility] | value) | unknown) | | | | | | [facility], | | | | | | | | [facility] | | | | + + + + +---------+ + + + + | Result panel 349 | + + + + + + +---------+ + + | (unknown) | (no date) | (unknown) | [facility] | (no | (units | (unknown) | | | | | [facility] | value) | unknown) | | | | | | [facility], | | | | | | | | [facility] | | | | + + + + +---------+ + + + + | Result panel 350 | + + + + + + +---------+ + + | (unknown) | (no date) | (unknown) | [facility] | (no | (units | (unknown) | | | | | [facility] | value) | unknown) | | | | | | [facility], | | | | | | | | [facility] | | | | + + + + +---------+ + + + + | Result panel 351 | + + + + + + +---------+ + + | (unknown) | (no date) | (unknown) | [facility] | (no | (units | (unknown) | | | | | [facility] | value) | unknown) | | | | | | [facility], | | | | | | | | [facility] | | | | + + + + +---------+ + + + + | Result panel 352 | + + + + + + +---------+ + + | (unknown) | (no date) | (unknown) | [facility] | (no | (units | (unknown) | | | | | [facility] | value) | unknown) | | | | | | [facility], | | | | | | | | [facility] | | | | + + + + +---------+ + + + + | Result panel 353 | + + + + + + +---------+ + + | (unknown) | (no date) | (unknown) | [facility] | (no | (units | (unknown) | | | | | [facility] | value) | unknown) | | | | | | [facility], | | | | | | | | [facility] | | | | + + + + +---------+ + + + + | Result panel 354 | + + + + + + +---------+ + + | (unknown) | (no date) | (unknown) | [facility] | (no | (units | (unknown) | | | | | [facility] | value) | unknown) | | | | | | [facility], | | | | | | | | [facility] | | | | + + + + +---------+ + + + + | Result panel 355 | + + + + + + +---------+ + + | (unknown) | (no date) | (unknown) | [facility] | (no | (units | (unknown) | | | | | [facility] | value) | unknown) | | | | | | [facility], | | | | | | | | [facility] | | | | + + + + +---------+ + + + + | Result panel 356 | + + + + + + +---------+ + + | (unknown) | (no date) | (unknown) | [facility] | (no | (units | (unknown) | | | | | [facility] | value) | unknown) | | | | | | [facility], | | | | | | | | [facility] | | | | + + + + +---------+ + + + + | Result panel 357 | + + + + + + +---------+ + + | (unknown) | (no date) | (unknown) | [facility] | (no | (units | (unknown) | | | | | [facility] | value) | unknown) | | | | | | [facility], | | | | | | | | [facility] | | | | + + + + +---------+ + + + + | Result panel 358 | + + + + + + +---------+ + + | (unknown) | (no date) | (unknown) | [facility] | (no | (units | (unknown) | | | | | [facility] | value) | unknown) | | | | | | [facility], | | | | | | | | [facility] | | | | + + + + +---------+ + + + + | Result panel 359 | + + + + + + +---------+ + + | (unknown) | (no date) | (unknown) | [facility] | (no | (units | (unknown) | | | | | [facility] | value) | unknown) | | | | | | [facility], | | | | | | | | [facility] | | | | + + + + +---------+ + + + + | Result panel 360 | + + + + + + +---------+ + + | (unknown) | (no date) | (unknown) | [facility] | (no | (units | (unknown) | | | | | [facility] | value) | unknown) | | | | | | [facility], | | | | | | | | [facility] | | | | + + + + +---------+ + + + + | Result panel 361 | + + + + + + +---------+ + + | (unknown) | (no date) | (unknown) | [facility] | (no | (units | (unknown) | | | | | [facility] | value) | unknown) | | | | | | [facility], | | | | | | | | [facility] | | | | + + + + +---------+ + + + + | Result panel 362 | + + + + + + +---------+ + + | (unknown) | (no date) | (unknown) | [facility] | (no | (units | (unknown) | | | | | [facility] | value) | unknown) | | | | | | [facility], | | | | | | | | [facility] | | | | + + + + +---------+ + + + + | Result panel 363 | + + + + + + +---------+ + + | (unknown) | (no date) | (unknown) | [facility] | (no | (units | (unknown) | | | | | [facility] | value) | unknown) | | | | | | [facility], | | | | | | | | [facility] | | | | + + + + +---------+ + + + + | Result panel 364 | + + + + + + +---------+ + + | (unknown) | (no date) | (unknown) | [facility] | (no | (units | (unknown) | | | | | [facility] | value) | unknown) | | | | | | [facility], | | | | | | | | [facility] | | | | + + + + +---------+ + + + + | Result panel 365 | + + + + + + +---------+ + + | (unknown) | (no date) | (unknown) | [facility] | (no | (units | (unknown) | | | | | [facility] | value) | unknown) | | | | | | [facility], | | | | | | | | [facility] | | | | + + + + +---------+ + + + + | Result panel 366 | + + + + + + +---------+ + + | (unknown) | (no date) | (unknown) | [facility] | (no | (units | (unknown) | | | | | [facility] | value) | unknown) | | | | | | [facility], | | | | | | | | [facility] | | | | + + + + +---------+ + + + + | Result panel 367 | + + + + + + +---------+ + + | (unknown) | (no date) | (unknown) | [facility] | (no | (units | (unknown) | | | | | [facility] | value) | unknown) | | | | | | [facility], | | | | | | | | [facility] | | | | + + + + +---------+ + + + + | Result panel 368 | + + + + + + +---------+ + + | (unknown) | (no date) | (unknown) | [facility] | (no | (units | (unknown) | | | | | [facility] | value) | unknown) | | | | | | [facility], | | | | | | | | [facility] | | | | + + + + +---------+ + + + + | Result panel 369 | + + + + + + +---------+ + + | (unknown) | (no date) | (unknown) | [facility] | (no | (units | (unknown) | | | | | [facility] | value) | unknown) | | | | | | [facility], | | | | | | | | [facility] | | | | + + + + +---------+ + + + + | Result panel 370 | + + + + + + +---------+ + + | (unknown) | (no date) | (unknown) | [facility] | (no | (units | (unknown) | | | | | [facility] | value) | unknown) | | | | | | [facility], | | | | | | | | [facility] | | | | + + + + +---------+ + + + + | Result panel 371 | + + + + + + +---------+ + + | (unknown) | (no date) | (unknown) | [facility] | (no | (units | (unknown) | | | | | [facility] | value) | unknown) | | | | | | [facility], | | | | | | | | [facility] | | | | + + + + +---------+ + + + + | Result panel 372 | + + + + + + +---------+ + + | (unknown) | (no date) | (unknown) | [facility] | (no | (units | (unknown) | | | | | [facility] | value) | unknown) | | | | | | [facility], | | | | | | | | [facility] | | | | + + + + +---------+ + + + + | Result panel 373 | + + + + + + +---------+ + + | (unknown) | (no date) | (unknown) | [facility] | (no | (units | (unknown) | | | | | [facility] | value) | unknown) | | | | | | [facility], | | | | | | | | [facility] | | | | + + + + +---------+ + + + + | Result panel 374 | + + + + + + +---------+ + + | (unknown) | (no date) | (unknown) | [facility] | (no | (units | (unknown) | | | | | [facility] | value) | unknown) | | | | | | [facility], | | | | | | | | [facility] | | | | + + + + +---------+ + + + + | Result panel 375 | + + + + + + +---------+ + + | (unknown) | (no date) | (unknown) | [facility] | (no | (units | (unknown) | | | | | [facility] | value) | unknown) | | | | | | [facility], | | | | | | | | [facility] | | | | + + + + +---------+ + + + + | Result panel 376 | + + + + + + +---------+ + + | (unknown) | (no date) | (unknown) | [facility] | (no | (units | (unknown) | | | | | [facility] | value) | unknown) | | | | | | [facility], | | | | | | | | [facility] | | | | + + + + +---------+ + + + + | Result panel 377 | + + + + + + +---------+ + + | (unknown) | (no date) | (unknown) | [facility] | (no | (units | (unknown) | | | | | [facility] | value) | unknown) | | | | | | [facility], | | | | | | | | [facility] | | | | + + + + +---------+ + + + + | Result panel 378 | + + + + + + +---------+ + + | (unknown) | (no date) | (unknown) | [facility] | (no | (units | (unknown) | | | | | [facility] | value) | unknown) | | | | | | [facility], | | | | | | | | [facility] | | | | + + + + +---------+ + + + + | Result panel 379 | + + + + + + +---------+ + + | (unknown) | (no date) | (unknown) | [facility] | (no | (units | (unknown) | | | | | [facility] | value) | unknown) | | | | | | [facility], | | | | | | | | [facility] | | | | + + + + +---------+ + + + + | Result panel 380 | + + + + + + +---------+ + + | (unknown) | (no date) | (unknown) | [facility] | (no | (units | (unknown) | | | | [facility] | value) | unknown) | | | | [facility] | | | | + + + + +---------+ + + + + | Result panel 381 | + + + + + + +---------+ + + | (unknown) | (no date) | (unknown) | [facility] | (no | (units | (unknown) | | | | | [facility] | value) | unknown) | | | | | | [facility], | | | | | | | | [facility] | | | | + + + + +---------+ + + + + | Result panel 382 | + + + + + + +---------+ + + | (unknown) | (no date) | (unknown) | [facility] | (no | (units | (unknown) | | | | | [facility] | value) | unknown) | | | | | [facility] | | | | + + + + +---------+ + + + + | Result panel 383 | + + + + + + +---------+ + + | (unknown) | (no date) | (unknown) | [facility] | (no | (units | (unknown) | | | | | [facility] | value) | unknown) | | | | | [facility] | | | | + + + + +---------+ + + + + | Result panel 384 | + + + + + + +---------+ + + | (unknown) | (no date) | (unknown) | [facility] | (no | (units | (unknown) | | | | | [facility] | value) | unknown) | | | | | [facility] | | | | + + + + +---------+ + + + + | Result panel 385 | + + + + + + +---------+ + + | (unknown) | (no date) | (unknown) | [facility] | (no | (units | (unknown) | | | | | [facility] | value) | unknown) | | | | | [facility] | | | | + + + + +---------+ + + + + | Result panel 386 | + + + + + + +---------+ + + | (unknown) | (no date) | (unknown) | [facility] | (no | (units | (unknown) | | | | | [facility] | value) | unknown) | | | | | [facility] | | | | + + + + +---------+ + + + + | Result panel 387 | + + + + + + +---------+ + + | (unknown) | (no date) | (unknown) | [facility] | (no | (units | (unknown) | | | | [facility] | value) | unknown) | | | | | [facility] | | | | + + + + +---------+ + + + + | Result panel 388 | + + + + + + +---------+ + + | (unknown) | (no date) | (unknown) | [facility] | (no | (units | (unknown) | | | | [facility] | value) | unknown) | | | | | [facility] | | | | + + + + +---------+ + + + + | Result panel 389 | + + + + + + +---------+ + + | (unknown) | (no date) | (unknown) | [facility] | (no | (units | (unknown) | | | | [facility] | value) | unknown) | | | | | [facility] | | | | + + + + +---------+ + + + + | Result panel 390 | + + + + + + +---------+ + + | (unknown) | (no date) | (unknown) | [facility] | (no | (units | (unknown) | | | | | [facility] | value) | unknown) | | | | | [facility] | | | | + + + + +---------+ + + + + | Result panel 391 | + + + + + + +---------+ + + | (unknown) | (no date) | (unknown) | [facility] | (no | (units | (unknown) | | | | | [facility] | value) | unknown) | | | | | [facility] | | | | + + + + +---------+ + + + + | Result panel 392 | + + + + + + +---------+ + + | (unknown) | (no date) | (unknown) | [facility] | (no | (units | (unknown) | | | | | [facility] | value) | unknown) | | | | | | [facility] | | | | | | [facility] | | | | + + + + +---------+ + + + + | Result panel 393 | + + + + + + +---------+ + + | (unknown) | (no date) | (unknown) | [facility] | (no | (units | (unknown) | | | | | [facility] | value) | unknown) | | | | | [facility] | | | | + + + + +---------+ + + + + | Result panel 394 | + + + + + + +---------+ + + | (unknown) | (no date) | (unknown) | [facility] | (no | (units | (unknown) | | | | | [facility] | value) | unknown) | | | | | [facility] | | | | + + + + +---------+ + + + + | Result panel 395 | + + + + + + +---------+ + + | (unknown) | (no date) | (unknown) | [facility] | (no | (units | (unknown) | | | | | [facility] | value) | unknown) | | | | | [facility] | | | | + + + + +---------+ + + + + | Result panel 396 | + + + + + + +---------+ + + | (unknown) | (no date) | (unknown) | [facility] | (no | (units | (unknown) | | | | | [facility] | value) | unknown) | | | | | [facility] | | | | + + + + +---------+ + + + + | Result panel 397 | + + + + + + +---------+ + + | (unknown) | (no date) | (unknown) | [facility] | (no | (units | (unknown) | | | | | [facility] | value) | unknown) | | | | | | [facility] | | | | + + + + +---------+ + + + + | Result panel 398 | + + + + + + +---------+ + + | (unknown) | (no date) | (unknown) | [facility] | (no | (units | (unknown) | | | | | [facility] | value) | unknown) | | | | | | [facility] | | | | + + + + +---------+ + + + + | Result panel 399 | + + + + + + +---------+ + + | (unknown) | (no date) | (unknown) | [facility] | (no | (units | (unknown) | | | | | [facility] | value) | unknown) | | | | | [facility] | | | | + + + + +---------+ + + + + | Result panel 400 | + + + + + + +---------+ + + | (unknown) | (no date) | (unknown) | [facility] (no | (units | (unknown) | | | [facility] value[facility] | [facility] | | | | [facility] | | | | + + + + +---------+ + + + + | Result panel 401 | + + + + + + +---------+ + + | (unknown) | (no date) | (unknown) | [facility] | (no | (units | (unknown) | | | | [facility] | value) | unknown) | | | | | [facility] | | | | + + + + +---------+ + + + + | Result panel 402 | + + + + + + +---------+ + + | (unknown) | (no date) | (unknown) | [facility] | (no | (units | (unknown) | | | | [facility] | value) | unknown) | | | | | [facility] | | | | + + + + +---------+ + + + + | Result panel 403 | + + + + + + +---------+ + + | (unknown) | (no date) | (unknown) | [facility] | (no | (units | (unknown) | | | | | [facility] | value) | unknown) | | | | | | [facility] | | | | | | | [facility] | | | | + + + + +---------+ + + + + | Result panel 404 | + + + + + + +---------+ + + | (unknown) | (no date) | (unknown) | [facility] | (no | (units | (unknown) | | | | | [facility] | value) | unknown) | | | | | [facility] | | | | + + + + +---------+ + + + + | Result panel 405 | + + + + + + +---------+ + + | (unknown) | (no date) | (unknown) | [facility] | (no | (units | (unknown) | | | | | [facility] | value) | unknown) | | | | | [facility] | | | | + + + + +---------+ + + + + | Result panel 406 | + + + + + + +---------+ + + | (unknown) | (no date) | (unknown) | [facility] | (no | (units | (unknown) | | | | | [facility] | value) | unknown) | | | | | [facility] | | | | + + + + +---------+ + + + + | Result panel 407 | + + + + + + +---------+ + + | (unknown) | (no date) | (unknown) | [facility] | (no | (units | (unknown) | | | | | [facility] | value) | unknown) | | | | | [facility] | | | | + + + + +---------+ + + + + | Result panel 408 | + + + + + + +---------+ + + | (unknown) | (no date) | (unknown) | [facility] | (no | (units | (unknown) | | | | | [facility] | value) | unknown) | | | | | [facility] | | | | + + + + +---------+ + + + + | Result panel 409 | + + + + + + +---------+ + + | (unknown) | (no date) | (unknown) | [facility] | (no | (units | (unknown) | | | | | [facility] | value) | unknown) | | | | | [facility] | | | | + + + + +---------+ + + + + | Result panel 410 | + + + + + + +---------+ + + | (unknown) | (no date) | (unknown) | [facility] | (no | (units | (unknown) | | | | | [facility] | value) | unknown) | | | | | [facility] | | | | + + + + +---------+ + + + + | Result panel 411 | + + + + + + +---------+ + + | (unknown) | (no date) | (unknown) | [facility] | (no | (units | (unknown) | | | | | [facility] | value) | unknown) | | | | | [facility] | | | | + + + + +---------+ + + + + | Result panel 412 | + + + + + + +---------+ + + | (unknown) | (no date) | (unknown) | [facility] | (no | (units | (unknown) | | | | | [facility] | value) | unknown) | | | | | [facility] | | | | + + + + +---------+ + + + + | Result panel 413 | + + + + + + +---------+ + + | (unknown) | (no date) | (unknown) | [facility] | (no | (units | (unknown) | | | | | [facility] | value) | unknown) | | | | | [facility] | | | | + + + + +---------+ + + + + | Result panel 414 | + + + + + + +---------+ + + | (unknown) | (no date) | (unknown) | [facility] | (no | (units | (unknown) | | | | | [facility] | value) | unknown) | | | | | | [facility] | | | | | | [facility] | | | | + + + + +---------+ + + + + | Result panel 415 | + + + + + + +---------+ + + | (unknown) | (no date) | (unknown) | [facility] | (no | (units | (unknown) | | | | | [facility] | value) | unknown) | | | | | [facility] | | | | + + + + +---------+ + + + + | Result panel 416 | + + + + + + +---------+ + + | (unknown) | (no date) | (unknown) | [facility] | (no | (units | (unknown) | | | | | [facility] | value) | unknown) | | | | | [facility] | | | | + + + + +---------+ + + + + | Result panel 417 | + + + + + + +---------+ + + | (unknown) | (no date) | (unknown) | [facility] | (no | (units | (unknown) | | | | | [facility] | value) | unknown) | | | | | [facility] | | | | + + + + +---------+ + + + + | Result panel 418 | + + + + + + +---------+ + + | (unknown) | (no date) | (unknown) | [facility] | (no | (units | (unknown) | | | | | [facility] | value) | unknown) | | | | | [facility] | | | | + + + + +---------+ + + + + | Result panel 419 | + + + + + + +---------+ + + | (unknown) | (no date) | (unknown) | [facility] | (no | (units | (unknown) | | | | | [facility] | value) | unknown) | | | | | [facility] | | | | + + + + +---------+ + + + + | Result panel 420 | + + + + + + +---------+ + + | (unknown) | (no date) | (unknown) | [facility] | (no | (units | (unknown) | | | | | [facility] | value) | unknown) | | | | | [facility] | | | | + + + + +---------+ + + + + | Result panel 421 | + + + + + + +---------+ + + | (unknown) | (no date) | (unknown) | [facility] | (no | (units | (unknown) | | [facility] | | [facility] | value) | unknown) | | | | [facility] | | | | + + + + +---------+ + + + + | Result panel 422 | + + + + + + +---------+ + + | (unknown) | (no date) | (unknown) | [facility] | (no | (units | (unknown) | | | | | [facility] | value) | unknown) | | | | [facility] | | | | + + + + +---------+ + + + + | Result panel 423 | + + + + + + +---------+ + + | (unknown) | (no date) | (unknown) | [facility] | (no | (units | (unknown) | | | | | [facility] | value) | unknown) | | | | | [facility] | | | | + + + + +---------+ + + + + | Result panel 424 | + + + + + + +---------+ + + | (unknown) | (no date) | (unknown) | [facility] | (no | (units | (unknown) | | | | | [facility] | value) | unknown) | | | | | [facility] | | | | + + + + +---------+ + + + + | Result panel 425 | + + + + + + +---------+ + + | (unknown) | (no date) | (unknown) | [facility] | (no | (units | (unknown) | | | | | [facility] | value) | unknown) | | | | | | [facility] | | | | | | [facility] | | | | + + + + +---------+ + + + + | Result panel 426 | + + + + + + +---------+ + + | (unknown) | (no date) | (unknown) | [facility] | (no | (units | (unknown) | | | | | [facility] | value) | unknown) | | | | | [facility] | | | | + + + + +---------+ + + + + | Result panel 427 | + + + + + + +---------+ + + | (unknown) | (no date) | (unknown) | [facility] | (no | (units | (unknown) | | | | | [facility] | value) | unknown) | | | | | [facility] | | | | + + + + +---------+ + + + + | Result panel 428 | + + + + + + +---------+ + + | (unknown) | (no date) | (unknown) | [facility] | (no | (units | (unknown) | | | | | [facility] | value) | unknown) | | | | | [facility] | | | | + + + + +---------+ + + + + | Result panel 429 | + + + + + + +---------+ + + | (unknown) | (no date) | (unknown) | [facility] | (no | (units | (unknown) | | | | | [facility] | value) | unknown) | | | | | [facility] | | | | + + + + +---------+ + + + + | Result panel 430 | + + + + + + +---------+ + + | (unknown) | (no date) | (unknown) | [facility] | (no | (units | (unknown) | | | | | [facility] | value) | unknown) | | | | | [facility] | | | | + + + + +---------+ + + + + | Result panel 431 | + + + + + + +---------+ + + | (unknown) | (no date) | (unknown) | [facility] | (no | (units | (unknown) | | | | | [facility] | value) | unknown) | | | | | | [facility] | | | | | | [facility] | | | | + + + + +---------+ + + + + | Result panel 432 | + + + + + + +---------+ + + | (unknown) | (no date) | (unknown) | [facility] | (no | (units | (unknown) | | | | | [facility] | value) | unknown) | | | | | | [facility] | | | | | | [facility] | | | | + + + + +---------+ + + + + | Result panel 433 | + + + + + + +---------+ + + | (unknown) | (no date) | (unknown) | [facility] | (no | (units | (unknown) | | | | | [facility] | value) | unknown) | | | | | | [facility] | [facility] | | | | | | [facility] | | | | + + + + +---------+ + + + + | Result panel 434 | + + + + + + +---------+ + + | (unknown) | (no date) | (unknown) | [facility] | (no | (units | (unknown) | | | | | [facility] | value) | unknown) | | | | | | [facility] | | | | [facility] | | | | + + + + +---------+ + + + + | Result panel 435 | + + + + + + +---------+ + + | (unknown) | (no date) | (unknown) | [facility] | (no | (units | (unknown) | | | | | [facility] | value) | unknown) | | | | | | [facility] | | [facility] | | | | + + + + +---------+ + + Social History + + + + | date | description | facility | + + + + | 2022-06-15 00:00 | Unknown if ever smoked | [facility] | | | | | + + + + | 2022-09-21 00:00 | Unknown if ever smoked | [facility] | | | | | + + + + | 2022-12-26 00:00 | Unknown if ever smoked | [facility] | | | | | + + + + | 2023-01-06 00:00 | [facility] if [facility] smoked [facility] | | | | | + + + + | 2023-01-18 00:00 | Unknown if ever smoked | [facility] | | | | | + + + + | 2023-01-23 00:00 | Unknown if ever smoked | [facility] | | | | | + + + + | 2023-01-26 00:00 | Never smoker | [facility] | + + + + | 2023-02-27 00:00 | Unknown if ever smoked | [facility] | | | | | + + + + | 2023-03-27 00:00 | Unknown if ever smoked | [facility] | | | | | + + + + Vital Signs + + + + + | date | measurement | value | units | + + + + + | 2022-06-15 00:00 | BMI | 40.7 | kg/m2 | + + + + + | 2022-06-15 00:00 | BP_diastolic | 100 | mmHg | + + + + + | 2022-06-15 00:00 | BP_systolic | 155 | mmHg | + + + + + | 2022-06-15 00:00 | BSA | 2.5 | m2 | + + + + + | 2022-06-15 00:00 | BSA | 2.50 | m2 | + + + + + | 2022-06-15 00:00 | heart_rate | 1|1| | completed | + + + + + | 2022-06-15 00:00 | heart_rate | 73 | /min | + + + + + | 2022-06-15 00:00 | height_metric | 181.61 | cm | + + + + + | 2022-06-15 00:00 | height_standard | 71.5 | in | + + + + + | 2022-06-15 00:00 | o2_saturation | 98 | % | + + + + + | 2022-06-15 00:00 | temperature_metric | 36.61 | C | | | | | | + + + + + | 2022-06-15 00:00 | | 97.9 | F | | | temperature_standar | | | | | d | | | + + + + + | 2022-06-15 00:00 | weight_metric | 134.26 | kg | + + + + + | 2022-06-15 00:00 | weight_standard | 296 | lb | + + + + + | 2022-09-21 00:00 | BP_diastolic | 80 | mmHg | + + + + + | 2022-09-21 00:00 | BP_systolic | 118 | mmHg | + + + + + | 2022-09-21 00:00 | heart_rate | 1|1| | completed | + + + + + | 2022-09-21 00:00 | heart_rate | 79 | /min | + + + + + | 2022-09-21 00:00 | height_metric | 181.61 | cm | + + + + + | 2022-09-21 00:00 | height_standard | 71.5 | in | + + + + + | 2022-09-21 00:00 | o2_saturation | 98 | % | + + + + + | 2022-09-21 00:00 | temperature_metric | 36.39 | C | | | | | | + + + + + | 2022-09-21 00:00 | | 97.5 | F | | | temperature_standar | | | | | d | | | + + + + + | 2022-12-26 00:00 | BMI | 39.6 | 1 | + + + + + | 2022-12-26 00:00 | BP_diastolic | 72 | mmHg | + + + + + | 2022-12-26 00:00 | BP_systolic | 112 | mmHg | + + + + + | 2022-12-26 00:00 | BSA | 2.5 | 1 | + + + + + | 2022-12-26 00:00 | heart_rate | 1|1| | completed | + + + + + | 2022-12-26 00:00 | heart_rate | 85 | /min | + + + + + | 2022-12-26 00:00 | height_metric | 181.61 | cm | + + + + + | 2022-12-26 00:00 | height_standard | 71.5 | in | + + + + + | 2022-12-26 00:00 | o2_saturation | 99 | % | + + + + + | 2022-12-26 00:00 | temperature_metric | 37 | C | | | | | | + + + + + | 2022-12-26 00:00 | | 98.6 | F | | | temperature_standar | | | | | d | | | + + + + + | 2022-12-26 00:00 | weight_metric | 130.63 | kg | + + + + + | 2022-12-26 00:00 | weight_standard | 288 | lb | + + + + + | 2023-01-05 00:00 | BMI | 39.5 | 1 | + + + + + | 2023-01-05 00:00 | BP_diastolic | 78 | mmHg | + + + + + | 2023-01-05 00:00 | BP_systolic | 120 | mmHg | + + + + + | 2023-01-05 00:00 | BSA | 2.5 | 1 | + + + + + | 2023-01-05 00:00 | heart_rate | 1|1| | completed | + + + + + | 2023-01-05 00:00 | heart_rate | 82 | /min | + + + + + | 2023-01-05 00:00 | height_metric | 181.61 | cm | + + + + + | 2023-01-05 00:00 | height_standard | 71.5 | in | + + + + + | 2023-01-05 00:00 | o2_saturation | 97 | % | + + + + + | 2023-01-05 00:00 | temperature_metric | 36.72 | C | | | | | | + + + + + | 2023-01-05 00:00 | | 98.1 | F | | | temperature_standar | | | | | d | | | + + + + + | 2023-01-05 00:00 | weight_metric | 130.18 | kg | + + + + + | 2023-01-05 00:00 | weight_standard | 287 | lb | + + + + + | 2023-01-23 00:00 | BP_diastolic | 86 | mmHg | + + + + + | 2023-01-23 00:00 | BP_systolic | 132 | mmHg | + + + + + | 2023-01-23 00:00 | heart_rate | 1|1| | completed | + + + + + | 2023-01-23 00:00 | heart_rate | 86 | /min | + + + + + | 2023-01-23 00:00 | height_metric | 181.61 | cm | + + + + + | 2023-01-23 00:00 | height_standard | 71.5 | in | + + + + + | 2023-01-23 00:00 | o2_saturation | 96 | % | + + + + + | 2023-01-23 00:00 | temperature_metric | 36.61 | C | | | | | | + + + + + | 2023-01-23 00:00 | | 97.9 | F | | | temperature_standar | | | | | d | | | + + + + + | 2023-01-26 00:00 | BMI | 37.6 | kg/m2 | + + + + + | 2023-01-26 00:00 | BP_diastolic | 99 | mmHg | + + + + + | 2023-01-26 00:00 | BP_systolic | 125 | mmHg | + + + + + | 2023-01-26 00:00 | heart_rate | 68 | /min | + + + + + | 2023-01-26 00:00 | height_metric | 185.42 | cm | + + + + + | 2023-01-26 00:00 | height_standard | 73 | in | + + + + + | 2023-01-26 00:00 | o2_saturation | 96 | % | + + + + + | 2023-01-26 00:00 | respiration_rate | 18 | /min | + + + + + | 2023-01-26 00:00 | temperature_metric | 36.67 | C | | | | | | + + + + + | 2023-01-26 00:00 | | 98 | F | | | temperature_standar | | | | | d | | | + + + + + | 2023-01-26 00:00 | weight_metric | 129.27 | kg | + + + + + | 2023-01-26 00:00 | weight_standard | 284.99 | lb | + + + + + | 2023-01-26 00:00 | weight_standard | 285 | lb | + + + + + | 2023-01-30 00:00 | BMI | 35.1 | kg/m2 | + + + + + | 2023-01-30 00:00 | height_metric | 185.42 | cm | + + + + + | 2023-01-30 00:00 | height_standard | 73 | in | + + + + + | 2023-01-30 00:00 | weight_metric | 120.7 | kg | + + + + + | 2023-01-30 00:00 | weight_standard | 266.1 | lb | + + + + + | 2023-02-01 00:00 | BP_diastolic | 138 | mmHg | + + + + + | 2023-02-01 00:00 | BP_systolic | 137 | mmHg | + + + + + | 2023-02-01 00:00 | heart_rate | 72 | /min | + + + + + | 2023-02-01 00:00 | o2_saturation | 97 | % | + + + + + | 2023-02-01 00:00 | respiration_rate | 17 | /min | + + + + + | 2023-02-01 00:00 | temperature_metric | 36.17 | C | | | | | | + + + + + | 2023-02-01 00:00 | | 97.1 | F | | | temperature_standar | | | | | d | | | + + + + + | 2023-02-15 00:00 | BMI | 35.5 | kg/m2 | + + + + + | 2023-02-15 00:00 | height_metric | 185.42 | cm | + + + + + | 2023-02-15 00:00 | height_standard | 73 | in | + + + + + | 2023-02-15 00:00 | weight_metric | 122 | kg | + + + + + | 2023-02-15 00:00 | weight_standard | 268.96 | lb | + + + + + | 2023-02-17 00:00 | BP_diastolic | 91 | mmHg | + + + + + | 2023-02-17 00:00 | BP_systolic | 117 | mmHg | + + + + + | 2023-02-17 00:00 | heart_rate | 80 | /min | + + + + + | 2023-02-17 00:00 | o2_saturation | 100 | % | + + + + + | 2023-02-17 00:00 | respiration_rate | 22 | /min | + + + + + | 2023-02-17 00:00 | temperature_metric | 36.61 | C | | | | | | + + + + + | 2023-02-17 00:00 | | 97.9 | F | | | temperature_standar | | | | | d | | | + + + + + | 2023-02-27 00:00 | BMI | 39.2 | 1 | + + + + + | 2023-02-27 00:00 | BP_diastolic | 60 | mmHg | + + + + + | 2023-02-27 00:00 | BP_systolic | 90 | mmHg | + + + + + | 2023-02-27 00:00 | BSA | 2.5 | 1 | + + + + + | 2023-02-27 00:00 | heart_rate | 1|1| | completed | + + + + + | 2023-02-27 00:00 | heart_rate | 74 | /min | + + + + + | 2023-02-27 00:00 | height_metric | 181.61 | cm | + + + + + | 2023-02-27 00:00 | height_standard | 71.5 | in | + + + + + | 2023-02-27 00:00 | o2_saturation | 97 | % | + + + + + | 2023-02-27 00:00 | temperature_metric | 36.72 | C | | | | | | + + + + + | 2023-02-27 00:00 | | 98.1 | F | | | temperature_standar | | | | | d | | | + + + + + | 2023-02-27 00:00 | weight_metric | 129.44 | kg | + + + + + | 2023-02-27 00:00 | weight_standard | 285.38 | lb | + + + + + | 2023-03-12 00:00 | BMI | 34.0 | kg/m2 | + + + + + | 2023-03-12 00:00 | BP_diastolic | 60 | mmHg | + + + + + | 2023-03-12 00:00 | BP_systolic | 95 | mmHg | + + + + + | 2023-03-12 00:00 | heart_rate | 102 | /min | + + + + + | 2023-03-12 00:00 | height_metric | 185.42 | cm | + + + + + | 2023-03-12 00:00 | height_standard | 73 | in | + + + + + | 2023-03-12 00:00 | o2_saturation | 100 | % | + + + + + | 2023-03-12 00:00 | respiration_rate | 22 | /min | + + + + + | 2023-03-12 00:00 | temperature_metric | 36.67 | C | | | | | | + + + + + | 2023-03-12 00:00 | | 98 | F | | | temperature_standar | | | | | d | | | + + + + + | 2023-03-12 00:00 | weight_metric | 117.03 | kg | + + + + + | 2023-03-12 00:00 | weight_standard | 258 | lb | + + + + + | 2023-03-12 00:00 | weight_standard | 258.01 | lb | + + + + + | 2023-03-27 00:00 | BMI | 35.9 | 1 | + + + + + | 2023-03-27 00:00 | BSA | 2.4 | 1 | + + + + + | 2023-03-27 00:00 | heart_rate | 1|1| | completed | + + + + + | 2023-03-27 00:00 | heart_rate | 43 | /min | + + + + + | 2023-03-27 00:00 | height_metric | 181.61 | cm | + + + + + | 2023-03-27 00:00 | height_standard | 71.5 | in | + + + + + | 2023-03-27 00:00 | o2_saturation | 99 | % | + + + + + | 2023-03-27 00:00 | temperature_metric | 36.39 | C | | | | | | + + + + + | 2023-03-27 00:00 | | 97.5 | F | | | temperature_standar | | | | | d | | | + + + + + | 2023-03-27 00:00 | weight_metric | 118.39 | kg | + + + + + | 2023-03-27 00:00 | weight_standard | 261 | lb | + + + + +"
--- OUTSIDE RECORDS SUMMARY | ~2023-03-28 | XMS | Continuity of Care Document ---
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 | Phone | + [...] 2023-01-26 00:00 | No vaccine administered | [facility] | + + + + Medications + + + + | date | description | facility | + + + + | 2023-01-26 00:00 | LIDOCAINE 2% VISCOUS | [facility] | + + + + | 2023-02-01 00:00 | LIDOCAINE 2% VISCOUS | [facility] | + + + + | 2023-02-17 00:00 | LIDOCAINE 2% VISCOUS | [facility] | + + + + | 2023-03-12 00:00 | LIDOCAINE 2% VISCOUS | [facility] | + + + + | 2023-01-26 00:00 | lidocaine hydrochloride 20 | [facility] | | | MG/ML Mucous Membrane | | | | Topical Rody | | + + + + | 2016-02-09 00:00 | FAMOTIDINE | [facility] | + + + + | 2016-02-09 00:00 | FAMOTIDINE | [facility] | + + + + | 2016-08-11 00:00 | FAMOTIDINE | [facility] | + + + + | 2016-08-11 00:00 | FAMOTIDINE | [facility] | + + + + | 2016-02-09 00:00 | famotidine 20 MG Oral | [facility] | | | Tablet [Pepcid] | | + + + + | 2016-08-11 00:00 | famotidine 20 MG Oral | [facility] | | | Tablet [Pepcid] | | + + + + | 2014-10-10 00:00 | OXYCODONE | [facility] | | | HCL/ACETAMINOPHEN | | + + + + | 2014-10-10 00:00 | OXYCODONE | [facility] | | | HCL/ACETAMINOPHEN | | + + + + | 2014-11-02 00:00 | OXYCODONE | [facility] | | | HCL/ACETAMINOPHEN | | + + + + | 2014-11-02 00:00 | OXYCODONE | [facility] | | | HCL/ACETAMINOPHEN | | + + + + | 2016-04-22 00:00 | OXYCODONE | [facility] | | | HCL/ACETAMINOPHEN | | + + + + | 2016-04-22 00:00 | OXYCODONE | [facility] | | | HCL/ACETAMINOPHEN | | + + + + | 2023-01-26 00:00 | OXYCODONE | [facility] | | | HCL/ACETAMINOPHEN | | + + + + | 2023-02-01 00:00 | OXYCODONE | [facility] | | | HCL/ACETAMINOPHEN | | + + + + | 2023-02-17 00:00 | OXYCODONE | [facility] | | | HCL/ACETAMINOPHEN | | + + + + | 2023-03-12 00:00 | OXYCODONE | [facility] | | | HCL/ACETAMINOPHEN | | + + + + | 2014-10-10 00:00 | acetaminophen 325 MG / | [facility] | | | oxycodone hydrochloride 5 | | | | MG Oral Tab | | + + + + | 2014-11-02 00:00 | acetaminophen 325 MG / | [facility] | | | oxycodone hydrochloride 5 | | | | MG Oral Tab | | + + + + | 2016-04-22 00:00 | acetaminophen 325 MG / | [facility] | | | oxycodone hydrochloride 5 | | | | MG Oral Tab | | + + + + | 2023-01-26 00:00 | acetaminophen 325 MG / | [facility] | | | oxycodone hydrochloride [...] | Lisinopril 20 MG OR TABS | [facility] | | | | | + + + + | 2023-01-05 00:00 | 60 ACTUAT budesonide 0.16 | [facility] | | | MG/ACTUAT / [...] 00:00 | 60 ACTUAT budesonide 0.16 | [facility] | | | MG/ACTUAT / formoterol | | | | fumarate 0.0045 MG/ACTUAT | | | | Metered Dose Inhaler | | | | [Symbicort] | | + + + + | 2022-06-15 00:00 | Symbicort 160-4.5 MCG/ACT | [facility] | | | Inhalation Aerosol | | + + + + | 2022-08-17 00:00 | Symbicort 160-4.5 MCG/ACT | [facility] | | | Inhalation Aerosol | | + + + + | 2014-06-09 00:00 | ASPIRIN | [facility] | + + + + | 2014-06-09 00:00 | ASPIRIN | [facility] | + + + + | 2014-06-09 00:00 | aspirin 81 MG Delayed | [facility] | | | Release Oral Tablet | | | | [Aspir-Low] | | + + + + | 2014-09-05 00:00 | acetaminophen 300 MG / | [facility] | | | hydrocodone bitartrate 5 MG | | | | Oral Tablet [Vicodin] | | + + + + | 2023-01-26 00:00 | Budesonide/Formoterol | [facility] | | | Fumarate | | + + + + | 2023-02-01 00:00 | Budesonide/Formoterol | [facility] | | | Fumarate | | + + + + | 2023-02-17 00:00 | Budesonide/Formoterol | [facility] | | | Fumarate | | + + + + | 2023-03-12 00:00 | Budesonide/Formoterol | [facility] | | | Fumarate | | + + + + | 2023-01-26 00:00 | budesonide 0.16 MG/ACTUAT | [facility] | | | / formoterol fumarate | | | | 0.0045 MG/AC | | + + + + | 2023-01-26 00:00 | APIXABAN | [facility] | + + + + | 2023-02-01 00:00 | APIXABAN | [facility] | + + + + | 2023-02-17 00:00 | APIXABAN | [facility] | + + + + | 2023-03-12 00:00 | APIXABAN | [facility] | + + + + [...] | apixaban 5 MG Oral Tablet | [facility] | | | [Eliquis] | | + + + + | 2014-09-05 00:00 | Multiple Vitamins OR TABS | [facility] | | | | | + + + + | 2019-05-21 00:00 | Centrum Silver Ultra Mens | [facility] | | | Oral Tablet | | + + + + | 2023-01-26 00:00 | EMPAGLIFLOZIN | [facility] | + + + + | 2023-02-01 00:00 | EMPAGLIFLOZIN | [facility] | + + + + | 2023-02-17 00:00 | EMPAGLIFLOZIN | [facility] | + + + + | 2023-03-12 00:00 | EMPAGLIFLOZIN | [facility] | + + + + | 2023-01-18 00:00 | empagliflozin 10 MG Oral | [facility] | | | Tablet [Jardiance] | | + + + + | 2023-01-26 00:00 | empagliflozin 10 MG Oral | [facility] | | | Tablet [Jardiance] [...] 00:00 | Jardiance 10 MG Oral | [facility] | | | Tablet | | + + + + | 2023-02-27 00:00 | Ascorbic Acid 500 MG Oral | [facility] | | | Tablet | | + + + + | 2022-06-15 00:00 | benzonatate 100 MG Oral | [facility] | | | Capsule | | + + + + | 2023-01-26 00:00 | GUANFACINE HCL | [facility] | + + + + | 2023-02-01 00:00 | GUANFACINE HCL | [facility] | + + + + | 2023-02-17 00:00 | GUANFACINE HCL | [facility] | + + + + | 2023-03-12 00:00 | GUANFACINE HCL | [facility] | + + + + | 2023-01-26 00:00 | guanfacine 2 MG Oral | [facility] | | | Tablet | | + + + + | 2023-01-26 00:00 | | [facility] | | | LISINOPRIL/HYDROCHLOROTHIAZ | | | | RACHEL | | + + + + | 2023-02-01 00:00 | | [facility] | | | LISINOPRIL/HYDROCHLOROTHIAZ | | | | RACHEL | | + + + + | 2023-02-17 00:00 | | [facility] | | | LISINOPRIL/HYDROCHLOROTHIAZ | | | | RACHEL | | + + + + | 2023-03-12 00:00 | | [facility] | | | LISINOPRIL/HYDROCHLOROTHIAZ | | | | RACHEL | | + + + + | 2019-05-21 00:00 | hydrochlorothiazide 12.5 | [facility] | | | MG / lisinopril 20 MG Oral | | | | Tablet | | + + + + | 2019-11-25 00:00 | hydrochlorothiazide 12.5 | [facility] | | | MG / lisinopril 20 MG Oral | | | | Tablet | | + + + + | 2020-03-09 00:00 | hydrochlorothiazide 12.5 | [facility] | | | MG / lisinopril 20 MG Oral | | | | Tablet | | + + + + | 2022-06-15 00:00 | hydrochlorothiazide 12.5 | [facility] | | | MG / lisinopril 20 MG Oral | | | | Tablet | | + + + + | 2022-06-29 00:00 | hydrochlorothiazide 12.5 | [facility] | | | MG / lisinopril 20 MG Oral | | | | Tablet | | + + + + | 2023-01-26 00:00 | hydrochlorothiazide 12.5 | [facility] | | | MG / lisinopril 20 MG Oral | | | | Tablet | | + + + + | 2020-03-09 00:00 | ondansetron 4 MG Oral | [facility] | | | Tablet | | + + + + | 2020-06-16 00:00 | ondansetron 4 MG Oral | [facility] | | | Tablet | | + + + + | 2023-01-26 00:00 | POTASSIUM CHLORIDE | [facility] | + + + + | 2023-02-01 00:00 | POTASSIUM CHLORIDE | [facility] | + + + + | 2023-02-17 00:00 | POTASSIUM CHLORIDE | [facility] | + + + + | 2023-03-12 00:00 | POTASSIUM CHLORIDE | [facility] | + + + + | 2019-05-21 00:00 | potassium chloride 20 MEQ | [facility] | | | Extended Release Oral | | | | Tablet | | + + + + | 2019-11-25 00:00 | potassium chloride 20 MEQ | [facility] | | | Extended Release Oral | | | | Tablet | | + + + + | 2023-01-26 00:00 | potassium chloride 20 MEQ | [facility] | | | Extended Release Oral | | | | Tablet | | + + + + | 2019-05-21 00:00 | ranitidine 150 MG Oral | [facility] | | | Tablet | | + + + + | 2023-01-26 00:00 | TORSEMIDE | [facility] | + + + + | 2023-02-01 00:00 | TORSEMIDE | [facility] | + + + + | 2023-02-17 00:00 | TORSEMIDE | [facility] | + + + + | 2023-03-12 00:00 | TORSEMIDE | [facility] | + + + + | 2022-12-26 00:00 | torsemide 10 MG Oral | [facility] | | | Tablet | | + + + + | 2023-01-26 00:00 | torsemide 10 MG Oral | [facility] | | | Tablet | | + + + + | 2023-01-26 00:00 | Magnesium Oxide | [facility] | + + + + | 2023-01-26 00:00 | Magnesium Oxide | [facility] | + + + + | 2023-02-01 00:00 | Magnesium Oxide | [facility] | + + + + | 2023-01-26 00:00 | magnesium oxide 400 MG | [facility] | | | Oral Tablet | | + + + + | 2022-06-15 00:00 | ascorbic acid 500 MG Oral | [facility] | | | Capsule | | + + + + | 2023-02-16 00:00 | ascorbic acid 500 MG Oral | [facility] | | | Capsule | | + + + + | 2023-01-26 00:00 | OMEPRAZOLE | [facility] | + + + + | 2023-02-01 00:00 | OMEPRAZOLE | [facility] | + + + + | 2023-02-17 00:00 | OMEPRAZOLE | [facility] | + + + + | 2023-03-12 00:00 | OMEPRAZOLE | [facility] | + + + + | 2023-01-26 00:00 | omeprazole 40 MG Delayed | [facility] | | | Release Oral Capsule | | + + + + | 2023-02-17 00:00 | SPIRONOLACTONE | [facility] | + + + + | 2023-03-12 00:00 | SPIRONOLACTONE | [facility] | + + + + | 2022-12-26 00:00 | Spironolactone 25 MG Oral | [facility] | | | Tablet | | + + + + | 2023-01-23 00:00 | FeroSul 325 (65 Fe) MG | [facility] | | | Oral Tablet | | + + + + | 2019-05-21 00:00 | sucralfate 100 MG/ML Oral | [facility] | | | Suspension [Carafate] | | + + + + | 2022-06-15 00:00 | sucralfate 100 MG/ML Oral | [facility] | | | Suspension [Carafate] | | + + + + | 2014-09-05 00:00 | sucralfate 1000 MG Oral | [facility] | | | Tablet [Carafate] | | + + + + | 2023-01-26 00:00 | ACETAMINOPHEN | [facility] | + + + + | 2023-02-01 00:00 | ACETAMINOPHEN | [facility] | + + + + | 2023-02-17 00:00 | ACETAMINOPHEN | [facility] | + + + + | 2023-03-12 00:00 | ACETAMINOPHEN | [facility] | + + + + | 2023-01-26 00:00 | acetaminophen 325 MG Oral | [facility] | | | Tablet [Mapap] | | + + + + | 2022-06-15 00:00 | Vitamin C 500 MG Oral | [facility] | | | Capsule | | + + + + | 2023-02-16 00:00 | Vitamin C 500 MG Oral | [facility] | | | Capsule | | + + + + | 2019-05-21 00:00 | vitamin B12 1 MG Extended | [facility] | | | Release Oral Tablet | | + + + + | 2019-11-25 00:00 | Bactrim DS 800-160 MG Oral | [facility] | | | Tablet | | + + + + | 2014-09-05 00:00 | pantoprazole 20 MG Delayed | [facility] | | | Release Oral Tablet | | + + + + | 2022-06-15 00:00 | Benzonatate 100 MG Oral | [facility] | | | Capsule | | + + + + | 2023-01-26 00:00 | ASCORBIC ACID | [facility] | + + + + | 2023-02-01 00:00 | ASCORBIC ACID | [facility] | + + + + | 2023-02-17 00:00 | ASCORBIC ACID | [facility] | + + + + | 2023-03-12 00:00 | ASCORBIC ACID | [facility] | + + + + | 2023-01-26 00:00 | ascorbic acid 500 MG Oral | [facility] | | | Tablet | | + [...] + + | 2022-06-29 00:00 | | [facility] | | | Lisinopril-hydroCHLOROthiaz | | | | rachel 20-12.5 MG Oral Tablet | | + + + + | 2019-05-21 00:00 | | [facility] | | | Lisinopril-hydroCHLOROthiaz | | | | rachel 20-12.5MG Oral Tablet | | + + + + | 2023-01-26 00:00 | PANTOPRAZOLE SODIUM | [facility] | + + + + | 2023-02-01 00:00 | PANTOPRAZOLE SODIUM | [facility] | + + + + | 2023-02-17 00:00 | PANTOPRAZOLE SODIUM | [facility] | + + + + | 2023-03-12 00:00 | PANTOPRAZOLE SODIUM | [facility] | + + + + | 2023-01-26 00:00 | pantoprazole 40 MG Delayed | [facility] | | | Release Oral Tablet | | | | [Protonix] | | + + + + | 2023-01-27 00:00 | Magnesium Oxide 400 MG | [facility] | | | Oral Tablet | | + + + + | 2020-03-09 00:00 | Ondansetron HCl 4 MG Oral | [facility] | | | Tablet | | + + + + | 2020-06-16 00:00 | Ondansetron HCl 4 MG Oral | [facility] | | | Tablet | | + + + + | 2019-05-21 00:00 | raNITIdine HCl 150MG Oral | [facility] | | | Tablet | | + + + + | 2023-01-26 00:00 | CHOLECALCIFEROL (VITAMIN | [facility] | | | D3) | | + + + + | 2023-02-01 00:00 | Cholecalciferol (Vitamin | [facility] | | | D3) | | + + + + | 2023-02-17 00:00 | Cholecalciferol (Vitamin | [facility] | | | D3) | | + + + + | 2023-03-12 00:00 | Cholecalciferol (Vitamin | [facility] | | | D3) | | + + + + | 2023-01-26 00:00 | cholecalciferol 0.01 MG | [facility] | | | Oral Tablet | | + + + + | 2023-01-26 00:00 | FERROUS SULFATE | [facility] | + + + + | 2023-02-01 00:00 | FERROUS SULFATE | [facility] | + + + + | 2023-02-17 00:00 | FERROUS SULFATE | [facility] | + + + + | 2023-03-12 00:00 | FERROUS SULFATE | [facility] | + + + + | 2023-02-01 00:00 | Ferrous Sulfate | [facility] | + + + + | 2023-02-17 00:00 | Ferrous Sulfate | [facility] | + + + + | 2023-03-12 00:00 | Ferrous Sulfate | [facility] | + + + + | 2023-01-26 00:00 | ferrous sulfate 325 MG | [facility] | | | Oral Tablet | | + + + + | 2023-01-26 00:00 | FUROSEMIDE | [facility] | + + + + | 2023-02-01 00:00 | FUROSEMIDE | [facility] | + + + + | 2023-02-17 00:00 | FUROSEMIDE | [facility] | + + + + | 2023-03-12 00:00 | FUROSEMIDE | [facility] | + + + + | 2019-05-21 00:00 | furosemide 20 MG Oral | [facility] | | | Tablet | | + + + + | 2019-11-25 00:00 | furosemide 20 MG Oral | [facility] | | | Tablet | | + + + + | 2020-03-09 00:00 | furosemide 20 MG Oral | [facility] | | | Tablet | | + + + + | 2023-01-26 00:00 | furosemide 20 MG Oral | [facility] | | | Tablet | | + + + + | 2023-01-26 00:00 | GABAPENTIN | [facility] | + + + + [...] 00:00 | gabapentin 300 MG Oral | [facility] | | | Capsule | | + + + + | 2023-01-26 00:00 | gabapentin 300 MG Oral | [facility] | | | Capsule | | + + + + | 2023-01-26 00:00 | SENNOSIDES | [facility] | + + + + | 2023-02-01 00:00 | SENNOSIDES | [facility] | + + + + | 2023-02-17 00:00 | SENNOSIDES | [facility] | + + + + | 2023-03-12 00:00 | SENNOSIDES | [facility] | + + + + | 2023-01-26 00:00 | sennosides, PENITENTIARY 8.6 MG | [facility] | | | Oral Tablet | | + + + + | 2023-01-26 00:00 | SPIRONOLACTONE | [facility] | + + + + | 2023-02-01 00:00 | SPIRONOLACTONE | [facility] | + + + + | 2023-02-17 00:00 | SPIRONOLACTONE | [facility] | + + + + | 2023-03-12 00:00 | SPIRONOLACTONE | [facility] | + + + + | 2022-12-26 00:00 | spironolactone 25 MG Oral | [facility] | | | Tablet | | + + + + | 2023-01-26 00:00 | spironolactone 25 MG Oral | [facility] | | | Tablet | | + + + + | 2023-02-27 00:00 | ascorbic acid 500 MG | [facility] | | | Chewable Tablet | | + + + + | 2023-01-26 00:00 | LISINOPRIL | [facility] | + + + + | 2023-02-01 00:00 | LISINOPRIL | [facility] | + + + + | 2023-02-17 00:00 | LISINOPRIL | [facility] | + + + + | 2023-03-12 00:00 | LISINOPRIL | [facility] | + + + + | 2023-01-26 00:00 | lisinopril 10 MG Oral | [facility] | | | Tablet | | + + + + | 2014-09-05 00:00 | lisinopril 20 MG Oral | [facility] | | | Tablet | | + + + + | 2023-01-26 00:00 | PANTOPRAZOLE SODIUM | [facility] | + + + + | 2023-02-01 00:00 | PANTOPRAZOLE SODIUM | [facility] | + + + + | 2023-02-17 00:00 | PANTOPRAZOLE SODIUM | [facility] | + + + + | 2023-03-12 00:00 | PANTOPRAZOLE SODIUM | [facility] | + + + + | 2019-05-21 00:00 | pantoprazole 40 MG Delayed | [facility] | | | Release Oral Tablet | | + + + + | 2023-01-26 00:00 | pantoprazole 40 MG Delayed | [facility] | | | Release Oral Tablet | | + + + + | 2023-01-26 00:00 | SUCRALFATE | [facility] | + + + + | 2023-02-01 00:00 | SUCRALFATE | [facility] | + + + + | 2023-02-17 00:00 | SUCRALFATE | [facility] | + + + + | 2023-03-12 00:00 | SUCRALFATE | [facility] | + + + + | 2023-01-26 00:00 | sucralfate 1000 MG Oral | [facility] | | | Tablet | [...] | Carafate 1 GM OR TABS | [facility] | | | | [...] 00:00 | Albuterol Sulfate HFA 108 | [facility] | | | (90 Base) MCG/ACT | | | | Inhalation Aerosol Solution | | | | | | + + + + | 2023-01-18 00:00 | Senna 8.6 MG Oral Tablet | [facility] | | | | | + + + + | 2022-12-26 00:00 | Torsemide 10 MG Oral | [facility] | | | Tablet | | + + + + | 2020-03-09 00:00 | Gabapentin 300 MG Oral | [facility] | | | Capsule | | + + + + | 2020-06-15 00:00 | Gabapentin 300 MG Oral | [facility] | | | Capsule | | + + + + | 2020-08-25 00:00 | Gabapentin 300 MG Oral | [facility] | | | Capsule | | + + + + | 2019-05-14 00:00 | Gabapentin 300MG Oral | [facility] | | | Capsule | | + + + + | 2023-02-01 00:00 | Pregabalin | [facility] | + + + + | 2023-02-17 00:00 | Pregabalin | [facility] | + + + + | 2023-03-12 00:00 | Pregabalin | [facility] | + + + + | 2014-09-05 00:00 | Pramipexole | [facility] | | | Dihydrochloride [...] | 2023-01-26 00:00 | AMPHET ASP/AMPHET/D-AMPHET | [facility] | | | | | + + + + | 2023-02-01 00:00 | AMPHET ASP/AMPHET/D-AMPHET | [facility] | | | | | + + + + | 2023-02-17 00:00 | AMPHET ASP/AMPHET/D-AMPHET | [facility] | | | | | + + + + | 2023-03-12 00:00 | AMPHET ASP/AMPHET/D-AMPHET | [facility] | | | | | + + + + | 2023-01-26 00:00 | amphetamine aspartate 5 MG | [facility] | | | / amphetamine sulfate 5 MG | | | | / dext | | + + + + | 2023-01-26 00:00 | AMPHET ASP/AMPHET/D-AMPHET | [facility] | | | | | + + + + | 2023-02-01 00:00 | AMPHET ASP/AMPHET/D-AMPHET | [facility] | | | | | + + + + | 2023-02-17 00:00 | AMPHET ASP/AMPHET/D-AMPHET | [facility] | | | | | + + + + | 2023-03-12 00:00 | AMPHET ASP/AMPHET/D-AMPHET | [facility] | | | | | + + + + | 2023-01-26 00:00 | amphetamine aspartate 5 MG | [facility] | | | / amphetamine sulfate 5 MG | | | | / dext | | + + + + | 2014-09-05 00:00 | Pantoprazole Sodium 20 MG | [facility] | | | OR TBEC | | + + + + | 2019-05-21 00:00 | Pantoprazole Sodium 40MG | [facility] | | | Oral Tablet Delayed Release | | | | | | + + + + | 2019-05-14 00:00 | nystatin 100 UNT/MG | [facility] | | | Topical Powder | | + + + + | 2022-09-21 00:00 | dilTIAZem HCl 120 MG Oral | [facility] | | | Tablet | | + + + + | 2023-01-18 00:00 | dilTIAZem HCl 120 MG Oral | [facility] | | | Tablet | | + + + + | 2014-09-05 00:00 | Adderall 12.5 MG OR TABS | [facility] | | | | [...] 00:00 | Metoprolol Succinate ER 25 | [facility] | | | MG Oral Tablet Extended | | | | Release 24 Hour | | + + + + | 2023-03-01 00:00 | Metoprolol Succinate ER 25 | [facility] | | | MG Oral [...] + + + | 2019-11-25 00:00 | [id number] 200 ACTUAT | [facility] | | | albuterol 0.09 MG/ACTUAT | | | | Metered Dose Inhaler | | | | [ProAir] | | + + + + | 2020-03-09 00:00 | [id number] 200 ACTUAT | [facility] [...] + | 2019-11-25 00:00 | HYDROcodone-Acetaminophen | [facility] | | | 5-325 MG Oral Tablet | | + + + + | 2023-01-18 00:00 | [id number] 60 ACTUAT | [facility] | | | albuterol 0.09 MG/ACTUAT | | | | Metered Dose Inhaler | | + + + + | 2023-02-15 00:00 | [id number] 60 ACTUAT | [facility] | | | albuterol 0.09 MG/ACTUAT | | | | Metered Dose Inhaler | | + + + + | 2023-02-17 00:00 | CYCLOBENZAPRINE HCL | [facility] | + + + + | 2023-01-26 00:00 | DILTIAZEM HCL | [facility] | + + + + | 2023-02-01 00:00 | DILTIAZEM HCL | [facility] | + + + + | 2023-02-17 00:00 | DILTIAZEM HCL | [facility] | + + + + | 2023-03-12 00:00 | DILTIAZEM HCL | [facility] | + + + + | 2022-09-21 00:00 | diltiazem hydrochloride | [facility] | | | 120 MG Oral Tablet | | + + + + | 2023-01-18 00:00 | diltiazem hydrochloride | [facility] | | | 120 MG Oral Tablet | | + + + + | 2023-01-26 00:00 | diltiazem hydrochloride | [facility] | | | 120 MG [...] + | 2016-04-09 00:00 | HYDROCODONE | [facility] | | | BIT/ACETAMINOPHEN | | + + + + | 2016-04-09 00:00 | HYDROCODONE | [facility] | | | BIT/ACETAMINOPHEN | | + + + + | 2022-06-15 00:00 | acetaminophen 21.7 MG/ML / | [facility] | | | hydrocodone bitartrate 0.5 | | | | MG/ML Oral Solution | | + + + + | 2016-04-09 00:00 | acetaminophen 21.7 MG/ML / | [facility] | | | hydrocodone bitartrate 0.5 | | | | MG/ML | | + + + + | 2023-02-01 00:00 | HYDROCODONE | [facility] | | | BIT/ACETAMINOPHEN | | + + + + | 2023-02-17 00:00 | HYDROCODONE | [facility] | | | BIT/ACETAMINOPHEN | | + + + + | 2023-03-12 00:00 | HYDROCODONE | [facility] | | | BIT/ACETAMINOPHEN | | + + + + | 2019-11-25 00:00 | acetaminophen 325 MG / | [facility] | | | hydrocodone bitartrate 5 MG | | | | Oral Tablet | | + + + + | 2013-06-12 00:00 | HYDROCODONE | [facility] | | | BIT/ACETAMINOPHEN | | + + + + | 2013-06-12 00:00 | HYDROCODONE | [facility] | | | BIT/ACETAMINOPHEN | | + + + + | 2014-06-20 00:00 | HYDROCODONE | [facility] | | | BIT/ACETAMINOPHEN | | + + + + | 2014-06-20 00:00 | HYDROCODONE | [facility] | | | BIT/ACETAMINOPHEN | | + + + + | 2016-02-09 00:00 | HYDROCODONE | [facility] | | | BIT/ACETAMINOPHEN | | + + + + | 2016-02-09 00:00 | HYDROCODONE | [facility] | | | BIT/ACETAMINOPHEN | | + + + + | 2016-06-23 00:00 | HYDROCODONE | [facility] | | | BIT/ACETAMINOPHEN | | + + + + | 2016-06-23 00:00 | HYDROCODONE | [facility] | | | BIT/ACETAMINOPHEN | | + + + + | 2013-06-12 00:00 | acetaminophen 325 MG / | [facility] | | | hydrocodone bitartrate 5 MG | | | | Oral Tabl | | + + + + | 2014-06-20 00:00 | acetaminophen 325 MG / | [facility] | | | hydrocodone bitartrate 5 MG | | | | Oral Tabl | | + + + + | 2016-02-09 00:00 | acetaminophen 325 MG / | [facility] | | | hydrocodone bitartrate 5 MG | | | | Oral Tabl | | + + + + | 2016-06-23 00:00 | acetaminophen 325 MG / | [facility] | | | hydrocodone bitartrate 5 MG | | | | Oral Tabl | | + + + + | 2023-01-26 00:00 | HYDROCODONE | [facility] | | | BIT/ACETAMINOPHEN | | + + + + | 2023-01-26 00:00 | acetaminophen 325 MG / | [facility] | | | hydrocodone bitartrate 7.5 | | | | MG Oral Ta | | + + + + | 2023-01-26 00:00 | HYDROCODONE | [facility] | | | BIT/ACETAMINOPHEN | | + + + + | 2023-02-01 00:00 | HYDROCODONE | [facility] | | | BIT/ACETAMINOPHEN | | + + + + | 2023-02-17 00:00 | HYDROCODONE | [facility] | | | BIT/ACETAMINOPHEN | | + + + + | 2023-03-12 00:00 | HYDROCODONE | [facility] | | | BIT/ACETAMINOPHEN | | + + + + | 2023-01-26 00:00 | acetaminophen 325 MG / | [facility] | | | hydrocodone bitartrate [...] | 2023-01-26 00:00 | PRAMIPEXOLE DI-HCL | [facility] | + + + + | 2023-02-01 00:00 | PRAMIPEXOLE DI-HCL | [facility] | + + + + | 2023-02-17 00:00 | PRAMIPEXOLE DI-HCL | [facility] | + + + + | 2023-03-12 00:00 | PRAMIPEXOLE DI-HCL | [facility] | + + + + | 2023-01-26 00:00 | pramipexole | [facility] | | | dihydrochloride 0.5 MG Oral | | | | Tablet [Mirapex] | | + + + + | 2023-02-01 00:00 | ALBUTEROL SULFATE | [facility] | + + + + | 2023-02-17 00:00 | ALBUTEROL SULFATE | [facility] | + + + + | 2023-03-12 00:00 | ALBUTEROL SULFATE | [facility] | + + + + | 2022-06-15 00:00 | HYDROcodone-Acetaminophen | [facility] | | | 7.5-325 MG/15ML Oral | | | | Solution | | + + + + | 2023-01-26 00:00 | 24 HR metoprolol succinate | [facility] | | | 100 MG Extended Release | | | | Oral Tabl | | + + + + | 2023-01-18 00:00 | 24 HR metoprolol succinate | [facility] | | | 100 MG Extended Release | | | | Oral Tablet | | + + + + | 2023-01-26 00:00 | METOPROLOL SUCCINATE | [facility] | + + + + | 2023-02-01 00:00 | METOPROLOL SUCCINATE | [facility] | + + + + | 2023-02-17 00:00 | METOPROLOL SUCCINATE | [facility] | + + + + | 2023-03-12 00:00 | METOPROLOL SUCCINATE | [facility] | + + + + [...] | 2023-02-01 00:00 | METOPROLOL SUCCINATE | [facility] | + + + + | 2023-01-18 00:00 | 24 HR metoprolol succinate | [facility] | | | 50 MG Extended Release | | | | Oral Tablet | | + + + + | 2023-02-01 00:00 | METOPROLOL SUCCINATE | [facility] | + + + + | 2023-02-17 00:00 | METOPROLOL SUCCINATE | [facility] | + + + + | 2023-03-12 00:00 | METOPROLOL SUCCINATE | [facility] | + + + + | 2023-01-26 00:00 | METOPROLOL TARTRATE | [facility] | + + + + | 2023-02-01 00:00 | METOPROLOL TARTRATE | [facility] | + + + + | 2023-02-17 00:00 | METOPROLOL TARTRATE | [facility] | + + + + | 2023-03-12 00:00 | METOPROLOL TARTRATE | [facility] | + + + + | 2023-01-26 00:00 | metoprolol tartrate 25 MG | [facility] | | | Oral Tablet | | + + + + | 2016-08-11 00:00 | ONDANSETRON | [facility] | + + + + | 2016-08-11 00:00 | ONDANSETRON | [facility] | + + + + | 2016-08-11 00:00 | ondansetron 4 MG | [facility] | | | Disintegrating Oral Tablet | | | | [Zofran] | | + + + + | 2019-05-14 00:00 | Nystatin [id number]/GM | [facility] | | | External Powder | | + + + + | 2019-11-25 00:00 | Furosemide 20 MG Oral | [facility] | | | Tablet | | + + + + | 2020-03-09 00:00 | Furosemide 20 MG Oral | [facility] | | | Tablet | | + + + + | 2019-05-21 00:00 | Furosemide 20MG Oral | [facility] | | | Tablet | | + + + + | 2023-01-26 00:00 | HYDROMORPHONE HCL | [facility] | + + + + | 2023-02-01 00:00 | HYDROMORPHONE HCL | [facility] | + + + + | 2023-02-17 00:00 | HYDROMORPHONE HCL | [facility] | + + + + | 2023-03-12 00:00 | HYDROMORPHONE HCL | [facility] | + + + + | 2023-01-26 00:00 | hydromorphone | [facility] | | | hydrochloride 4 MG Oral | | | | Tablet [Dilaudid] | | + + + + | 2023-01-26 00:00 | LOSARTAN POTASSIUM | [facility] | + + + + | 2023-02-01 00:00 | LOSARTAN POTASSIUM | [facility] | + + + + | 2023-02-17 00:00 | LOSARTAN POTASSIUM | [facility] | + + + + | 2023-03-12 00:00 | LOSARTAN POTASSIUM | [facility] | + + + + | 2023-01-18 00:00 | losartan potassium 25 MG | [facility] | | | Oral Tablet | | + + + + | 2023-01-26 00:00 | losartan potassium 25 MG | [facility] | | | Oral Tablet | | + + + + | 2023-01-26 00:00 | 24 HR bupropion | [facility] | | | hydrochloride 150 MG | | | | Extended Release Oral T | | + + + + | 2023-01-26 00:00 | BUPROPION HCL | [facility] | + + + + | 2023-02-27 00:00 | 24 HR bupropion | [facility] | | | hydrochloride 300 MG | | | | Extended Release Oral | | | | Tablet | | + + + + | 2023-02-01 00:00 | buPROPion HCL | [facility] | + + + + | 2023-02-17 00:00 | buPROPion HCL | [facility] | + + + + | 2023-03-12 00:00 | buPROPion HCL | [facility] | + + + + | 2023-01-23 00:00 | Pregabalin 75MG Oral | [facility] | | | Capsule Extended Release | | + + + + | 2019-11-25 00:00 | | [facility] | | | Sulfamethoxazole-Trimethopr | | | | im 800-160 Oral Tablet | | + + + + | 2022-06-15 00:00 | Vitamin D2 50,000 IU | [facility] | | | Mouth/Throat [...] 00:00 | Albuterol Sulfate HFA 108 | [facility] | | | (90)mcg/act Inhalation | | | | Inhaler | | + + + + | 2022-06-15 00:00 | buPROPion 150 mg Oral | [facility] | | | Tablet Extended Release 24 | | | | Hour | | + + + + | 2023-01-23 00:00 | buPROPion 150 mg Oral | [facility] | | | Tablet Extended Release 24 | | | | Hour | | + + + + | 2023-02-27 00:00 | buPROPion 150 mg Oral | [facility] | | | Tablet Extended Release 24 | | | | Hour | | + + + + Problems + + + + | date | description | facility | + + + + | 2014-06-08 00:00 | Transient cerebral | [facility] | | | ischemia | | + + + + | 2014-06-08 00:00 | Transient cerebral | [facility] | | | ischemia | | + + + + | 2014-06-08 00:00 | Transient cerebral | [facility] | | | ischemia | | + + + + | 2014-06-20 00:00 | Abdominal pain | [facility] | + + + + | 2014-06-20 00:00 | Ulcerative lesion | [facility] | + + + + | 2014-06-20 00:00 | Ulcerative lesion | [facility] | + + + + | 2014-06-20 00:00 | Ulcerative lesion | [facility] | + + + + | 2014-06-20 00:00 | Abdominal pain | [facility] | + + + + | 2014-06-20 00:00 | Abdominal pain | [facility] | + + + + | 2014-07-26 00:00 | Gastrointestinal | [facility] | | | hemorrhage | | + + + + | 2014-07-26 00:00 | Gastrointestinal | [facility] | | | hemorrhage | | + + + + | 2014-07-26 00:00 | Gastrointestinal | [facility] | | | hemorrhage | | + + + + | 2014-09-16 00:00 | Pain | [facility] | + + + + | 2014-09-16 00:00 | Pain | [facility] | + + + + | 2014-09-16 00:00 | Pain | [facility] | + + + + | 2014-09-19 00:00 | Chronic abdominal pain | [facility] | + + + + | 2014-09-19 00:00 | Chronic abdominal pain | [facility] | + + + + | 2014-09-19 00:00 | Chronic abdominal pain | [facility] | + + + + | 2014-10-09 00:00 | Peptic ulcer | [facility] | + + + + | 2014-10-09 00:00 | Peptic ulcer | [facility] | + + + + | 2014-10-09 00:00 | Peptic ulcer | [facility] | + + + + | 2014-11-02 00:00 | Acute low back pain | [facility] | + + + + | 2014-11-02 00:00 | Acute low back pain | [facility] | + + + + | 2014-11-02 00:00 | Acute low back pain | [facility] | + + + + | 2014-11-03 00:00 | Injury of back | [facility] | + + + + | 2014-11-03 00:00 | Injury of back | [facility] | + + + + | 2014-11-03 00:00 | Injury of back | [facility] | + + + + | 2014-11-04 00:00 | Back pain | [facility] | + + + + | 2014-11-04 00:00 | Back pain | [facility] | + + + + | 2014-11-04 00:00 | Back pain | [facility] | + + + + | 2016-02-09 00:00 | Chest pain of uncertain | [facility] | | | etiology | | + + + + | 2016-02-09 00:00 | Epigastric pain | [facility] | + + + + | 2016-02-09 00:00 | Chest pain of uncertain | [facility] | | | etiology | | + + + + | 2016-02-09 00:00 | Chest pain of uncertain | [facility] | | | etiology | | + + + + | 2016-02-09 00:00 | Epigastric pain | [facility] | + + + + | 2016-02-09 00:00 | Epigastric pain | [facility] | + + + + | 2016-04-01 00:00 | Status post gastric bypass | [facility] | | | for obesity | | + + + + | 2016-04-01 00:00 | Chronic anemia | [facility] | + + + + | 2016-04-01 00:00 | Restless leg syndrome | [facility] | + + + + | 2016-04-01 00:00 | Type 2 diabetes mellitus | [facility] | + + + + | 2016-04-01 00:00 | Essential hypertension | [facility] | + + + + | 2016-04-01 00:00 | Cerebrovascular disease | [facility] | + + + + | 2016-04-01 00:00 | Amphetamine abuse | [facility] | + + + + | 2016-04-01 00:00 | Chronic anemia | [facility] | + + + + | 2016-04-01 00:00 | Chronic anemia | [facility] | + + + + | 2016-04-01 00:00 | Type 2 diabetes mellitus | [facility] | + + + + | 2016-04-01 00:00 | Type 2 diabetes mellitus | [facility] | + + + + | 2016-04-01 00:00 | Amphetamine abuse | [facility] | + + + + | 2016-04-01 00:00 | Amphetamine abuse | [facility] | + + + + | 2016-04-01 00:00 | Restless legs syndrome | [facility] | + + + + | 2016-04-01 00:00 | Restless legs syndrome | [facility] | + + + + | 2016-04-01 00:00 | Essential hypertension | [facility] | + + + + | 2016-04-01 00:00 | Essential hypertension | [facility] | + + + + | 2016-04-01 00:00 | Cerebrovascular disease | [facility] | + + + + | 2016-04-01 00:00 | Cerebrovascular disease | [facility] | + + + + | 2016-04-01 00:00 | Status post gastric bypass | [facility] | | | for obesity | | + + + + | 2016-04-01 00:00 | Status post gastric bypass | [facility] | | | for obesity | | + + + + | 2016 00:00 | Acute peptic ulcer with | [facility] | | | hemorrhage | | + + + + | 2016 00:00 | Acute peptic ulcer with | [facility] | | | hemorrhage | | + + + + | 2016 00:00 | Acute peptic ulcer with | [facility] | | | hemorrhage | | + + + + | 2016-04-22 00:00 | Chest pain | [facility] | + + + + | 2016-04-22 00:00 | Chest pain | [facility] | + + + + | 2016-04-22 00:00 | Chest pain | [facility] | + + + + | 2016-05-17 00:00 | Gastritis | [facility] | + + + + | 2016-05-17 00:00 | Gastritis | [facility] | + + + + | 2016-05-17 00:00 | Gastritis | [facility] | + + + + | 2016-08-11 00:00 | Abdominal pain | [facility] | + + + + | 2016-08-11 00:00 | Gastric ulcer | [facility] | + + + + | 2016-08-11 00:00 | Gastric ulcer | [facility] | + + + + | 2016-08-11 00:00 | Gastric ulcer | [facility] | + + + + | 2016-08-11 00:00 | Abdominal pain | [facility] | + + + + | 2016-08-11 00:00 | Abdominal pain | [facility] | + + + + | 2017-01-04 00:00 | Esophageal obstruction due | [facility] | | | to food impaction | | + + + + | 2017-01-04 00:00 | Obstruction of esophagus | [facility] | | | due to food impaction | | + + + + | 2017-01-04 00:00 | Obstruction of esophagus | [facility] | | | due to [...] + | 2019-05-15 00:00 | Neuropathy | [facility] | | | | [...] 2019-05-15 00:00 | Stroke/cerebrovascular | [facility] | | | Accident | | + + + + | 2019-05-15 00:00 | Renal Disorders | [facility] | | | | | [...] + | 2023-01-23 00:00 | Depression | [facility] | | | | | + + + + | 2023-01-26 00:00 | CHF (congestive heart | [facility] | | | failure) | | + + + + | 2023-01-26 00:00 | Congestive heart failure | [facility] | + + + + | 2023-01-26 00:00 | Congestive heart failure | [facility] | + + + + [...] + + | 2023-01-26 15:10 | OTHER TAKER OFF DRYING KILN (CURRENT) | [facility] | | | DRUG THERAPY | | + + + + | 2023-01-26 15:10 | ALLERGY STATUS TO OTH | [facility] | | | DRUG/MEDS/BIOL SUBST STATUS | | | | | | + + + + | 2023-01-30 00:00 | Hypotension | [facility] | + + + + | 2023-01-30 00:00 | Bradycardia | [facility] | + + + + | 2023-01-30 00:00 | Side effect of medication | [facility] | + + + + [...] 2023-02-15 00:00 | Medication overdose | [facility] | + + + + | 2023-02-15 [...] + + + | 2023-02-15 11:26 | USP (CURRENT) USE OF | [facility] | | | ANTICOAGULANTS | | + + + + | 2023-02-15 11:26 | OTHER TAKER OFF DRYING KILN (CURRENT) | [facility] | | | DRUG [...] + | 2023-03-12 00:00 | Dehydration | [facility] | + + + + | 2023-03-12 00:00 | Acute kidney injury | [facility] | + + + + [...] + + | 2023-03-12 09:16 | OTHER USP (CURRENT) | [facility] | | | DRUG [...] 2023-03-27 00:00 | HEART FAILURE CONGESTIVE | [facility] | | | | | + + + + | 2023-03-27 00:00 | Congestive Heart Failure | [facility] | | | | | [...] | (unknown) | | | | | Chrsitian | value) | unknown) | | | [...] | (unknown) | | | | | Christina | value) | unknown) | | | [...] 00:00 | Unknown if ever smoked | [facility] | | | | | + + + + | 2023-01-06 00:00 | Unknown if ever smoked | [facility] | | | | | + + + + | 2023-01-18 00:00 | Unknown if ever smoked | [facility] | | | | | + + + + | 2023-01-23 00:00 | Unknown if ever smoked | [facility] | | | | | + + + + | 2023-01-26 00:00 | Never smoker | [facility] | + + + + | 2023-02-27 00:00 | Unknown if ever smoked | [facility] | | | | | + + + + | 2023-03-27 00:00 | Unknown if ever smoked | [facility] | | | | [...]
[~2023-03-28 12:33] MED LIST changes: +ALDACTONE25 MG PO; +CYCLOBENZAPRINE10 MG PO; +FERROUS SULFAT325 M2 PO; +HYDROCODON-ACE1 EA10 PO; +METOPROLOL SUCC25 MG PO; +METOPROLOL SUCC50 MG PO; +PREGABALIN75 MG PO; +VENTOLIN HFA18 GM INH; +WELLBUTRIN XL300 MG PO
--- OUTSIDE RECORDS SUMMARY | 2023-03-28 12:36 | XMS ---
PreManage Notification: SARABJIT ESPITIA Security Wellness Consultant Events No recent Security Events currently on file CRITERIA MET - 6 ED Visits in 6 Months - [facility] - [facility] - 2 Visits in 30 Days CARE PROVIDERS -[place]- Dentist: [facility] PHONE: [phone] MANUELA SOMMERS [facility] Medicine 06/04/2016-Current PHONE: Unknown Katlyn Reddy Nurse Practitioner: Family [facility] PHONE: Unknown Deyanira Gudino Community Health Worker 09/20/2022-Current PHONE: [phone] Erica has no Care Guidelines for this patient. Arlene VISIT COUNT (12 MO.) [address] [id number] SALLY Montiel TOTAL 22 NOTE: Visits indicate total known visits. ED/UCC VISIT TRACKING (12 MO.) 03/28/2023 12:34 [facility] [place] TYPE: Emergency COMPLAINT: - CHEST PAIN 03/12/2023 09:16 [facility] [place] TYPE: Emergency COMPLAINT: - UNABLE TO URINATE, DIZZY DIAGNOSES: - Acute kidney failure, unspecified - Allergy status to narcotic agent - Chronic obstructive pulmonary disease, unspecified - Dehydration - Dizziness and giddiness - Heart failure, unspecified - Other assisted (current) drug therapy - Type 2 diabetes mellitus without complications 02/15/2023 11:25 [facility] [place] TYPE: Emergency COMPLAINT: - BLOOD PRESSURE PROBLEM 02/03/2023 15:06 [facility] [place] TYPE: Emergency DIAGNOSES: - Cardiomyopathy due to drug and external agent - Heat exhaustion, unspecified, initial encounter - STROKE 01/30/2023 12:[address] [facility] TYPE: Emergency COMPLAINT: - SYNCOPE EPISODES, DIZZY, NAUSEA, LOW B/P 01/26/2023 15:[address] [facility] [place] [facility] [place] TYPE: Emergency COMPLAINT: - HEART PALPATATIONS DIAGNOSES: - Allergy status to other drugs, medicaments and biological substances - Chronic obstructive pulmonary disease, unspecified - Heart failure, unspecified - Other assisted (current) drug therapy - Shortness of breath - Type 2 diabetes mellitus without complications - Unspecified atrial fibrillation 01/05/2023 13:35 [facility] [place] TYPE: Emergency DIAGNOSES: - Heart failure, unspecified - VOMITING 01/02/2023 08:38 [facility] [place] TYPE: Emergency DIAGNOSES: - Acute cystitis without hematuria - Heart failure, unspecified - HEART PROBLEM 12/30/2022 14:25 [employer] [place] TYPE: Emergency DIAGNOSES: - Cardiomyopathy due to drug and external agent - Localized edema - Other stimulant abuse, uncomplicated - Patient's noncompliance with other medical treatment and regimen due to unspecified reason - RIGHT EAR PROBLEM BILATERAL LEG BLISTERS 12/15/2022 11:11 [facility] [place] TYPE: Emergency DIAGNOSES: - Fluid overload, unspecified - Patient's other noncompliance with medication regimen - CHF SWELLING 11/08/2022 09:45 [employer] [place] TYPE: Emergency DIAGNOSES: - Heart failure, unspecified - Syncope and collapse - LEG PAIN/SWELLING 11/06/2022 08:48 [facility] [place] [place] [facility]: Emergency DIAGNOSES: - Localized edema - Leg swelling 10/10/2022 22:35 [facility] [place] TYPE: Emergency DIAGNOSES: - Acute on chronic systolic (congestive) heart failure - Cardiogenic shock - Hypomagnesemia - Other stimulant abuse, uncomplicated - CP 09/27/2022 12:10 [facility] TYPE: Emergency DIAGNOSES: - Shortness of breath - Unspecified atrial fibrillation - Palpitations 09/11/2022 12:53 [facility] [place] TYPE: Emergency DIAGNOSES: - Other psychoactive substance abuse, uncomplicated - Unspecified atrial fibrillation - SOB 09/05/2022 17:48 [facility] [place] TYPE: Emergency DIAGNOSES: - Unspecified atrial fibrillation - CHEST PAIN 08/09/2022 18:12 [facility] [place] TYPE: Emergency DIAGNOSES: - AFIB 08/06/2022 18:30 [facility] [place] TYPE: Emergency DIAGNOSES: - Nausea with vomiting, unspecified - VOMITING SOB 07/31/2022 07:50 [employer] [place] TYPE: Emergency DIAGNOSES: - Unspecified atrial fibrillation - arm pain difficulty breathing 06/04/2022 08:45 [facility] [place] TYPE: Emergency DIAGNOSES: - Adverse effect of unspecified drugs, medicaments and biological substances, initial encounter - POST OP PROBLEM VOMITING Plus 2 More Visits INPATIENT VISIT TRACKING (12 MO.) 02/15/2023 11:[address] [facility] [place] TYPE: Observation COMPLAINT: - AFIB W SLOW RVR HYPOTENSION DIAGNOSES: - Acute kidney failure, unspecified - Allergy status to other drugs, medicaments and biological substances - Bariatric surgery status - Chronic kidney disease, stage 3b - Chronic obstructive pulmonary disease, unspecified - Chronic pain syndrome - Chronic systolic (congestive) heart failure - Dizziness and giddiness - Hyperkalemia - Hypertensive heart and chronic kidney disease with heart failure and stage 1 through stage 4 chronic kidney disease, or unspecified chronic kidney disease - Hypotension, unspecified - buttermaker continuous churn (current) use of anticoagulants - Major depressive disorder, recurrent, in remission, unspecified - Other abnormalities of gait and mobility - Other assisted (current) drug therapy - Other persistent atrial fibrillation - Other specified disorders of brain - Poisoning by beta-adrenoreceptor antagonists, accidental (unintentional), initial encounter - Type 2 diabetes mellitus with diabetic chronic kidney disease - Type 2 diabetes mellitus with diabetic polyneuropathy - Unspecified abdominal pain 01/30/2023 16:44 [facility] [place] TYPE: Critical Care COMPLAINT: - ALECIA, HYPOTENSION DIAGNOSES: - Acidosis, unspecified - Acidosis, unspecified - Acute kidney failure, unspecified - Allergy status to other drugs, medicaments and biological substances - Allergy status to other drugs, medicaments and biological substances - Bariatric surgery status - Bariatric surgery status - Cerebral infarction due to unspecified occlusion or stenosis of left posterior cerebral artery - Cerebral infarction due to unspecified occlusion or stenosis of left posterior cerebral artery - Chronic atrial fibrillation, unspecified - Chronic atrial fibrillation, unspecified - Chronic kidney disease, stage 3a - Chronic kidney disease, stage 3a - Chronic obstructive pulmonary disease, unspecified - Chronic obstructive pulmonary disease, unspecified - Chronic pain syndrome - Chronic pain syndrome - Chronic systolic (congestive) heart failure - Chronic systolic (congestive) heart failure - Heart failure, unspecified - Hypertensive heart and chronic kidney disease with heart failure and stage 1 through stage 4 chronic kidney disease, or unspecified chronic kidney disease - Hypertensive heart and chronic kidney disease with heart failure and stage 1 through stage 4 chronic kidney disease, or unspecified chronic kidney disease - Hypotension, unspecified - Hypotension, unspecified - Other stimulant abuse, uncomplicated - Other stimulant abuse, uncomplicated - Other stimulant use, unspecified, uncomplicated - Peptic ulcer, site unspecified, unspecified as acute or chronic, without hemorrhage or perforation - Peptic ulcer, site unspecified, unspecified as acute or chronic, without hemorrhage or perforation - Personal history of pulmonary embolism - Personal history of pulmonary embolism - Polyneuropathy, unspecified - Polyneuropathy, unspecified - Prediabetes - Prediabetes - Unspecified atrial fibrillation 10/11/2022 09:12 [facility] TYPE: Cardiology DIAGNOSES: - Acute kidney failure with tubular necrosis - Acute kidney failure, unspecified - Acute on chronic systolic (congestive) heart failure - Cardiogenic shock - COVID-19 - Longstanding persistent atrial fibrillation - Other stimulant abuse, uncomplicated - Pneumonia due to coronavirus disease 2018 - Unspecified systolic (congestive) heart failure - Cardiogenic shock 09/11/2022 12:53 [facility] [employer] [place] TYPE: Medical Surgical DIAGNOSES: - Hypoxemia - Other psychoactive substance abuse, uncomplicated - Unspecified atrial fibrillation 08/09/2022 18:12 [facility] [place] TYPE: Medical Surgical DIAGNOSES: - Unspecified atrial fibrillation 07/31/2022 07:50 [facility] [place] TYPE: Medical Surgical DIAGNOSES: - Unspecified atrial fibrillation [email or web address]
[2023-03-28 16:56] VITALS: BP 97/71
--- NOTE | 2023-03-30 15:20 | EKG ---
[facility] [address] [facility] [place] [address] Signed Atrial fibrillation with rapid ventricular response Abnormal ECG When compared with ECG of 15-FEB-2023 11:27, Vent. rate has increased BY 56 BPM Confirmed by ALEX ABEL MD ([id number]) on 03/30/2023 3:20:31 PM Electronically Signed By: ALEX ABEL 03/30/23 1520 PATIENT NAME: NUPURSARABJIT BAUDILIO Electrocardiogram DATE OF : 61 PHYSICIAN: ALEX ABEL REPORT #: [id number] REPORT IS CONFIDENTIAL AND NOT TO BE RELEASED WITHOUT AUTHORIZATION
== END 2023-03-28 16:57 | disposition home or self-care (01) ==
LOC: ED 12:33
DX: I48.91 Unspecified atrial fibrillation (principal); I20.9 Angina pectoris, unspecified; J44.9 Chronic obstructive pulmonary disease, unspecified; I50.9 Heart failure, unspecified; Z88.5 Allergy status to narcotic agent; Z79.01 Long term (current) use of anticoagulants; Z79.899 Other long term (current) drug therapy
CPT/HCPCS: 36415; 71045; 80053; 83735; 83880; 84484; 85025; 93005; 93010; 99285 25; A9270